=== PATIENT | male | born 1955 | race Caucasian/White ===

== ENCOUNTER 2025-02-07 10:29 | Outpatient (REF) | payer MEDICARE, SELFPAY ==
--- OUTSIDE RECORDS SUMMARY | 2025-02-06 09:00 | XMS_ITS | Encounter Summary ---
Author Organization [facility] Address [address] [place] [address] Care Team Providers Care Oil Well Logger Name Role Phone Pankaj Storey Primary Care Provider [phone] Reason for Visit * Reason Comments Cough Asthma * Consultation (Routine) - Authorized Specialty Diagnoses / Procedures Referred By Patel parra Referred To Contact Pulmonology Diagnoses Cough Asthma Procedures WI VISIT OFFICE OUTPATIENT ESTABLISHED MODERATE LEVEL Pankaj Storey PA [address] [facility] [address] [place] [address] Phone: tel: fax: Pulmonology - [place] 175 [facility] [address] [place] [address] Phone: tel: fax: Referral ID Status Reason Start Date Expiration Date V isits Requested Visits Authorized [id number] Authorized 01/10/2025 01/10/2026 1 1 Encounter Details Date Type Department Care Team ([facility] st Contact Info) Description 02/06/2025 9:00 AM EDT Consult Pulmonology [facility] [address] [facility] [address] [place] [phone] Jessica Ulrich MD 175 [facility] [address] [place] [address] Mild intermittent asthma, unspecified whether complicated (Primary Dx) Social History Tobacco Use Types Packs/Day Years Used Date Smoking Tobacco: Never Smokeless Tobacco: Never Alcohol Use Standard Drinks/Week Comments Yes 0 (1 standard drink = 0.6 oz pur e alcohol) Sex and Gender Information Value Date Recorded Sex Assigned at Male 01/26/2025 4:26 PM EDT Legal Sex Male 4:07 PM EST Gender Identity Male 01/26/2025 4:26 PM EDT Sexual Orientation Not on file documented as of this encounter Last Filed Vital Signs Vital Sign Reading Time Taken Comments Blood Pressure 130/78 02/06/2025 9:18 AM EDT Pulse 55 02/06/2025 9:18 AM EDT Temperature - - Respiratory Rate - - Oxygen Saturation 96% 02/06/2025 9:18 AM EDT Inhaled Oxygen Concentration - - Weight 79.7 kg (175 lb 12.8 oz) 02/06/2025 9:18 AM EDT Height 182.9 cm (6') 02/06/2025 9:18 AM EDT Body Mass Index 23.84 02/06/2025 9:18 AM EDT documented in this encounter Ordered Prescriptions Prescription Sig Dispense Quantity Refills Last Filled Start Date End Date albuterol HFA (PROAIR HFA ; PROVENTIL HFA ; VENTOLIN HFA) 90 mcg/actuation inhaler Inhale 2 puffs by mouth every 6 (six) hours if needed for wheezing. 6.7 g 1 02/06/2025 02/06/2026 documented in this encounter Progress Notes * Jessica Ulrich MD - 02/06/2025 9:00 AM EDT ADULT PULMONARY CONSULT CHIEF COMPLAINT or REASON FOR CONSULTATION: Cough and Asthma HISTORY OF PRESENT ILLNESS: Pipo Vidal is a 69 y.o. years old, male with a history of mild intermittent asthma, OSAand allergic rhinitis well controlled now. Last seen by me in 04/2020. He was on Flovent and montelukast that.The patient was also seeing ENT for postnasal drip. Since last visit, his pulmonary status has beenvery stable and he has been off his maintenance minute patient as well as montelukast. He has no chronic cough, wheezing or shortness of breath. The patient went to PCP for nasal congestion and cough, the symptoms improved with flonase and atrovent. No fever, wheezing or SOB. In terms of CHETAN- sleepon the side. No symptoms or drowsiness driving ALLERGIES: Current Allergies[1] ACTIVE MEDICATIONS: Medications Taking[2] PROVIDER ATTESTS THAT THE MEDICATION LIST WAS OBTAINED, REVIEWED AND UPDATED. REVIEW OF SYSTEMS: GENERAL: No wt lost or fever ENT: +snoring, + nasal congestion Eye: RESPIRATORY: + cough, wheezing and dyspnea CARDIOVASCULAR: No chest pain, leg swelling or palpitations GI: No abdominal discomfort, MUSCULOSKELETAL: +backpain HEMATOLOGY/LYMPHOLOGY No prolonged bleeding, easy bruisability ENDOCRINE: no DM NEURO: No focal weakness : Psych: no depression PAST MEDICAL HISTORY: There are no active problems to display for this patient. Surgical History[3] FAMILY HISTORY: Family History[4] OCCUPATION OR OCCUPATION EXPOSURE: retire SOCIAL HISTORY Social History Socioeconomic History Marital status: Spouse name: Not on file Number of children: Not on file Years of education: Not on file Highest education level: Not on file Occupational History Not on file Tobacco Use Smoking status: Never Smokeless tobacco: Never Substance and Sexual Activity Alcohol use: Yes Drug use: No Sexual activity: Not on file Other Topics Concern Not on file Social History Narrative Not on file IMMUNIZATION: Immunization History Administered Date(s) Administered Pfizer (ages 12 & older) Bivalent, COVID-19 04/27/2022 Pfizer (ages 12 & older) SARS-CoV-2 COVID-19, mRNA, LNP-S, jb-sucrose, preservative free 10/13/2021 Pfizer SARS-CoV-2 COVID-19, mRNA, LNP-S, preservative free 07/02/2020, 07/24/2020, 02/28/2021 PHYSICAL EXAM: Visit Vitals BP 130/78 (BP Location: Left arm, Patient Position: Sitting, BP Cuff Size: Adult long) Pulse 55 Ht 1.829 m (72 ) Wt 79.7 kg (175 lb 12.8 oz) SpO2 96% BMI 23.84 kg/m?? Smoking Status Never BSA 2.02 m?? APPEARANCE: Alert and in no acute distress. Tall, thin EYES: Conjunctiva and sclera normal. NOSE/SINUS: Nares normal. Septum midline. Mucosa No drainage or sinus tenderness. MOUTH/THROAT: no erythema or exudates. Mallampati class 2 NECK: Neck supple, thyroid symmetric and of normal size. HEART: RRR with normal S1 and S2, no murmurs, no gallops, no JVD appreciated. LUNG: CTA b/l, no wheezing or bronchial bs ABDOMEN: Bowel sounds normoactive, soft, non-tender EXTREMITIES: no clubbing, cyanosis, or edema. LYMPH NODES: No cervical and supra-clavicular lymphadenopathy. NEURO: Awake, alert and oriented x 3, no focalization Derm: no rash DIAGNOSTIC DATA: CARDIOPULMONARY TEST:01/27/25 SPIROMETRY: FEV1 is 99 % predicted and an FVC is 89 % predicted. The FEV1/FVC ratio is 109% of normal, no response to bronchodilators noted. LUNG VOLUMES: Total lung capacity (TLC): 85% predicted. Residual volume (RV): 88% predicted RV/TLC ratio is 105% of normal DIFFUSION CAPACITY: DLCO 123% predicted. DlCO/VA 122% of predicted COMPARISONS: INTERPRETATION: This pulmonary function test shows normal spirometry and diffusion. There is no evidence of lung disease based on this PFT RADIOLOGIST IMAGING: cxr 12/2024 [facility] per pt ASSESSMENT: ICD-10-CM ICD-9-CM 1. Mild intermittent asthma, unspecified whether complicated J45.20 493.90 PLAN: The patient's PFT and chest x-ray were both normal in the last 2 months. He has no chronic lung disease and has no shortness of breath with regular activities. I sent him a prescription for as neededalbuterol. No other interventions is indicated - Follow up with ERIKA Armas for the other co-morbilities. - I spend 34 Minutes on this visit. The patient was educated about his problems, where assessment and plan was reviewed and explained, All questions were answered. This includes: Preparing to see the patient, obtaining and/or reviewing separately obtained history, performing a medically appropriate exam, ordering medications, tests, or procedures, documenting clinical information in the electronic health record, and independently interpreting results. RETURN TO THE NEXT VISIT: Based on physical exam, symptomatology, tests requested and baseline pulmonary evaluation/disease, I instructed the patient to come back to see me in prn for reevaluation after the test has been doneor earlier if the patient needed. Thanks ERIKA Armas for allowing me to have the opportunity to assist in the care of this patient. [1] No Known Allergies [2] Outpatient Medications Marked as Taking for the 02/06/25 encounter (Consult) with Jessica Ulrich MD Medication Sig Dispense Refill amLODIPine (NORVASC) 2.5 mg tablet Take 1 tablet (2.5 mg total) by mouth 1 (one) time each day. coenzyme Q-10 100 mg capsule Take 1 capsule (100 mg total) by mouth 1 (one) time each day. Eliquis 5 mg tablet Take 1 tablet (5 mg total) by mouth 2 (two) times a day. ezetimibe (ZETIA) 10 mg tablet Take 1 tablet (10 mg total) by mouth 1 (one) time each day. finasteride (PROSCAR) 5 mg tablet Take 1 tablet (5 mg total) by mouth 1 (one) time each day. fluticasone propionate (FLONASE) 50 mcg/actuation nasal spray Administer 1 spray into each nostril 1 (one) time each day. hydrALAZINE (APRESOLINE) 50 mg tablet Take 1 tablet (50 mg total) by mouth 2 (two) times a day. ipratropium (ATROVENT) 21 mcg (0.03 %) nasal spray Administer 1 spray into each nostril 2 (two) times a day. losartan (COZAAR) 100 mg tablet Take 1 tablet (100 mg total) by mouth 1 (one) time each day. metoprolol succinate (TOPROL-XL) 25 mg 24 hr tablet Take 1 tablet (25 mg total) by mouth 1 (one) time each day. omeprazole (PRILOSEC) 20 mg tablet,delayed release (DR/EC) Take 1 tablet (20 mg total) by mouth. rosuvastatin (CRESTOR) 20 mg tablet Take 1 tablet (20 mg total) by mouth 1 (one) time each day. [3] No past surgical history on file. [4] No family history on file. documented in this encounter Plan of Treatment Not on file documented as of this encounter Visit Diagnoses Diagnosis Mild intermittent asthma, unspecified whether complicated- Primary documented in this encounter Historical Medications * This list may reflect changes made after this encounter. ipratropium (ATROVENT) 21 mcg (0.03 %) nasal spray Administer 1 spray into each nostril 2 (two) times a day. hydrALAZINE (APRESOLINE) 50 mg tablet Take 1 tablet (50 mg total) by mouth 2 (two) times a day. 04/01/2021 metoprolol succinate (TOPROL-XL) 25 mg 24 hr tablet Take 1 tablet (25 mg total) by mouth 1 (one) time each day. 12/30/2011 finasteride (PROSCAR) 5 mg tablet Take 1 tablet (5 mg total) by mouth 1 (one) time each day. 12/09/2022 ezetimibe (ZETIA) 10 mg tablet Take 1 tablet (10 mg total) by mouth 1 (one) time each day. 02/19/2023 coenzyme Q-10 100 mg capsule Take 1 capsule (100 mg total) by mouth 1 (one) time each day. rosuvastatin (CRESTOR) 20 mg tablet Take 1 tablet (20 mg total) by mouth 1 (one) time each day. 11/25/2024 omeprazole (PRILOSEC) 20 mg tablet,delayed release (DR/EC) Take 1 tablet (20 mg total) by mouth. losartan (COZAAR) 100 mg tablet Take 1 tablet (100 mg total) by mouth 1 (one) time each day. 11/25/2024 fluticasone propionate (FLONASE) 50 mcg/actuation nasal spray Administer 1 spray into each nostril 1 (one) time each day. Eliquis 5 mg tablet Take 1 tablet (5 mg total) by mouth 2 (two) times a day. 07/10/2014 amLODIPine (NORVASC) 2.5 mg tablet Take 1 tablet (2.5 mg total) by mouth 1 (one) time each day. 12/09/2022 added in this encounter Care Teams Oil Well Logger Relationship Specialty Start Date End Date Pankaj Storey PA [address] [phone] PCP - General Internal Medicine 01/26/25 documented as of this encounter
--- OUTSIDE RECORDS SUMMARY | 2025-02-07 11:44 | XMS_ITS | Clinical Summary ---
Author Organization [facility] Address [address] [facility] [address] [place] [address] Phone Care Team Providers Care Ppa Teacher Name Role Phone Kaleb Vilchis MD Primary Care Provider Meredith Nayak MD Unavailable Allergies No known active allergies Medications BABY ASPIRIN ORAL Take by mouth. Active metoprolol succinate (TOPROL-XL) 25 MG 24 hr tablet Take 25 mg by mouth daily. Active valsartan (DIOVAN) 80 MG tablet Take 80 mg by mouth daily. Active hydrALAZINE (APRESOLINE) 25 MG tablet Take 25 mg by mouth daily. Active ATORVASTATIN CALCIUM (LIPITOR ORAL) Take 20 mg by mouth daily. Active coenzyme Q10 100 mg capsule Take 100 mg by mouth daily. Active TADALAFIL (CIALIS ORAL) Take by mouth daily as needed. Active nitroglycerin (NITROSTAT) 0.4 MG SL tabletIndicatio ns:never used Place 0.4 mg under the tongue every 5 (five) minutes as needed for chest pain. Indications: never used Active raNITIdine (ZANTAC) 150 MG tablet Take 150 mg by mouth 2 (two) times a day. Active azelastine-flut icasone (DYMISTA) 137-50 mcg/spray Lula 1 spray by Each Nare route 2 (two) times a day. Active apixaban (ELIQUIS) 5 mg tablet Take 5 mg by mouth 2 (two) times a day. 07/10/2014 Active mometasone (ASMANEX HFA) 100 mcg/actuation HFAA Inhale 200 mcg into the lungs as needed. Active losartan (COZAAR) 50 MG tablet Take 50 mg by mouth daily. Active Active Problems Problem Noted Date Diagnosed Date Essential hypertension 03/19/2015 Atherosclerosis of coronary artery 03/19/2015 Atrial fibrillation 11/07/2013 Overview (07/01/2014): Atrial fibrillation Social History Tobacco Use Types Packs/Day Years Used Date Smoking Tobacco: Never Smokeless Tobacco: Never Education Answer Date Recorded Are you interested in more education? Not on ver[place] e 09/05/2022 Are you concerned about learning? Not on file 09/05/2022 No 09/05/2022 No 09/05/2022 Digital Access Answer Date Recorded No 10/05/2022 No 10/05/2022 No 10/05/2022 Reliable internet access at home? Not on file 10/05/2022 Device with a working camera? Not on file Sex and Gender Information Value Date Recorded Sex Assigned at Not on file Legal Sex Male 5:36 PM EST Gender Identity Not on file Sexual Orientation Not on file Last Filed Vital Signs Vital Sign Reading Time Taken Comments Blood Pressure 124/80 12/27/2018 11:45 AM EDT Pulse 52 12/27/2018 11:45 AM EDT Temperature - - Respiratory Rate - - Oxygen Saturation - - Inhaled Oxygen Concentration - - Weight 80.3 kg (177 lb) 12/27/2018 11:45 AM EDT Height 183.5 cm (6' 0.25 ) 03/19/2015 2:35 PM ES T Body Mass Index 23.84 03/19/2015 2:35 PM EST Plan of Treatment Health Maintenance Due Date Last Done Comments BLOOD PRESSURE 1955 HEPATITIS C SCREENING 1971 LIPID PANEL 1971 COLOGUARD 1998 COLONOSCOPY 1998 COLORECTAL CANCER SCREENING 1998 FIT TEST 1998 FOBT 1998 SIGMOIDOSCOPY 1998 VIRTUAL COLONOSCOPY 1998 ZOSTER VACCINES (1 of 2) 2003 CREATININE LEVEL 12/30/2014 12/30/2013, 12/28/2013 POTASSIUM LEVEL 12/30/2014 12/30/2013, 12/28/2013 DEPRESSION SCREENING 12/28/2019 12/27/2018, 03/19/20 15 Adult Td,Tdap Booster 05/13/2020 05/13/2010, 000 PNEUMOCOCCAL VACCINES (50+ years) (3 of 3 - PCV20 or PCV21) 04/21/2024 04/21/2019, 03/11/2002 INFLUENZA VACCINE (#1) 2024 0, 02/04/2019, 01/18/2018, Additional history exists COVID-19 VACCINE (2 - 2024- season) 2025 07/24/2020 RSV VACCINE (1 - 1-dose 75+ series) 2028 SMOKING STATUS SCREENING (Once After 26 Yrs) Completed 12/27/2018 HEPATITIS A VACCINES Aged Out No long er eligible based on patient's age to complete this topic HIB VACCINES Aged Out No longer eligi ble based on patient's age to complete this topic MENINGOCOCCAL VACCINES (ACWY) Aged Out No longer eligible based on patient's age to complete this topic MENINGOCOCCAL VACCINES (B) Aged Out N o longer eligible based on patient's age to complete this topic Medical Devices Not on file Procedures Procedure Name Priority Date/Time Associated Diagnosis Comments HISTORICAL LAB Routine 12/30/2013 7:46 AM EDT from Last 3 Months or Most Recently Relevant to Health Maintenance Results * (ABNORMAL) Historical Lab (12/30/2013 7:46 AM EDT) GLUCOSE 66(A) 70 - 100 mg/dL [facility] UREA N 20 6 - 23 mg/dL [facility] CREATININE 0.98 0.50 - 1.20 mg/dL [facility] eGFR >=60 [facility] Comment: (Abnormal if <60 mL/min/1.73m2 If patient is black, multiply by 1.21) SODIUM 138 136 - 145 mmol/L [facility] POTASSIUM 3.6 3.4 - 5.0 mmol/L [facility] CHLORIDE 104 98 - 107 mmol/L [facility] TOTAL CO2 25 22 - 31 mmol/L [facility] CALCIUM 8.7(A) 8.8 - 10.7 mg/dL [facility] MAGNESIUM 2.3 1.7 - 2.6 mg/dL [facility] ANION GAP 9 5 - 17 mmol/L [facility] 12/30/2013 7:46 AM EDT Comment:BLOOD us Conversion Provider Not In Sys LAB BLOOD ORDERAB LES Final Result [address] [id number] from Last 3 Months or Most Recently Relevant to Health Maintenance Insurance MEDICARE PART A & B [email or web address]EX SUPPLEMENT MEDICARE PART A & B [employer] MEDEX SUPPLEMENT MEDICARE PART A & B [employer] MEDEX SUPPLEMENT MEDICARE PART A & B [employer] MEDEX SUPPLEMENT MEDICARE PART A & B [employer] MEDEX SUPPLEMENT MEDICARE PART A & B [email or web address] MEDEX SUPPLEMENT MEDICARE PART A & B [email or web address] MEDEX SUPPLEMENT MEDICARE PART A & B [email or web address] MEDEX SUPPLEMENT MEDICARE PART A & B [email or web address] MEDEX SUPPLEMENT Care Teams Ppa Teacher Relationship Specialty Start Date End Date Kaleb Vilchis MD [address] [place] [phone] PCP - General 09/14/14 Meredith Nayak MD [address] [place] [address] Cardiology 03/19/15 Additional Source Comments The information contained in this document represents components of the legal health record. It is not the complete legal health record.[facility]
--- OUTSIDE RECORDS SUMMARY | 2025-02-07 11:44 | XMS_ITS | Clinical Summary ---
Author Organization [facility] Address [address] [place] [address] Phone Care Team Providers Care Hand Coremaker Name Role Phone Pankaj Storey Primary Care Provider Allergies No known active allergies Medications amLODIPine (NORVASC) 2.5 mg tablet Take 1 tablet (2.5 mg total) by mouth 1 (one) time each day. 3 Active Eliquis 5 mg tablet Take 1 tablet (5 mg total) by mouth 2 (two) times a day. 5 Active fluticasone propionate (FLONASE) 50 mcg/actuation nasal spray Administer 1 spray into each nostril 1 (one) time each day. Active losartan (COZAAR) 100 mg tablet Take 1 tablet (100 mg total) by mouth 1 (one) time each day. 5 Active omeprazole (PRILOSEC) 20 mg tablet,delayed release (DR/EC) Take 1 tablet (20 mg total) by mouth. Active rosuvastatin (CRESTOR) 20 mg tablet Take 1 tablet (20 mg total) by mouth 1 (one) time each day. 5 Active coenzyme Q-10 100 mg capsule Take 1 capsule (100 mg total) by mouth 1 (one) time each day. Active ezetimibe (ZETIA) 10 mg tablet Take 1 tablet (10 mg total) by mouth 1 (one) time each day. 3 Active finasteride (PROSCAR) 5 mg tablet Take 1 tablet (5 mg total) by mouth 1 (one) time each day. 3 Active metoprolol succinate (TOPROL-XL) 25 mg 24 hr tablet Take 1 tablet (25 mg total) by mouth 1 (one) time each day. 2 Active hydrALAZINE (APRESOLINE) 50 mg tablet Take 1 tablet (50 mg total) by mouth 2 (two) times a day. 1 Active ipratropium (ATROVENT) 21 mcg (0.03 %) nasal spray Administer 1 spray into each nostril 2 (two) times a day. Active albuterol HFA (PROAIR HFA ; PROVENTIL HFA ; VENTOLIN HFA) 90 mcg/actuation inhaler Inhale 2 puffs by mouth every 6 (six) hours if needed for wheezing. 6.7 g 1 5 02/07/20 26 Active Encounters Date Type Department Care Team Description 02/06/2025 9:00 AM EDT Consult Pulmonology - [place] [address] [facility] [address] [place] [phone] Jessica Ulrich MD Mild intermittent asthma, unspecified whether complicated (Primary Dx) 01/27/2025 9:44 AM EDT - 01/27/2025 11:59 PM EDT Hospital Encounter [facility] Pul[facility] [address] [place] [phone] Cough variant asthma Discharge Disposition: Home or Self Care from Last 3 Months Social History Tobacco Use Types Packs/Day Years [...] PM EDT Sexual Orientation Not on file Obstetrics History Last Filed Vital Signs Vital Sign Reading [...] Mass Index 23.84 02/06/2025 9:18 AM EDT Plan of Treatment Health Maintenance Due Date Last Done Comments Colorectal Cancer Screening: Colonoscopy 1955 Zoster Vaccines (1 of 2) 2003 RSV Immunization Adult Patients (1 - Risk 60-74 years 1-dose series) 2013 Abdominal Aortic Aneurysm (AAA) Screen 04/19/2022 Cholesterol Screening (Lipid Panel) 04/19/2022 Falls Risk Assessment 04/19/2022 Hepatitis C Screening 04/19/2022 Medicare Annual Wellness Visit 04/19/2022 Social Influencers of Health Screening 04/19/2022 Depression Screening 05/11/2024 COVID-19 Vaccine ( season) 2025 04/27/2022, 10/13/2021, 02/28/2021, Additional history exists Influenza Vaccine (#1) 2025 , 03/16/2023, 03/03/2022, Additional history exists Hypertension/CHF/CAD Annual BMP Blood Test 01/27/2025 DTaP,Tdap,and Td Vaccines (4 - Td or Tdap) 08/14/2032 08/14/2022, 05/13/2010, 05/11/1999 Pneumococcal Vaccine: 50+ Years Completed 03/27/2021, 04/21/2019, 03/11/2002 HIB Vaccines Aged Out No longer eligi ble based on patient's age to complete this topic HPV Vaccines Aged Out No longer eligi ble based on patient's age to complete this topic Hepatitis A Vaccines Aged Out No long er eligible based on patient's age to complete this topic Hepatitis B Vaccines Aged Out No long er eligible based on patient's age to complete this topic IPV Vaccines Aged Out No longer eligi ble based on patient's age to complete this topic MMR Vaccines Aged Out No longer eligi ble based on patient's age to complete this topic Meningococcal ACWY Vaccine Aged Out N o longer eligible based on patient's age to complete this topic Meningococcal B Vaccine Aged Out No l onger eligible based on patient's age to complete this topic RSV Immunization Patients Under 20 months Aged Out No longer eligible based on patient's age to complete this topic Varicella Vaccines Aged Out No longer eligible based on patient's age to complete this topic Procedures Procedure Name Priority Date/Time Associated Diagnosis Comments HC SPIROMETRY BRONCHODILATION RESPONSIVENESS PRE/POST BRONCHODILATOR ADMINISTRATION Routine 01/27/2025 10:40 AM EDT Cough variant asthma from Last 3 Months Results * Pulmonary function testing: Carbon Monoxide Diffusing Capacity, Nitrogen Wash Out, Spirometry with Bronchodilator (01/27/2025 10:40 AM EDT) Narrative Jessica Ulrich MD - 01/31/2025 2:29 PM EDT Table formatting from the original result was not included. Images from the original result were not included. [facility] Pul[facility] Lab [address] [place] [id number] Pulmonary Functions Report Date of service: 01/27/25 Patient Name: Cj Dexter Date of : 1955 Age: 69 y.o. Gender: male Ordering Provider: ERIKA Armas Diagnosis listed on Order: Cough variant asthma Reason for Exam: Order Questions Answers Reason for Exam: COUGH VARIANT ASTHMA Which PFTs would you like to perform? Carbon Monoxide Diffusing Capacity,Nitrogen Wash Out,Spirometry with Bronchodilator SPIROMETRY: FEV1 is 99 % predicted and [...] of lung disease based on this PFT us Pankaj JAMES PFT ORDERABLES Final Result from Last 3 Months Insurance MEDICARE [facility] Care Teams Hand Coremaker Relationship Specialty Start Date End Date Pankaj Storey PA [address] [phone] PCP - General Internal Medicine 01/26/25
== END 2025-02-07 10:30 | disposition home or self-care (01) ==
LOC: HO.BBR 10:29
PROVIDERS: PCP Physician Assistant Medical; Visit Provider Internal Medicine Hematology & Oncology
DX: D45 Polycythemia vera (principal)
CPT/HCPCS: 85014; 85018; 99195

== ENCOUNTER 2025-02-23 09:42 | Outpatient (REF) | payer MEDICARE, SELFPAY ==
--- OUTSIDE RECORDS SUMMARY | 2025-02-23 11:17 | XMS_ITS | Clinical Summary ---
Author Organization [facility] Address [address] [facility] [address] [place] [address] Phone Care Team Providers Care Field Contact Person Name Role Phone Kaleb Vilchis MD Primary Care Provider Meredith Nayak MD Unavailable [phone] Allergies No known active allergies Medications BABY [...] day. Active azelastine-flut icasone (DYMISTA) 137-50 mcg/spray [place] 1 spray by Each Nare route 2 [...] EDT) GLUCOSE 66(A) 70 - 100 mg/dL [facility] UREA N 20 6 - 23 mg/dL [facility] CREATININE 0.98 0.50 - 1.20 mg/dL [facility] eGFR >=60 [facility] Comment: (Abnormal if <60 mL/min/1.73m2 If patient is black, multiply by 1.21) SODIUM 138 136 - 145 mmol/L [facility] POTASSIUM 3.6 3.4 - 5.0 mmol/L [facility] CHLORIDE 104 98 - 107 mmol/L [facility] TOTAL CO2 25 22 - 31 mmol/L [facility] CALCIUM 8.7(A) 8.8 - 10.7 mg/dL [facility] MAGNESIUM 2.3 1.7 - 2.6 mg/dL [facility] ANION GAP 9 5 - 17 mmol/L [facility] 12/30/2013 7:46 AM EDT Comment:BLOOD us Conversion Provider Not In Sys LAB BLOOD ORDERAB LES Final Result [address] [id number] from Last 3 Months or Most Recently Relevant to Health Maintenance Insurance MEDICARE PART A & B [employer] MEDEX SUPPLEMENT MEDICARE PART A & B [employer] MEDEX SUPPLEMENT MEDICARE PART A & B [employer] MEDEX SUPPLEMENT MEDICARE PART A & B [employer] CR[employer] MEDEX SUPPLEMENT MEDICARE PART A & B [employer] MEDEX SUPPLEMENT MEDICARE PART A & B [employer] MEDEX SUPPLEMENT MEDICARE PART A & B [employer] MEDEX SUPPLEMENT MEDICARE PART A & B [employer] MEDEX SUPPLEMENT MEDICARE PART A & B [employer] MEDEX SUPPLEMENT Care Teams Field Contact Person Relationship Specialty Start Date End Date Kaleb Vilchis MD [address] [place] [id number] PCP - General 09/14/14 Meredith Nayak MD [address] [place] [phone] Cardiology 03/19/15 Additional Source Comments The information contained in this document represents components of the legal health record. It is not the complete legal health record.[facility]
--- OUTSIDE RECORDS SUMMARY | 2025-02-23 11:17 | XMS_ITS | Clinical Summary ---
Author Organization [facility] Address [address] [place] [address] Phone Care Team Providers Care Brick Mason Name Role Phone Pankaj Storey Primary Care [...] 02/06/2025 9:00 AM EDT Consult Pulmonology - [place] [address] [facility] [address] [place] [phone] Jessica Ulrich MD Mild intermittent asthma, unspecified whether complicated (Primary Dx) 01/27/2025 9:44 AM EDT - 01/27/2025 11:59 PM EDT Hospital Encounter [facility] [address] [place] [phone] Cough variant asthma Discharge Disposition: Home or [...] Done Comments Colorectal Cancer Screening: Colonoscopy 1955 RSV Immunization Adult Patients (1 - Risk 50-74 years 1-dose series) 2003 Zoster Vaccines (1 of 2) 2003 Abdominal Aortic Aneurysm (AAA) Screen 04/19/2022 Cholesterol [...] from the original result were not included. [facility] [address] [place] [phone] Pulmonary Functions Report Date of service: 01/27/25 [...] Result from Last 3 Months Insurance MEDICARE [facility] Care Teams Brick Mason Relationship Specialty Start Date End Date Pankaj Storey PA [address] [phone] PCP - General Internal Medicine 01/26/25
== END 2025-02-23 09:43 | disposition home or self-care (01) ==
LOC: HO.BBR 09:42
PROVIDERS: PCP Physician Assistant Medical; Visit Provider Internal Medicine Hematology & Oncology
DX: D45 Polycythemia vera (principal)
CPT/HCPCS: 85018; 99195

== ENCOUNTER 2025-03-09 09:48 | Outpatient (REF) | payer MEDICARE, SELFPAY ==
--- OUTSIDE RECORDS SUMMARY | 2025-03-09 11:31 | XMS_ITS | Clinical Summary ---
Author Organization [facility] Address [address] [facility] [address] [place] [address] Phone Care Team Providers Care Campaign Developer Name Role Phone Kaleb Vilchis MD Primary Care Provider Meredith Nayak MD Unavailable [phone] Allergies No known active allergies Medications BABY [...] day. Active azelastine-flut icasone (DYMISTA) 137-50 mcg/spray [place] 1 spray by Each Nare route 2 [...] EDT) GLUCOSE 66(A) 70 - 100 mg/dL [facility] UREA N 20 6 - 23 mg/dL [facility] CREATININE 0.98 0.50 - 1.20 mg/dL [facility] eGFR >=60 [facility] Comment: (Abnormal if <60 mL/min/1.73m2 If patient is black, multiply by 1.21) SODIUM 138 136 - 145 mmol/L [facility] POTASSIUM 3.6 3.4 - 5.0 mmol/L [facility] CHLORIDE 104 98 - 107 mmol/L [facility] TOTAL CO2 25 22 - 31 mmol/L [facility] CALCIUM 8.7(A) 8.8 - 10.7 mg/dL [facility] MAGNESIUM 2.3 1.7 - 2.6 mg/dL [facility] ANION GAP 9 5 - 17 mmol/L [facility] 12/30/2013 7:46 AM EDT Comment:BLOOD us Conversion Provider Not In Sys LAB BLOOD ORDERAB LES Final Result [address] [phone] from Last 3 Months or Most Recently Relevant to Health Maintenance Insurance MEDICARE PART A & B [employer] MEDEX SUPPLEMENT MEDICARE PART A & B BLUE [employer] MEDEX SUPPLEMENT MEDICARE PART A & B [employer] MEDEX SUPPLEMENT MEDICARE PART A & B [employer] CROSS MEDEX SUPPLEMENT MEDICARE PART A & B [employer] MEDEX SUPPLEMENT MEDICARE PART A & B [employer] MEDEX SUPPLEMENT MEDICARE PART A & B [employer] MEDEX SUPPLEMENT MEDICARE PART A & B [employer] MEDEX SUPPLEMENT MEDICARE PART A & B [employer] MEDEX SUPPLEMENT Care Teams Campaign Developer Relationship Specialty Start Date End Date Kaleb Vilchis MD [address] [place] [id number] PCP - General 09/14/14 Meredith Nayak MD [address] [place] [phone] Cardiology 03/19/15 Additional Source Comments The information contained in this document represents components of the legal health record. It is not the complete legal health record.[facility]
--- OUTSIDE RECORDS SUMMARY | 2025-03-09 11:31 | XMS_ITS | Clinical Summary ---
Author Organization [facility] Address [address] [place] [address] Phone Care Team Providers Care Senior Cognos Developer Name Role Phone Pankaj Storey Primary Care Provider [phone] Allergies No known active allergies Medications amLODIPine [...] 02/06/2025 9:00 AM EDT Consult Pulmonology - [place] [address] [facility] [address] [place] [phone] Jessica Ulrich MD Mild intermittent asthma, unspecified whether complicated (Primary Dx) 01/27/2025 9:44 AM EDT - 01/27/2025 11:59 PM EDT Hospital Encounter [facility] [address] [place] [phone] Cough variant asthma Discharge Disposition: Home or [...] from the original result were not included. [facility] [address] [place] [phone] Pulmonary Functions Report Date of service: 01/27/25 [...] Result from Last [address] [facility] Care Teams Senior Cognos Developer Relationship Specialty Start Date End Date Pankaj Storey PA [address] [phone] PCP - General Internal Medicine 01/26/25
--- OUTSIDE RECORDS SUMMARY | 2025-03-09 11:31 | XMS_ITS | Data Portability ---
Author Organization [facility], Main Office Address [address] [place] [address] Care Team Providers Care Loan Specialist Name Role Phone [facility] SWETHA OTHER MERRICK PICKERING Timber Supervisor SWETHA YOUNG Urologist BELINDA DAVEY Dentist Private Practice LUCRETIA NICOLE Primary Care Provider KARLOS HARO OTHER [phone] [facility]VERONA COREY) Orthopedic Surgeon PAUL HENNING Wraparound Facilitator MENA BARNEY Digitizer LEANNE KAN Referring Provider Assessment No assessment recorded. Plan of Treatment Reminders Order Date Submit Date Provider Last Modified By Organization Details Last Modified Time Details Appointments [id number] 2024 08:45A Yadira Nicole PA-C Not available Not available Not available Lab HbA1c (hemoglob in A1c), blood 2024 025 AJAY [facility] (Centralized Electronic Ordering - All Locations), Patient Can Go To The Location Of Their Choice, 02/06/2025 13:33:10 BMP, serum or plasma 2024 025 AJAY [facility] (Centralized Electronic Ordering - All Locations), Patient Can Go To The Location Of Their Choice, 02/06/2025 13:33:11 erythropo ietin (epo), serum 2024 025 AJAY [facility] (Centralized Electronic Ordering - All Locations), Patient Can Go To The Location Of Their Choice, 11/16/2024 10:06:18 retic count, blood 2024 025 AJAY [facility] (Centralized Electronic Ordering - All Locations), Patient Can Go To The Location Of Their Choice, 11/16/2024 10:06:19 CBC w/ auto diff 2024 025 AJAY [facility] (Centralized Electronic Ordering - All Locations), Patient Can Go To The Location Of Their Choice, 11/16/2024 10:06:16 ferritin, serum or plasma 2024 025 AJAY [facility] (Centralized Electronic Ordering - All Locations), Patient Can Go To The Location Of Their Choice, 11/16/2024 10:06:18 jak2 (V617F) mutation, blood/tis josh 2024 025 AJAY [facility] (Centralized Electronic Ordering - All Locations), Patient Can Go To The Location Of Their Choice, 11/16/2024 10:06:17 carboxyhe moglobin/ hemoglobi n total, blood 2024 025 AJAY [facility] (Centralized Electronic Ordering - All Locations), Patient Can Go To The Location Of Their Choice, 11/10/2024 15:08:35 Referral pulmonolo gist referral 2024 025 AJAY Ulrich MD, [address] [facility], [address], [place], [address], 02/06/2025 19:58:51 Procedures None recorded. Surgeries None recorded. Imaging PFT, complete [id number] [place] [address] ([facility]), [address] [place], [address], 01/12/2025 15:45:43 XR, chest, 2 view 2024 025 [facility], [address] [place], [address], 01/10/2025 15:31:[address] 10 mg tablet 2024 025 [email or web address] [facility]/Pharmacy #[id number], [address] [place], [address], 02/06/2025 12:54:23 benzonata te 200 mg capsule 2024 025 [id number] [address] [place], [address], 12/31/2024 05:01:29 ipratropi um bromide 21 mcg (0.03 %) nasal spray 2024 025 [id number] [address] [place], [address], 12/14/2024 14:09:48 scopolami ne 1 mg over 3 days transderm al patch 2024 025 [id number] [address] [place], [address], 10/24/2024 05:01:47 Patient Targets Encounter Date Encounter Id Patient Goals Patient Target Last Modified By Organization Details Last Modified Time 02/06/2025 [id number] intermediate goal of Blood Pressure 140 / 90 Not available Not available Not available supervisor intermediates goal of Exercise level Not available Not available Not available intermediate goal of Tobacco Smoking Status Not available Not available Not available 02/06/2025 [id number] Pt advised and agrees to eat a low salt low fat diet; to do moderate exercise (such as walking) 150 minutes per week; to limit alcohol intake (goal of 2 drinks per day or less for men or 1 for woman). and to monitor dietary sodium. Will monitor home blood pressures and bring readings to appointments. Patient preferences and goals incorporated in plan and updated/modifie d as needed to reflect progress toward goal. pmadden Not available 02/06/2025 13:42:26 Patient Instructions Encounter Date Encounter Id Patient Instructions Last Modified By Organization Details Last Modified Time 10/10/2024 [id number] Skin Cyst: Care Instructions pmadden Not available 10/10/2024 09:53:14 Follow up as needed. pmadden Not available 10/10/2024 10:07:26 11/10/2024 [id number] polycythemia: care instructions cameron Not available 11/10/2024 14:56:30 01/10/2025 [id number] Patient will follow up and keep appointment as scheduled. pmadden Not available 01/10/2025 09:55:16 02/06/2025 [id number] Medications (OTC, herbal therapies, supplements) reviewed and reconciled with patient and or caregiver, including potential side effects, drug interactions, instructions, and the consequences of not taking medication. Reviewed potential barriers to medication adherence, such as side effects from medication or cost of medication. pmadden Not available 02/06/2025 13:28:56 Reason for Referral Program Therapist Referral for C ough variant asthma Referring Physician: Lucretia Nicole, Internal Medicine, Encounter Date: 01/10/2025 Results Created Date Observation Date Name Description Value Unit Range Abnormal Flag Note LastModifiedBy Organization Detail LastModifiedTime 11/10/19 25 11/10/2024 VITAM IN D, 25-HY DROXY vitamin D, 25-hydroxy 39.7 NG/mL 30.0-1 00.0 Vitam in D defic iency has been defin ed by the Insti tute of Medic ine and an Endoc rine Socie ty pract ice guide line as a level of serum 25-OH vitam in D less than 20 ng/mL (1,2) . The Endoc rine Socie ty went on to [facility] er defin e vitam in D insuf ficie ncy as a level betwe en 21 and 29 ng/mL (2). 1. IOM (Inst itute of Medic ine). 2010. Dieta ry refer ence aracelis es for calci um and D. Jacqueline connors [place]: The Natio nal [facility] . 2. Beverley hernandez MF, Javier tracey [place], Manhaz off-F errar i GOLD, et al. Evalu ation , treat ment, and preve ntion of vitam in D defic iency : an Endoc rine Socie ty clini dasia pract ice guide line. JCEM. 2010; 96(0) :1911 -30. Not Available [facility] ([facility]) [address] [facility], [place], [address], 11/10/2024 06:08:06 11/10/19 25 11/10/2024 CBC, PLATE LET, NO DIFFE RENTI AL WBC 5.8 x10e3 /uL 3.4-10 .8 normal Not Available [facility] ([facility]) [address] [facility], [place], [address], 11/10/2024 06:08:07 11/10/1911/10/2024 CBC, PLATE LET, NO DIFFE RENTI AL RBC 6.83 x10e6 /uL 4.14-5 .80 above high normal Not Available [facility] ([facility]) [address] [facility], [place], [address], 11/10/2024 06:08:07 11/10/19 25 11/10/2024 CBC, PLATE LET, NO DIFFE RENTI AL hemoglobin 18.9 g/dL 13.0-1 7.7 above high normal Not Available [facility] ([facility]) [address] [facility], [place], [address], 11/10/2024 06:08:07 11/10/1911/10/2024 CBC, PLATE LET, NO DIFFE RENTI AL hematocrit 60.4 % 37.5-5 1.0 above high normal Not Available [facility] ([facility]) [address] [facility], [place], [address], 11/10/2024 06:08:07 11/10/1911/10/2024 CBC, PLATE LET, NO DIFFE RENTI AL MCV 88 fL 79-97 normal Not Available [facility] ([facility]) [address] [facility], [place], [address], 11/10/2024 06:08:07 11/10/19 25 11/10/2024 CBC, PLATE LET, NO DIFFE RENTI AL MCH 27.7 pg 26.6-3 3.0 normal Not Available [facility] ([facility]) [address] [place], [address], 11/10/2024 06:08:07 11/10/19 25 11/10/2024 CBC, PLATE LET, NO DIFFE RENTI AL MCHC 31.3 g/dL 31.5-3 5.7 below low normal Not Available [facility] ([facility]) [address] [place], [address], 11/10/2024 06:08:07 11/10/19 25 11/10/2024 CBC, PLATE LET, NO DIFFE RENTI AL RDW 16.8 % 11.6-1 5.4 above high normal Not Available [facility] ([facility]) [address] [place], [address], 11/10/2024 06:08:07 11/10/19 25 11/10/2024 CBC, PLATE LET, NO DIFFE RENTI AL platelets 287 x10e3 /uL 150-45 0 normal Not Available [facility] (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) [address] [place], [address], 11/10/2024 06:08:07 11/10/19 25 11/10/2024 COMP. METAB OLIC PANEL (14) glucose 88 mg/dL 70-99 normal Not Available [facility] ([facility]) [address] [place], [address], 11/10/2024 08:08:19 11/10/19 25 11/10/2024 COMP. METAB OLIC PANEL (14) BUN 22 mg/dL 8-27 normal Not Available [facility] ([facility]) [address] [facility] [place], [address], 11/10/2024 08:08:19 11/10/19 25 11/10/2024 COMP. METAB OLIC PANEL (14) creatinine 0.91 mg/dL 0.76-1 .27 normal Not Available [facility] ([facility]) [address] [facility] [place], [address], 11/10/2024 08:08:19 11/10/19 25 11/10/2024 COMP. METAB OLIC PANEL (14) eGFR 90 mL/mi n/1.7 3 >59 normal Not Available [facility] ([facility]) [address] [facility] [place], [address], 11/10/2024 08:08:19 11/10/19 25 11/10/2024 COMP. METAB OLIC PANEL (14) BUN/creatini ne ratio 24 10-24 normal Not Available [facility] ([facility]) [address] [facility] [place], [address], 11/10/2024 08:08:19 11/10/19 25 11/10/2024 COMP. METAB OLIC PANEL (14) sodium 140 mmol/ L 134-14 4 normal Not Available [facility] ([facility]) [address] [facility] [place], [address], 11/10/2024 08:08:19 11/10/19 25 11/10/2024 COMP. METAB OLIC PANEL (14) potassium 4.7 mmol/ L 3.5-5. 2 normal Not Available [facility] ([facility]) [address] [facility] [place], [address], 11/10/2024 08:08:19 11/10/19 25 11/10/2024 COMP. METAB OLIC PANEL (14) chloride 105 mmol/ L 96-106 normal Not Available [facility] ([facility]) [address] [place], [address], 11/10/2024 08:08:19 11/10/19 25 11/10/2024 COMP. METAB OLIC PANEL (14) carbon dioxide, total 20 mmol/ L 20-29 normal Not Available [facility] ([facility] [address] [facility] [place], [address], 11/10/2024 08:08:19 11/10/19 25 11/10/2024 COMP. METAB OLIC PANEL (14) calcium 9.2 mg/dL 8.6-10 .2 normal Not Available [facility] ([facility]) [address] [facility] [place], [address], 11/10/2024 08:08:19 11/10/19 25 11/10/2024 COMP. METAB OLIC PANEL (14) protein, total 6.5 g/dL 6.0-8. 5 normal Not Available [facility] ([facility]) [address] [facility] [place], [address], 11/10/2024 08:08:19 11/10/19 25 11/10/2024 COMP. METAB OLIC PANEL (14) albumin 4.3 g/dL 3.8-4. 8 normal Not Available [facility] ([facility]) [address] [facility] [place], [address], 11/10/2024 08:08:19 11/10/19 25 11/10/2024 COMP. METAB OLIC PANEL (14) globulin, total 2.2 g/dL 1.5-4. 5 Not Available [facility] ([facility]) [address] [facility] [place], [address], 11/10/2024 08:08:19 11/10/19 25 11/10/2024 COMP. METAB OLIC PANEL (14) bilirubin, total 0.8 mg/dL 0.0-1. 2 normal Not Available [facility] ([facility]) [address] [facility] [place], [address], 11/10/2024 08:08:19 11/10/19 25 11/10/2024 COMP. METAB OLIC PANEL (14) alkaline phosphatase 74 IU/L 44-121 normal Not Available [facility] ([facility]) [address] [facility], [place], [address], 11/10/2024 08:08:19 11/10/19 25 11/10/2024 COMP. METAB OLIC PANEL (14) AST (SGOT) 34 IU/L 0-40 normal Not Available [facility] ([facility]) [address] [facility] [place], [address], 11/10/2024 08:08:19 11/10/19 25 11/10/2024 COMP. METAB OLIC PANEL (14) ALT (SGPT) 32 IU/L 0-44 normal Not Available [facility] ([facility]) [address] [facility], [place], [address], 11/10/2024 08:08:19 11/10/19 25 11/10/2024 LIPID PANEL cholesterol, total 109 mg/dL 100-19 9 normal Not Available [facility] ([facility]) [address] [facility], [place], [address], 11/10/2024 08:08:20 11/10/19 25 11/10/2024 LIPID PANEL triglyceride s 72 mg/dL 0-149 normal Not Available [facility] ([facility]) [address] [facility], [place], [address], 11/10/2024 08:08:20 11/10/19 25 11/10/2024 LIPID PANEL HDL cholesterol 42 mg/dL >39 normal Not Available [facility] ([facility]) [address] [facility], [place], [address], 11/10/2024 08:08:20 11/10/19 25 11/10/2024 LIPID PANEL VLDL cholesterol dasia 15 mg/dL 5-40 Not Available [facility] ([facility]) [address] [facility] [place], [address], 11/10/2024 08:08:20 11/10/19 25 11/10/2024 LIPID PANEL LDL chol calc ([facility]) 52 mg/dL 0-99 Not Available 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) [address] [facility], [place], [address], 11/10/2024 08:08:20 11/10/19 25 11/10/2024 CK, TOTAL creatine kinase,total 122 U/L 41-331 normal Not Available [facility] ([facility]) [address] [place], [address], 11/10/2024 08:08:21 11/10/19 25 11/09/2024 HEMOG LOBIN A1C hemoglobin A1C 5.6 % 4.8-5. 6 normal Predi abete s: 5.7 - 6.4 Diabe kavita: >6.4 Glyce jaime contr ol for adult s with diabe kavita: <7.0 Not Available [facility] ([facility]) [address] [place], [address], 11/10/2024 08:08:22 11/11/19 25 11/11/2024 CBC WITH DIFFE RENTI AL/PL ATELE T WBC 6.7 x10e3 /uL 3.4-10 .8 normal Not Available [facility] ([facility]) [address] [place], [address], 11/16/2024 10:06:16 11/11/19 25 11/11/2024 CBC WITH DIFFE RENTI AL/PL ATELE T RBC 6.41 x10e6 /uL 4.14-5 .80 above high normal Not Available [facility] ([facility]) [address] [place], [address], 11/16/2024 10:06:16 11/11/19 25 11/11/2024 CBC WITH DIFFE RENTI AL/PL ATELE T hemoglobin 18.3 g/dL 13.0-1 7.7 above high normal Not Available [facility] ([facility]) [address] [place], [address], 11/16/2024 10:06:16 11/11/19 25 11/11/2024 CBC WITH DIFFE RENTI AL/PL ATELE T hematocrit 56.8 % 37.5-5 1.0 above high normal Not Available [facility] ([facility]) [address] [place], [address], 11/16/2024 10:06:16 11/11/19 25 11/11/2024 CBC WITH DIFFE RENTI AL/PL ATELE T MCV 89 fL 79-97 normal Not Available [facility] ([facility]) [address] [place], [address], 11/16/2024 10:06:16 11/11/19 25 11/11/2024 CBC WITH DIFFE RENTI AL/PL ATELE T MCH 28.5 pg 26.6-3 3.0 normal Not Available [facility] ([facility]) [address] [place], [address], 11/16/2024 10:06:16 11/11/19 25 11/11/2024 CBC WITH DIFFE RENTI AL/PL ATELE T MCHC 32.2 g/dL 31.5-3 5.7 normal Not Available [facility] ([facility]) [address] [place], [address], 11/16/2024 10:06:16 11/11/19 25 11/11/2024 CBC WITH DIFFE RENTI AL/PL ATELE T RDW 14.9 % 11.6-1 5.4 Not Available [facility] ([facility]) [address] [facility], [place], [address], 11/16/2024 10:06:16 11/11/19 25 11/11/2024 CBC WITH DIFFE RENTI AL/PL ATELE T platelets 302 x10e3 /uL 150-45 0 normal Not Available [facility] ([facility]) [address] [facility], [place], [address], 11/16/2024 10:06:16 11/11/19 25 11/11/2024 CBC WITH DIFFE RENTI AL/PL ATELE T neutrophils 67 % not estab. normal Not Available [facility] ([facility]) [address] [facility], [place], [address], 11/16/2024 10:06:16 11/11/19 25 11/11/2024 CBC WITH DIFFE RENTI AL/PL ATELE T lymphs 21 % not estab. normal Not Available [facility] ([facility]) [address] [facility], [place], [address], 11/16/2024 10:06:16 11/11/19 25 11/11/2024 CBC WITH DIFFE RENTI AL/PL ATELE T monocytes 9 % not estab. normal Not Available [facility] ([facility]) [address] [facility], [place], [address], 11/16/2024 10:06:16 11/11/19 25 11/11/2024 CBC WITH DIFFE RENTI AL/PL ATELE T eos 2 % not estab. normal Not Available [facility] ([facility]) [address] [facility], [place], [address], 11/16/2024 10:06:16 11/11/19 25 11/11/2024 CBC WITH DIFFE RENTI AL/PL ATELE T basos 1 % not estab. normal Not Available [facility] (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) [address] [facility], [place], [address], 11/16/2024 10:06:16 11/11/19 25 11/11/2024 CBC WITH DIFFE RENTI AL/PL ATELE T neutrophils (absolute) 4.6 x10e3 /uL 1.4-7. 0 normal Not Available [facility] ([facility]) [address] [place], [address], 11/16/2024 10:06:16 11/11/19 25 11/11/2024 CBC WITH DIFFE RENTI AL/PL ATELE T lymphs (absolute) 1.4 x10e3 /uL 0.7-3. 1 normal Not Available [facility] ([facility]) [address] [place], [address], 11/16/2024 10:06:16 11/11/19 25 11/11/2024 CBC WITH DIFFE RENTI AL/PL ATELE T monocytes(ab solute) 0.6 x10e3 /uL 0.1-0. 9 normal Not Available [facility] ([facility]) [address] [place], [address], 11/16/2024 10:06:16 11/11/19 25 11/11/2024 CBC WITH DIFFE RENTI AL/PL ATELE T eos (absolute) 0.1 x10e3 /uL 0.0-0. 4 normal Not Available [facility] ([facility]) [address] [place], [address], 11/16/2024 10:06:16 11/11/19 25 11/11/2024 CBC WITH DIFFE RENTI AL/PL ATELE T baso (absolute) 0.1 x10e3 /uL 0.0-0. 2 normal Not Available [facility] ([facility]) [address] [facility], [place], [address], 11/16/2024 10:06:16 11/11/19 25 11/11/2024 CBC WITH DIFFE RENTI AL/PL ATELE T immature granulocytes 0 % not estab. Not Available [facility] ([facility]) [address] [facility], [place], [address], 11/16/2024 10:06:16 11/11/19 25 11/11/2024 CBC WITH DIFFE RENTI AL/PL ATELE T immature grans (abs) 0.0 x10e3 /uL 0.0-0. 1 Not Available [facility] (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 A point mutat ion withi n exon 14 of the JAK2 gene ([id number]) encod ing a valin e to pheny lalan ine subst ituti on at posit ion 617 of the JAK2 prote in (V617 F) has been ident ified in most patie nts with polyc ythem ia vera, and in about half of those with eithe r essen tial throm bocyt hemia or idiop athic myelo fibro sis. The V617F has also been detec liat, altho ugh infre quent ly, in other myelo id disor ders such as chron ic myelo monoc ytic leuke jameel and chron ic neutr ophil ic lueke jameel. V617F is an acqui red mutat ion that alter s a highl y conse rved valin e prese nt in the negat bryan regul atory JH2 domai n of the JAK2 prote in and is predi cted to dysre gulat e kinas e activ ity. Metho dolog y: Total genom ic DNA was extra cted and subje cted to TaqMa n real- time PCR ampli ficat ion/d etect ion. Two ampli ficat ion produ cts per sampl e were monit ored by real- time PCR using prime rs/pr obes speci fic to JAK2 wild type (WT) and JAK2 mutan t V617F . The ABI79 00 Absol [place] Quant itati on softw are will jamie re the patie nt speci men valus e to the stand damaris curve s and gener ate perce nt value s for wild type and mutan t type. In vitro studi es have indic ated that this assay has an thiago tical sensi tivit y of 1%. Refer ences : Omid hancock EJ, Marques FORMAN, Amee CANALES, et al. Acqui red mutat ion of the tyros ine kinas e JAK2 in human myelo proli ferat bryan disor ders. Ted t. 2004Jul 27 ; 365(3 543): 1054- 1061. Torito Ghosh, Ravin V, Le Coued ic MADDISON. A uniqu e clona l JAK2 mutat ion leadi ng to const ituti ve signa ling cause s polyc ythae jameel vera. Carly e. 2004Sep 05; 434(5 773): 1142- 114. Brian ariza R, Saravanan figueroa F, Antonella , et al. A gain- of-fu nctio n mutat ion of JAK2 in myelo proli ferat bryan disor ders. N Engl J Med. 2005 Apr 28; 352(1 7):17 79-17 90. Not Available [facility] ([facility]) [address] [facility], [place], [address], 11/16/2024 10:06:17 11/11/1911/16/2024 JAK2 MUTAT ION THIAGO SIS, QUAL jak2 v617f mutation detection Commen t abnormal Resul t: POSIT BRYAN for the detec tion of the V617F mutat ion. Inter preta tion: The assay detec liat the prese nce of a G to T nucle otide barber e encod ing the V617F mutat ion withi n JAK2. Inter preta tion of this resul t catrachito d be made in the ammon xt of other clini dasia, morph ologi c, and cytog eneti c findi ngs. Not Available [facility] ([facility]) [address] [facility], [place], [address], 11/16/2024 10:06:17 11/11/19 25 11/16/2024 JAK2 MUTAT ION THIAGO SIS, QUAL director review: Nazario parra Techn ical Crellin nent perfo rmed at [facility] Carmencita méndez al Crellin nent perfo rmed by: Beverly Vaughn, PhD, [facility] Dire tor, [facility]P YWYUD [address] [place] [address] [phone] This test was devel oped and its perfo rmanc e venkata cteri stics deter mined by [employer] . It has not been clear ed or appro yair by the Food and Drug Admin istra tion. Not Available [facility] ([facility]) [address] [facility], [place], [address], 11/16/2024 10:06:17 11/11/19 25 11/11/2024 ERYTH ROPOI ETIN (EPO) , SERUM erythropoiet in 0.6 mIU/m L 2.6-18 .5 below low normal Beckm an Coult er UniCe l DxI 800 Immun oassa y Syste m Value s [place] with diffe rent assay metho ds or kits canno t be used inter barber courtney . Resul ts canno t be inter prete d as absol [place] evide nce of the prese nce or absen ce of aime merida se. Not Available [facility] ([facility]) [address] [facility], [place], [address], 11/16/2024 10:06:17 11/11/19 25 11/11/2024 MARVIN TIN ferritin 26 NG/mL 30-400 below low normal Not Available [facility] ([facility]) [address] [facility], [place], [address], 11/16/2024 10:06:18 11/11/1911/11/2024 RETIC ULOCY TE COUNT reticulocyte count 1.4 % 0.6-2. 6 Not Available [facility] ([facility]) [address] [facility], [place], [address], 11/16/2024 10:06:19 01/11/2001/10/2025 XR, chest , 2 view Chest 2 Views Fronta l and Lat Reason : cough / COMPAR RENESTO: 2023 FINDIN GS: LINES AND TUBES: None. LUNGS AND PLEURA : Clear lungs. Normal pulmon anh vascul arity. No pleura l effusi on. No pneumo thorax . HEART, MEDIAS TINUM AND ALEX: Heart is normal in size. Aorta is tortuo us and partia lly calcif ied. BONES AND SOFT TISSUE S: No acute abnorm ality. IMPRES RANDALL: No eviden ce of acute abnorm ality. WSN: [id number] Orderi ng Physic alfonso: Nav Nicole Dictat ed By: Ruslan Olea MD Dictat ed Date/T destniee: 3:28 pm Review ed By: Ruslan Olea MD Signed By: Ruslan Olea MD Signed Date/T destinee: 3:28 pm Transc ribed By: SONIYA Transc ribed Date/T destinee: 3:28 pm Patien t Class: [facility] [address], [place], [address], 02/06/2025 13:05:42 02/02/2001/27/2025 PFT, compl ete No observ ation record ed. [facility] [address] [place], [address], 02/23/2025 10:09:25 Result Notes Documentation Provider Name and Address Organization Details Recorded Time Xr, Chest, 2 View : Chest 2 Views Frontal and Lat Reason: cough / COMPARISON: 03/23/2024 FINDINGS: LINES AND TUBES: None. LUNGS AND PLEURA: Clear lungs. Normal pulmonary vascularity. No pleural effusion. No pneumothorax. HEART, MEDIASTINUM AND ALEX: Heart is normal in size. Aorta is tortuous and partially calcified. BONES AND SOFT TISSUES: No acute abnormality. IMPRESSION: No evidence of acute abnormality. WSN: [id number] Ordering Physician: Lucretia Nicole Dictated By: Steve Olea MD Dictated Date/Time: 01/10/25 3:28 pm Reviewed By: Steve Olea MD Signed By: Steve Olea MD Signed Date/Time: 01/10/25 3:28 pm Transcribed By: SONIYA Transcribed Date/Time: 01/10/25 3:28 pm Patient Class: Outpatient Lucretia Nicole PA-C [address] [facility], [place], [address], [facility] 02/06/2025 13:05:42 Problems Name Problem SNOMED Code Status Onset Date Resolution Date Notes Provider Name and Address Organization Details Recorded Time Cough 48500490 Completed 12/01/2016 Lucía velasquez [facility] 7 10:02:12 Shoulder joint pain 713518694 Completed 12/01/2016 Lucía velasquez [facility] 7 10:02:46 Foot pain 01439969 Completed 12/01/2016 Lucía velasquez, [facility] 7 10:02:42 Allergic rhinitis 79105093 Active Not Available [facility] 1 16:53:00 Unintent ional weight loss 822512513 Completed 01/13/2024 Lucretia Nicole PA-C [address] [facility] [address] [address], [place], [address] , [facility] 4 17:27:09 Hyperlip idemia 40303298 Active Not Available [facility] 1 16:53:00 Suspecte d COVID-19 717240050 Completed 10/24/2020 Removal Reason: Problem added by user [email or web address] from the COVID-19 watch flag Isi Ladd eva [facility] 1 08:38:17 Elevated level of transami nase and lactic acid dehydrog enase 829676516 Completed 201112/19/2013 RECORDED 04/07/20 12 11:24AM BY CLAY MILLS MA, ANNOTATI ON/ADDEN DUM Not Available [facility] 4 05:14:08 Elevated level of transami nase and lactic acid dehydrog enase 605093800 Completed 201111/22/2013 RECORDED 04/07/20 12 11:24AM BY CLAY MILLS MA, ANNOTATI ON/ADDEN DUM Not Available [facility] 4 13:30:55 Patient status finding [id number] Completed 201212/19/2013 RECORDED 08/03/19 13 8:58AM BY CLAY MILLS MA, ANNOTATI ON/ADDEN DUM Lucía velasquez, [facility] 7 10:02:22 Contusio n of chest [id number] Completed 201212/19/2013 IMPRESSI ON: CONTUSIO N VS FRACTURE . DISCUSSE D RISK/RAUL EFIT OF CXR. WILL DEFER CXR FOR NOW. SINCE HAS A PROLONGE D COUGH AND THIS INJURY PUTS HIM AT RISK FOR PNEUMONI A WILL HAVE HIM TAKE AN ABX. F/U IF PAIN NOT IMPROVIN G AND IF NEEDS FURTHER PAIN CONTROL. DISCUSSE D SIDE EFFECTS OF OPIATES. CAUTION DRIVING, CAREFUL FOR FALLS, FIBER SUPPLEME NT IF GETS CONSTIPA LIAT, ETC. PT UNDERSTA NDS.; RECORDED 08/03/19 13 8:58AM BY CLAY MILLS MA, ANNOTATI ON/ADDEN DUM Not Available [facility] 4 05:14:08 Patient status finding [id number] Completed 201211/22/2013 RECORDED 08/03/19 13 8:58AM BY CLAY MILLS MA, ANNOTATI ON/ADDEN DUM Lucía velasquez, [facility] 7 10:02:22 Contusio n of chest [id number] Completed 201211/22/2013 IMPRESSI ON: CONTUSIO N VS FRACTURE . DISCUSSE D RISK/RAUL EFIT OF CXR. WILL DEFER CXR FOR NOW. SINCE HAS A PROLONGE D COUGH AND THIS INJURY PUTS HIM AT RISK FOR PNEUMONI A WILL HAVE HIM TAKE AN ABX. F/U IF PAIN NOT IMPROVIN G AND IF NEEDS FURTHER PAIN CONTROL. DISCUSSE D SIDE EFFECTS OF OPIATES. CAUTION DRIVING, CAREFUL FOR FALLS, FIBER SUPPLEME NT IF GETS CONSTIPA LIAT, ETC. PT UNDERSTA NDS.; RECORDED 08/03/19 13 8:58AM BY CLAY MILLS MA, ANNOTATI ON/ADDEN DUM Not Available [facility] 4 13:30:56 Benign neoplasm of colon [id number] Completed 201212/19/2013 RECORDED 09/10/19 13 2:58PM BY CHARU CASE MA, ANNOTATI ON/ADDEN DUM Not Available [facility] 4 05:14:08 Cough [id number] Completed 201212/19/2013 RECORDED 09/10/19 13 2:58PM BY CHARU CASE MA, ANNOTATI ON/ADDEN DUM Lucía velasquez, [facility] 7 10:02:12 Chronic rhinitis 60358107 Completed 201212/19/2013 RECORDED 09/10/19 13 2:58PM BY CHARU CASE MA, ANNOTATI ON/ADDEN DUM Not Available [facility] 4 05:14:08 Benign neoplasm of colon 55270543 Completed 201211/22/2013 RECORDED 09/10/19 13 2:58PM BY CHARU CASE MA, ANNOTATI ON/ADDEN DUM Not Available [facility] 4 13:30:55 Cough 91072571 Completed 201211/22/2013 RECORDED 09/10/19 13 2:58PM BY CHARU CASE MA, ANNOTATI ON/ADDEN DUM Lucía velasquez [facility] 7 10:02:12 Chronic rhinitis 79987151 Completed 201211/22/2013 RECORDED 09/10/19 13 2:58PM BY CHARU CASE MA, ANNOTATI ON/ADDEN DUM Not Available [facility] 4 13:30:56 Influenz a vaccine needed [id number] 06 Completed 201212/19/2013 RECORDED 01/21/20 13 8:42AM BY IGNACIA MELGOZA MA, OFFICE VISIT Not Available [facility] 4 05:14:08 Influenz a vaccine needed [id number] 06 Completed 201211/22/2013 RECORDED 01/21/20 13 8:42AM BY IGNACIA MELGOZA MA, OFFICE VISIT Not Available [facility] 4 13:30:55 Adult health examinat ion Completed 201312/19/2013 RECORDED 09/22/19 14 11:20AM BY CLAY MILLS MA, ANNOTATI ON/ADDEN DUM Not Available [facility] 4 05:14:08 Screenin g for malignan t neoplasm of colon Completed 201312/19/2013 RECORDED 09/22/19 14 11:20AM BY CLAY MILLS MA, ANNOTATI ON/ADDEN DUM Not Available [facility] 4 05:14:08 Laborato ry procedur e performe d [id number] Completed 201312/19/2013 RECORDED 09/22/19 14 11:20AM BY CLAY MILLS MA, ANNOTATI ON/ADDEN DUM Not Available [facility] 4 05:14:08 Adult health examinat ion Completed 201311/22/2013 RECORDED 09/22/19 14 11:20AM BY CLAY MILLS MA, ANNOTATI ON/ADDEN DUM Not Available [facility] 4 13:30:54 Screenin g for malignan t neoplasm of colon Completed 201311/22/2013 RECORDED 09/22/19 14 11:20AM BY CLAY MILLS MA, ANNOTATI ON/ADDEN DUM Not Available [facility] 4 13:30:55 Laborato ry procedur e performe d 158344115 Completed 201311/22/2013 RECORDED 09/22/19 14 11:20AM BY CLAY MILLS MA, ANNOTATI ON/ADDEN DUM Not Available [facility] 4 13:30:56 Follow-u p encounte r Completed 201312/19/2013 RECORDED 09/24/19 14 10:56AM BY SAHARA GONZALEZ I, ANNOTATI ON/ADDEN DUM Not Available [facility] 4 05:14:08 Coronary atherosc lerosis 181919141 Active 2013 Not Available [facility] 1 16:53:00 Follow-u p encounte r Completed 201311/22/2013 RECORDED 09/24/19 14 10:56AM BY SAHARA GONZALEZ I ANNOTATI ON/ADDEN DUM Not Available [facility] 4 13:30:55 Impotenc e of organic origin Active 2013 Not Available [facility] 1 16:53:00 [facility] hyperten randall 86227837 Active 2013 Not Available [facility] 1 16:53:00 Gastroes ophageal reflux disease 880976635 Completed 201302/06/2025 Lucretia Nicole PA-C [address] [facility] [address] [address], [place], [address] , [facility] 5 13:07:46 Pure hypercho lesterol emia 615748229 Active 2013 Not Available [facility] 16:53:00 Patient status finding [id number] Completed 201312/01/2016 RECORDED 09/24/19 14 10:56AM BY SAHARA GONZALEZ I, OFFICE VISIT Lucía velasquez, [facility] 7 10:02:22 Obstruct bryan sleep apnea syndrome 72772718 Active 2013 Not Available [facility] 1 16:53:00 Atrial fibrilla tion 00332418 Active 2013 Not Available [facility] 16:53:00 Follicul itis 10417069 Active 2017 Not Available [facility] 1 16:53:00 Family history of cancer of colon 543535896 Active 2017 Not Available [facility] 1 16:53:00 Cough variant asthma 162816421 Active 2017 Not Available [facility] 1 16:52:59 Benign prostati c hyperpla nissa without outflow obstruct ion 569010455 Active 2019 Not Available [facility] 1 16:53:00 Pain of left shoulder joint 95781829085 345139 Active 2019 Not Available [facility] 1 16:53:00 Seasonal allergic rhinitis 720755921 Active 2021 Lucretia Nicole PA-C [address], [place], [address] , [facility] 2 10:15:35 Right lateral elbow tendinop athy 94396104895 9107 Active 2021 Lucretia Nicole PA-C [address], [place], [address] , [facility] 2 10:15:32 Right inguinal hernia 200754584 Active 2022 Lucretia Nicole PA-C [address], [place], [address] , [facility] 3 17:13:39 Cervical radiculo shubham 58209213 Active 2022 Lucretia Nicole PA-C [address], [place], [address] , [facility] 3 13:00:06 Primary erectile dysfunct ion 837088721 Active 2022 Lucretia Nicole PA-C [address] [facility] [address] [address], [place], [address] , [facility] 3 19:25:33 COVID-19 787006860 Completed 202309/16/2023 Ignacia lyn MA [facility], [facility] 4 09:46:28 Skin lesion 24956363 Active 2023 Lucretia Nicole PA-C [address] [address] [address] [facility] [address], [place], [address] , [facility] 4 10:35:30 Epidermo id cyst of skin of back 181617440 Active 2024 Lucretia Nicole PA-C [address] [address] [address] [facility] [address], [place], [address] , [facility] 5 10:04:09 Erythroc ytosis 857014440 Active 2024 Huy Lepe MD [address] [address], [place], [address] , [facility] 5 14:51:27 Gastroes ophageal reflux disease without esophagi tis 711753272 Active 2024 Lucretia Nicole PA-C [address] [address] [address], [place], [address] , [facility] 5 10:02:12 Problem Notes None recorded. Procedures Surgical History Date Name Laterality Status Provider Name and Address Organization Details Recorded Time 024 Advanced Care Planning completed Isela Rosales LPN [facility] 03/23/2024 09:40:46 024 complete repair of rotator cuff completed Isela Rosales LPN [facility] 03/23/2024 09:47:47 024 cardiac catheterization completed Cielo Valle [facility] 01/13/2024 10:43:03 024 Colonoscopy completed Cielo Valle [facility] 09/24/2023 12:58:34 023 hernia repair completed Cielo Valle [facility] 02/25/2023 08:59:40 023 repair of right inguinal hernia completed Isela Rsoales LPN [facility] 03/16/2023 14:39:16 020 Six-Item Cognitive Test completed Linda Langley [facility] 01/30/2020 10:54:35 014 fluoroscopy guided cardiac ablation with contrast completed Ignacia gaines MA [facility] 04/22/2018 08:51:14 014 Endoscopic us exam esoph completed Lorie Shanks [facility] 04/26/2018 11:44:00 001 Angioplasty completed Ignacia gaines MA [facility] 04/22/2018 08:37:36 Imaging Results None recorded. Procedure Notes None recorded. Medical Equipment None Reported. Allergies No known drug allergies Medications Name Sig Start Date Stop Date Status Note LastModified by Organization Details LastModified Time hydralazi ne hydrochlo ride 25 mg tabs 11/20 completed Not Available Not Available Not Available ipratropi um bromide 0.03 % soln 11/20 completed Not Available Not Available Not Available metoprolo l succinate er 25 mg tb24 11/20 completed Not Available Not Available Not Available nitroglyc matthew 0.4 mg subl 11/20 completed Not Available Not Available Not Available rosuvasta tin calcium 10 mg tabs 11/20 completed Not Available Not Available Not Available losartan potassium 50 mg tabs 11/20 completed Not Available Not Available Not Available famotidin e 20 mg tabs 11/20 completed Not Available Not Available Not Available prevdnt 5000 pst 1.1-5% 11/20 completed Not Available Not Available Not Available prednison e 20 mg tabs 11/20 completed Not Available Not Available Not Available asmanex hfa 100 mcg/act aero 11/20 completed Not Available Not Available Not Available eliquis 5 mg tabs 11/20 completed Not Available Not Available Not Available losartan 50 mg tablet TAKE 1 TABLET DAILY 03/15 completed Not Available Not Available Not Available cyclobenz aprine 10 mg tablet 08/14 completed Not Available Not Available Not Available Saline Nasal Mist 0.65 % spray aerosol Take 2 sprays 4 times a day by nasal route for 30 days. 08/14 completed PRN Not Available Not Available Not Available atorvasta tin 20 mg tablet Take 1 tablet every day by oral route as directed for 90 days. 04/25 completed Not Available Not Available Not Available ketoconaz ole 2 % shampoo PLEASE SEE ATTACHED FOR DETAILED DIRECTIO NS active Not Available Not Available No t Available cetirizin e 10 mg tablet Take 1 tablet every day by oral route. 04/10 completed Not Available Not Available Not Available benzonata te 200 mg capsule Take 1 capsule 3 times a day by oral route as needed for 10 days. 12/31 completed Not Available Not Available Not Available Atacand 8 mg tablet 1 tab po qd 04/16 completed Not Available Not Available Not Available prednison e 20 mg tablet TAKE 1 TABLET BY MOUTH EVERY DAY FOR 7 DAYS 11/20 completed Not Available Not Available Not Available niacin ER 500 mg tablet,ex tended release 24 hr DAILY 2013 active RECORDED 09/22/19 14 3:01PM BY LYDIA BOYER MD, REFILL REQUEST; 90DAY Not Available Not Available Not Available Zithromax Z-Bart 250 mg tablet QD 08/07 completed RECORDED 09/07/19 13 7:08AM BY LYDIA BOYER MD, MEDICATI ON AUTO-AMY CTIVATIO N; Not Available Not Available Not Available valsartan 80 mg tablet TAKE 1 TABLET DAILY active Not Available Not Available No t Available hydralazi ne 25 mg tablet TAKE 1 TABLET DAILY DIRECTED active Not Available Not Available No t Available amlodipin e 2.5 mg tablet TAKE 1 TABLET DAILY 2024 active qhs Not Available Not Available Not Avai lable amlodipin e 5 mg tablet active Not Available Not Available Not Available aspirin 81 mg tablet,de layed release Take 1 tablet every day by oral route for 90 days. 01/29 completed Not Available Not Available Not Available acetamino phen 500 mg tablet TAKE 2 TABLETS BY MOUTH 3 TIMES A DAY 12/14 completed Not Available Not Available Not Available Flomax 0.4 mg capsule,e xtended release Take 1 capsule every 24 hours by oral route. 04/20 completed Not Available Not Available Not Available amoxicill in 500 mg tablet TAKE 1 TABLET BY MOUTH THREE TIMES A DAY 03/03 completed Not Available Not Available Not Available oxycodone -acetamin ophen 5 mg-325 mg tablet TAKE 1 TAB BY MOUTH EVERY 4-6 HOURS NEEDED 03/16 completed Not Available Not Available Not Available amoxicill in 875 mg tablet TWO TIMES DAILY 08/12 completed RECORDED 09/07/19 13 7:08AM BY LYDIA BOYER MD, MEDICATI ON AUTO-AMY CTIVATIO N; Not Available Not Available Not Available famotidin e 20 mg tablet TAKE 2 TABLETS DAILY 10/29 completed Not Available Not Available Not Available tamsulosi n 0.4 mg capsule 05/02 completed Not Available Not Available Not Available benzonata te 100 mg capsule Take 1 capsule 3 times a day by oral route as needed for 10 days. 09/20 completed Not Available Not Available Not Available cephalexi n 500 mg capsule TAKE 1 CAPSULE BY MOUTH EVERY 12 HOURS FOR 7 DAYS 03/23 completed Not Available Not Available Not Available esomepraz ole magnesium 40 mg capsule,d elayed release Take 1 capsule every other day by oral route for 30 days. 05/02 completed Not Available Not Available Not Available ranitidin e 150 mg tablet Take 1 tablet twice a day by oral route as directed for 90 days. 04/25 completed Not Available Not Available Not Available nitroglyc matthew 0.4 mg sublingua l tablet DISSOLVE 1 TABLET UNDER THE TONGUE NEEDED FOR CHEST DISCOMFO RT. IF TAKING 3 TABLETS IN A ROW, CALL 911 2024 active Not Available Not Available Not Avai lable mupirocin calcium 2 % topical cream APPLY A SMALL AMOUNT TO THE AFFECTED AREA BY TOPICAL ROUTE 3 TIMES PER DAY FOR 10 DAYS 09/09 completed Not Available Not Available Not Available docusate sodium 100 mg capsule TAKE 1 CAPSULE BY MOUTH EVERY DAY NEEDED 03/07 completed Not Available Not Available Not Available omeprazol e 20 mg capsule,d elayed release TAKE 1 CAPSULE DAILY 2024 active mwf 3 times/wk Not Available Not Available Not Available monteluka st 10 mg tablet TAKE 1 TABLET BY MOUTH EVERY DAY 02/06 completed Not Available Not Available Not Available codeine 10 mg-guaife nesin 100 mg/5 mL oral liquid Take 10 mL every day by oral route at bedtime for 10 days. 10/29 completed Not Available Not Available Not Available hydralazi ne 50 mg tablet TAKE 1 TABLET TWICE A DAY 2024 active Not Available Not Available Not Avai lable mupirocin 2 % topical ointment APPLY SPARINGL Y TO AFFECTED AREA TWICE A DAY 03/23 completed Not Available Not Available Not Available gabapenti n 100 mg capsule Take 1 capsule 3 times a day by oral route for 30 days. 03/16 completed Not Available Not Available Not Available metoprolo l succinate ER 25 mg tablet,ex tended release 24 hr TAKE 1 TABLET DAILY 2024 active Not Available Not Available Not Avai lable lorazepam 1 mg tablet TAKE 1 TABLET 1 HOUR PRIOR TO MRI SCAN, MAY REPEAT ONCE 03/16 completed Not Available Not Available Not Available scopolami ne 1 mg over 3 days transderm al patch Apply 1 patch every 72 hours by transder mal route for 7 days. 10/24 completed Not Available Not Available Not Available losartan 100 mg tablet TAKE 1 TABLET DAILY 2024 active Not Available Not Available Not Avai lable ipratropi um bromide 21 mcg (0.03 %) nasal spray SPRAY 2 SPRAYS 3 TIMES A DAY BY INTRANAS AL ROUTE NEEDED active Not Available Not Available No t Available finasteri de 5 mg tablet TAKE 1 TABLET DAILY FOR BENIGN PROSTATI C HYPERPLA NISSA 2024 active Not Available Not Available Not Avai lable diazepam 5 mg tablet TAKE 1 TABLET APPROXIM ATELY 1 HOUR PRIOR TO YOU MRI. MAY REPEAT X1 NEEDED FOR EFFECT. 01/12 completed Not Available Not Available Not Available oxycodone 5 mg tablet TAKE 1 TABLET BY MOUTH THREE TIMES A DAY NEEDED FOR 7 DAYS 03/07 completed Not Available Not Available Not Available ezetimibe 10 mg tablet TAKE 1 TABLET DAILY 2024 active Not Available Not Available Not Avai lable coenzyme Q10 100 mg capsule Take 1 capsule every day by oral route. active Not Available Not Available No t Available cyclobenz aprine 5 mg tablet Take 1 tablet as needed by oral route at bedtime. 02/27 completed Not Available Not Available Not Available rosuvasta tin 10 mg tablet Take 1 tablet every day by oral route in the evening for 90 days. 06/11 completed Not Available Not Available Not Available rosuvasta tin 20 mg tablet TAKE 1 TABLET DAILY 2024 active Not Available Not Available Not Avai lable Levitra 10 mg tablet Take 1 tablet twice a day by oral route for 4 days. 05/02 completed Not Available Not Available Not Available Cialis 5 mg tablet Take 1 tablet every day by oral route for 4 days. 01/12 completed Not Available Not Available Not Available Cialis 10 mg tablet 05/02 completed Not Available Not Available Not Available Mucinex DM 30 mg-600 mg tablet,ex tended release 12 hr Take 1 tablet every day by oral route in the morning for 10 days. 10/29 completed Not Available Not Available Not Available Flovent HFA 220 mcg/actua tion aerosol inhaler INHALE 2 PUFFS DIRECTED TWICE A DAY 08/14 completed PRN Not Available Not Available Not Available Asmanex Twisthale r 220 mcg/actua tion(30 doses) breath activated inhalr 04/20 completed Not Available Not Available Not Available Asmanex Twisthale r 220 mcg/actua tion(120 doses) breath activated inhlr Inhale 1 puff twice a day by inhalati on route for 30 days. 04/22 completed Not Available Not Available Not Available Pepcid 11/20 completed Not Available Not Available Not Available Fish Oil 1 po qd active Not Available Not Sarah ilable Not Available Zantac 05/02 completed Not Available Not Available Not Available Centrum Silver DAILY 12/22 completed RECORDED 12/23/19 12 4:27PM BY IGNACIA MELGOZA MA, HISTORIC AL SUMMARY; Not Available Not Available Not Available multivita min active Not Available Not Available Not Available PreviDent 5000 Sensitive 1.1 %-5 % dental paste USE TWICE A DAY DIRECTED 11/20 completed Not Available Not Available Not Available ProAir HFA 90 mcg/actua tion aerosol inhaler Inhale by inhalati on route for 25 days. 03/03 completed PRN Not Available Not Available Not Available cyclobenz aprine 7.5 mg tablet Take 1 tablet every day by oral route. 09/09 completed Not Available Not Available Not Available diclofena c 1 % topical gel 11/20 completed Not Available Not Available Not Available Asmanex Twisthale r 110 mcg/actua tion(30 doses) breath activated inhalr Inhale 1 puff every day by inhalati on route. active Not Available Not Available No t Available GaviLyte- N 420 gram oral solution 04/22 completed Not Available Not Available Not Available GaviLyte- G 236 gram-22.7 4 gram-6.74 gram-5.86 gram oral solution DRINK 240 ML BY MOUTH EVERY 10 MINUTES 09/15 completed Not Available Not Available Not Available Prevnar 13 (PF) 0.5 mL intramusc ular syringe inject 0.5 millilit er intramus cularly 11/20 completed Not Available Not Available Not Available Xarelto 20 mg tablet active Not Available Not Available Not Available metoprolo l succ 25 mg-hydroc hlorothia zide 12.5 mg tablet,ex t.rel 24 hr active Not Available Not Available Not Available Dymista 137 mcg-50 mcg/spray nasal spray [place] 1 spray every day by nasal route for 30 days. 09/21 /2020 completed Not Available Not Available Not Available Combivent Respimat 20 mcg-100 mcg/actua tion solution for inhalatio n 04/20 completed Not Available Not Available Not Available PreviDent 5000 Booster Plus 1.1 % dental paste Take 1 applicat ion every day by dental route for 30 days. 11/20 completed Not Available Not Available Not Available Eliquis 5 mg tablet TAKE 1 TABLET TWICE A DAY 2024 active Not Available Not Available Not Avai lable Asmanex HFA 100 mcg/actua tion aerosol inhaler Inhale 2 puffs twice a day by inhalati on route for 30 days. 08/14 completed PRN Not Available Not Available Not Available Allergy Relief (fluticas one) 50 mcg/actua tion nasal spray,sreekanth pension [place] 1 spray every day by intranas al route as needed. active Not Available Not Available No t Available Fluzone High-Dose 2019-20 (PF) 180 mcg/0.5 mL intramusc ular syringe inject 0.5 millilit ers intramus cularly 11/20 completed Not Available Not Available Not Available Flowflex COVID-19 Antigen Home Test kit USE DIRCTED 12/09 completed Not Available Not Available Not Available Paxlovid 300 mg (150 mg x 2)-100 mg tablets in a dose pack TAKE 3 TABLETS TWICE A DAY BY MOUTH DIRECTED FOR 5 DAYS. 03/03 completed Not Available Not Available Not Available Vitals Date Recorded Body mass index (BMI) Body weight Heart rate Oxygen saturation Oxygen saturation in Arterial blood by Pulse oximetry Body temperature Systolic And Diastolic Provider Name and Address Organization Details Last Updated DateTime 5 23.8 kg/m2 80158.3 6 g 52 /min 98 % 98 % 98.3 [degF] 120/69 mm[Hg] Isela Rosales LPN [facility] 09:23:41 Date Recorded Body height Provider Name an d Address Organization Details Last Updated DateTime 10/10/2024 182.88 cm Ignacia Macario MA [facility] 10/10/2024 09:19:32 Date Recorded Body height Body mass index (BMI) Body weight Oxygen saturation Oxygen saturation in Arterial blood by Pulse oximetry Heart rate Body temperature Systolic And Diastolic Provider Name and Address Organization Details Last Updated DateTime 5 182.88 cm 23.8 kg/m2 18959.3 6 g 97 % 97 % 55 /min 98.2 [degF] 129/72 mm[Hg] Kayli Flores MA [facility] 5 14:22:42 Date Recorded Body height Body mass index (BMI) Body weight Heart rate Oxygen saturation Oxygen saturation in Arterial blood by Pulse oximetry Body temperature Systolic And Diastolic Provider Name and Address Organization Details Last Updated DateTime 5 182.88 cm 23.5 kg/m2 88644.4 8 g 52 /min 95 % 95 % 97.8 [degF] 138/72 mm[Hg] Rylee mohr MA [facility] 5 12:53:02 Date Recorded Body height Body mass index (BMI) Body weight Heart rate Oxygen saturation Oxygen saturation in Arterial blood by Pulse oximetry Body temperature Systolic And Diastolic Provider Name and Address Organization Details Last Updated DateTime 5 182.88 cm 23.9 kg/m2 50396.2 6 g 62 /min 96 % 96 % 98 [degF] 143/76 mm[Hg] Rylee mohr MA [facility] 5 09:15:54 Date Recorded Body height Body mass index (BMI) Body weight Heart rate Oxygen saturation Oxygen saturation in Arterial blood by Pulse oximetry Body temperature Systolic And Diastolic Provider Name and Address Organization Details Last Updated DateTime 5 182.88 cm 23.7 kg/m2 95771.6 6 g 56 /min 96 % 96 % 97.7 [degF] 106/67 mm[Hg] Leticia Blackman MA [facility] 5 12:53:24 Social History Question Answer Notes LastModified by Organizat ion Details LastModified Time Tobacco Smoking Status Never Smoker Charu velasquez [facility] 01/18/2014 07:58:09 Do You Have An Advance Directive? No Information not available 03/03/2022 Is Blood Transfusion Acceptable In An Emergency? Yes Information not available 01/26/2015 What Is Your Level Of Caffeine Consumption? Occasional 1 Cup Of Coffee A Day Information not available 01/26/2015 How Much Tobacco Do You Chew? None Information not available 01/26/2015 In The 14 Days Before Symptom Onset, Have You Had Close Contact With A Laboratory-confi rmed COVID-19 While That Case Was Ill? No Information not available 03/03/2022 In The 14 Days Before Symptom Onset, Have You Had Close Contact With A Person Who Is Under Investigation For COVID-19 While That Person Was Ill? No Information not available 03/03/2022 Have You Been To An Area Known To Be High Risk For COVID-19? No Information not available 03/03/2022 What Type Of Diet Are You Following? CARDIAC Low Sodium Information not available 04/22/2018 Which Illicit Or Recreational Drugs Have You Used? None Information not available 04/22/2018 Have There Been Any Changes To Your Family Or Social Situation? No Information not available 03/03/2022 Are There Any Guns Present In Your Home? Yes Information not available 03/03/2022 Live Alone Or With Others? With Others (Luz [place]) Information not available 03/03/2022 Do You Take Precautions To Prevent Distracted Driving? Yes Information not available 01/26/2015 How Often Do You Need To Have Someone Help You When You Read Instructions, Pamphlets, Or Other Written Material From Your Doctor Or Pharmacy? Never Information not available 01/26/2015 Have You Served In The ? No Information not available 05/02/2016 Have You Or Anyone In Your Household Had Any Of The Following Symptoms In The Last 14 Days: Sore Throat, Cough, Chills, Body Aches For Unknown Reasons, Shortness Of Breath For Unknown Reasons, Loss Of Smell, Loss Of Taste, Fever At Or Greater Than 100 Degrees Fahrenheit? Yes Information not available 03/15/2020 Are You Or Anyone In Your Household A Health Care Provider Or Emergency Responder? No [email or web address] Information not available 11/21/2019 To The Best Of Your Knowledge Have You Been In Close Proximity To Any Individual Who Tested Positive For COVID-19? No [email or web address] Information not available 11/21/2019 *AWV ONLY* Are You Presently Prescribed Opioid Medication By PCP Or Specialist? If YES -Provider Assess The Benefit For Other, Non-opioid Pain Therapies Instead, Even If The Patient Does Not Have OUD But Is Possibly At Risk. No Information not available 02/27/2021 Have You Recently Traveled To A COVID-19 High Risk Area Or Gathering In The Last 10 Days? No Information not available 02/27/2021 What Was The Date Of Your Most Recent Tobacco Screening? 03/23/2024 Information not available 03/23/2024 How Many Children Do You Have? 2 Zaki Information not available 04/22/2018 Do You Use Protection During Sex? No Information not available 03/03/2022 Do You Use Your Seat Belt Or Car Seat Routinely? Yes Information not available 09/09/2021 Seat Belts Used Routinely Yes Information not available 03/03/2022 Are You Sexually Active? Yes Information not available 01/26/2015 Smoke Alarm In Home Yes Information not available 03/03/2022 Do You Have Smoke And Carbon Monoxide Detectors In Your Home? Yes Information not available 02/27/2021 At What Age Did You Start Smoking Tobacco? 0 Information not available 04/22/2018 Are You Passively Exposed To Smoke? No Information not available 05/02/2016 How Much Tobacco Do You Smoke? No Information not available 01/26/2015 Do You Use Sunscreen Routinely? Yes Information not available 01/26/2015 How Many Years Have You Smoked Tobacco? 0 Information not available 04/22/2018 Sex: Unknown Functional Status Question Answer Note LastModified by Organizat ion Details LastModified Time Do you use any illicit or recreational drugs? No Information not available 03/03/2022 Do you or have you ever used any other forms of tobacco or nicotine? No Information not available 03/03/2022 What is your level of alcohol consumption? Occasional Information not available 01/30/2020 Do you or have you ever used smokeless tobacco? Never used smokeless tobacco [email or web address] Information not available 11/21/2019 Are you currently employed? No [email or web address] Information not available 01/30/2020 Are you able to walk independently without assistance or assistive devices? YESWOREST Information not available 03/03/2022 Are you able to care for yourself independently? 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 Never used electronic cigarettes Information not available 03/03/2022 What is your exercise level? Moderate [email or web address] Information not available 01/30/2020 Mental Status None recorded. Family History Relationship Description Onset Age of this Age Resolved Age Notes LastModified by Organization Details LastModified Time Father Diabetes mellitus [email or web address] Not available 2014 10:02:12 Father Coronary arterioscler osis [email or web address] Not available 03/23 09:44:58 Father Malignant neoplasm of colon [email or web address] Not available 2014 10:02:12 Father Myocardial infarction [email or web address] Not available 03/11 09:44:58 Father Cerebrovascu lar accident 82 [email or web address] Not available 10:02:12 Father Heart disease 55 82 [email or web address] Not available 2014 09:56:13 Brother Cerebrovascu lar accident brothe r had trauma tic DVT/an d [place] xical emboli to brain/ small stroke in his 45/ brothe r now 58 [email or web address] Not available 04/20/2017 10:06:07 Mother Dementia 92 95 Not availab le 03/23/2024 09:44:58 Medical History Condition Response Coronary Artery Disease Y Other Y Gout N Kidney Stones N Blood Diseases N Hyperthyroidism N Breast Cancer N Depression N COPD N Lung Disease N Hypothyroidism N Defects or Inherited Disease N Anesthesia Complications N Headaches/Migraines N Anxiety Disorder N Varicose Veins N Obesity N Vision or Eye Problems N Arthritis N Head Injury/Concussion N Polyps N Infertility N Congenital Anomalies N Acid Reflux (GERD) Y Cancer N Stroke N ADHD N Endometriosis N High Cholesterol Y Liver Disease N Fibromyalgia N Kidney Disease N Heart Problems Y Ear or Hearing Problems N Hospitalizations N Thyroid Problems N GI Problems N Acne N Skin Problems N Eating Disorder N Anemia N Constipation N Bladder Problems Y Mental Illness N Ovarian Cancer N Diabetes N Blood Transfusions N Seizures/Epilepsy N Tuberculosis N AIDS/HIV N Congestive Heart Failure (CHF) N Eczema N Diverticulitis N Abuse/Domestic Violence N Asthma N Allergies N Reflux/GERD Y Hepatitis N Pulmonary Embolism N Hypertension Y Chicken Pox N Autism Spectrum Disorder (ASD) N Osteoporosis N Immunizations Vaccine Type Date Status Note Provider Name and Address Organization Details Recorded Time influenza, unspecified formulation 016 completed Not Available [facility] 03/16/2023 13:49:23 influenza, unspecified formulation 017 completed Not Available [facility] 03/16/2023 13:49:23 Influenza, split virus, quadrivalent, preservative 018 completed Not Available [facility] 03/16/2023 13:49:23 Influenza, high-dose, trivalent, PF 019 completed TAVIA So [facility] 04/16/2021 14:07:20 Pneumococcal conjugate PCV 13 019 completed TAVIA So [facility] 04/16/2021 14:07:20 COVID-19, mRNA, LNP-S, PF, 30 mcg/0.3 mL dose 021 completed TAVIA So [facility] 04/16/2021 14:07:20 COVID-19, mRNA, LNP-S, PF, 30 mcg/0.3 mL dose 021 completed TAVIA So [facility] 04/16/2021 14:07:20 COVID-19, mRNA, LNP-S, PF, 30 mcg/0.3 mL dose 021 completed TAVIA So [facility] 04/16/2021 14:07:20 Influenza, high-dose, quadrivalent, PF 021 completed Not Available [facility] 03/16/2023 13:49:23 Influenza, split virus, trivalent, PF [facility] 14:07:20 Influenza, split virus, quadrivalent, PF 018 [facility] 14:07:20 Influenza, adjuvanted, quadrivalent, PF 021 [facility] 14:07:20 Influenza, split virus, quadrivalent, PF 016 [facility] 14:07:20 Influenza, split virus, trivalent, PF 014 [facility] 03/03/2022 09:26:35 pneumococcal polysaccharide PPV23 021 [facility] 03/03/2022 09:26:35 Influenza, high-dose, quadrivalent, PF 020 [facility] 03/03/2022 09:26:36 COVID-19, mRNA, LNP-S, PF, 30 mcg/0.3 mL dose, jb-sucrose 022 [facility] 03/03/2022 09:26:36 COVID-19, mRNA, LNP-S, bivalent, PF, 30 mcg/0.3 mL dose 022 [facility] 08/14/2022 15:46:22 Influenza, split virus, trivalent, preservative 012 [facility] 03/04/2021 10:15:47 Td (adult), 2 Lf tetanus toxoid, preservative free, adsorbed 000 completed Cathy Faria null, [facility] [place] 03/04/2021 10:15:47 Tdap 011 completed Cathy Faria null, [facility] [place] 03/04/2021 10:15:47 pneumococcal polysaccharide PPV23 002 completed Cathy Faria null, [facility] [place] 03/04/2021 10:15:47 influenza, seasonal, intradermal, preservative free 013 completed Cathy Faria null, [facility] 03/04/2021 10:15:47 Td (adult), 2 Lf tetanus toxoid, preservative free, adsorbed 021 cancelled patient objection Lucretia Nicole PA-C [address] [facility] [facility], [place], [address], [facility] 02/27/2021 10:24:53 Influenza, high-dose, quadrivalent, PF 021 cancelled patient objection Lucretia Nicole PA-C [address] [facility], [place], [address], [facility] 02/27/2021 10:24:53 pneumococcal polysaccharide PPV23 021 cancelled patient objection Lucretia Nicole PA-C [address] [facility], [place], [address], [facility] 02/27/2021 10:24:53 Influenza, high-dose, quadrivalent, PF 022 completed Lucretia Nicole PA-C [address], [place], [address], [facility] 03/03/2022 10:28:42 Td (adult), 2 Lf tetanus toxoid, preservative free, adsorbed 023 completed Lucretia Nicole PA-C [address] [facility], [place], [address], [facility] [place] 08/15/2022 15:39:24 Influenza, high-dose, quadrivalent, PF 023 completed Lucretia Nicole PA-C [address] [facility] [address], [place], [address], [facility] 03/17/2023 19:18:52 Influenza, high-dose, trivalent, PF 024 completed Lucretia Nicole PA-C [address] [facility] [address], [place], [address], [facility] 03/23/2024 10:35:43 Influenza, high-dose, trivalent, PF [address] [facility] 02/06/2025 12:54:59 Past Encounters Encounter ID Performer Location Encounter Start Date Encounter Closed Date Diagnosis/Indication Diagnosis SNOMED-CT Code Diagnosis ICD10 Code Diagnosis IMO Codes Diagnosis Note [id number] autoEComm erce [address] [facility] [place] [address] 01/16/2012 00:00:00 [id number] autoEComm erce [address] [facility] [place] [address] 04/07/2012 00:00:00 [id number] autoEComm erce [address] [facility] [place] [address] 08/02/2012 00:00:00 [id number] autoEComm erce [address] [facility] [place] [address] 01/20/2013 00:00:00 [id number] autoEComm erce [address] [facility] [place] [address] 09/23/2013 00:00:00 [id number] LILI Ma Main Office [address] [facility] [address] [place] [address] 01/18/2014 07:49:07 01/18/2014 09:35:46 Cough 84489091 Gastroesop hageal reflux disease 865352584 [id number] LILI Mckenzie Main Office [address] [facility] [address] [place] [address] 01/24/2014 09:08:15 01/24/2014 10:25:10 Needs influenza immunization 957713575 Essential hypertension 71230558 Pure hypercholesterolemia 153083794 Adult [facility] th examination 922562571 risk/benef it prostate cancer screening discussed and pt defers Coronary atherosclerosis 028771670 stable he sees cardio Gastroesop hageal reflux disease 117310080 worse since the MELANI he had before cardiac ablation. burping. coughing could also be related to this. [id number] Lydia hood MD Main Office [address] [facility] [address] [place] [address] 08/10/2014 10:28:45 08/10/2014 11:10:19 Shoulder joint pain 998469527 Atrial fibrillation 34453064 reviewed past hx w/ pt. It seems appropriat e for pt to stop eliquis and he will d/w cardio/ [id number] Lydia hood MD Main Office [address] [address] [place] [address] 08/31/2014 14:11:30 08/31/2014 15:01:38 Foot pain 56219278 Allergic rhinitis 48707990 [id number] Lydia hood MD Main Office [address] [address] 01/26/2015 09:39:54 01/26/2015 10:44:10 Adult health examination 205579205 Coronary atherosclerosis 281818681 Unintentio nal weight loss 977249910 I suspect pt needs to eat more hi-protein , hi quality calories but we need to do labs and pt will see GI soon Hyperlipidemia 15016130 Cough 40912669 [id number] Lydia hood MD Main Office [address] [facility] [address] [place] [address] 05/02/2016 12:29:30 05/02/2016 13:57:24 Adult health examination 185543573 Z00.00 Atrial fibrillation 4943 6004 I48.91 reviewed past hx w/ pt. It seems appropriat e for pt to stop eliquis and he will d/w cardio/ Coronary atherosclerosis 986652851 I25.84 Essential hypertension 76554015 I10 Fatigue 96878826 R53.83 pt has rare fatigue. he has had wt loss due to reduced caloric intake but if this continues he will ask GI for any input [id number] Lydia hood MD Main Office [address] [facility] [address] [place] [address] 04/20/2017 09:12:06 04/20/2017 10:20:38 Adult health examination 507294026 Z00.00 Atrial fibrillation 4943 6004 I48.91 pt will continue anticoagul ation Folliculitis 13847899 L7 3.9 [id number] Lucretia Nicole PA-C Main Office [address] [facility] [address] [place] [address] 04/22/2018 08:31:47 04/22/2018 09:46:24 Adult health examination 047057075 Z00.00 Essential hypertension 16873014 I10 stable, cont med as dir Pure hypercholesterolemia 884601498 E78.00 Hepatitis C screening 41 0761163 Z11.59 Cough variant asthma 409 512494 J45.991 has seen pulm in past, pending see a new pulm next week 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 cough variant asthma vs other - htbn is under control, cough likely d/t pnd - also has mild erosion of L nares - will get ENT eval Varicella vaccination 68 369056 Z23 Family his tory of cancer of colon 878292444 Z80.0 next colon is 4.19 Folliculitis 27461958 L7 3.9 cont f/u c derm Impaired f asting glycemia 939139158 R73.01 [id number] Lucretia Nicole PA-C Main Office [address] [facility] [address] [facility] [address] 04/29/2018 14:55:22 04/29/2018 16:20:23 Acute pharyngitis 862912190 J02.9 ? d/t loosening of chronic nasal congestion c nasal saline spray - breathing easier thru nares - but now has ST -- likely d/t pnd - rec add prn SW gargles / consider chlorasept ic spray ac meal prn [id number] Huy Lepe MD Main Office [address] [facility] [address] [place] [address] 09/08/2018 08:49:01 09/08/2018 10:03:58 Foot pain 04799600 M79.671 check xray to r/o marquez's neuroma, cont to wear sneakers/d r eli's gel insert, and get podiatry eval Pain of le ft shoulder joint 8307879281 8383371 M25.512 h/o trina injxn c neos yrs ago, had trauma few months ago - re-aggrava liat - will send back to ortho [id number] Huy Lepe MD Main Office [address] [facility] [address] [place] [address] 04/25/2019 13:47:10 04/25/2019 15:06:24 Adult health examination 081256295 Z00.00 Essential hypertension 33259925 I10 stable, cont med as dir Pure hypercholesterolemia 938984465 E78.00 nl lipids c card in 6.19, but card recently changed to crestor d/t myalgias from lipitor Cough variant asthma 409 296023 J45.991 has seen pulm in past, pending see a new pulm later this wk Impotence of organic origin 737078788 N52.9 cont f/u c uro Atrial fibrillation 4943 6004 I48.91 cont f/u c card & EP Obstructiv e sleep apnea syndrome 08045609 G47.33 no tolerate cpap - advised pt to d/w his new pulm later this wk - ? central sleep apnea? Gastroesop hageal reflux disease 211100238 K21.9 neg egd for mohr's, cont h2b Allergic rhinitis 866966 04 J30.9 cont meds as dir chronic pnd/allerg ies, fol by pulm - ? cough variant asthma vs other - htbn is under control, cough likely d/t pnd - also has mild erosion of L nares - will get ENT eval Varicella vaccination 68 775411 Z23 Family his tory of cancer of colon 384117241 Z80.0 next colon is 4.24 Folliculitis 58386982 L7 3.9 cont f/u c derm Impaired f asting glycemia 364845340 R73.01 Foot pain 07051740 M79.6 71 cont f/u c podiatry - ? marquez's neuroma Pain of le ft shoulder joint 0471722066 2169595 M25.512 h/o trina injxn c neos yrs ago, had trauma few months ago - re-aggrava liat - cont f/u c ortho Vitamin D deficiency 347 18443 E55.9 rec 1000 iu supp qd Benign pro static hyperplasia without outflow obstruction 712215122 N40.0 cont f/u c uro - uro checks psa [id number] Marisol allison MD Main Office [address] [address] 11/21/2019 12:43:01 11/21/2019 14:27:18 Muscle pain 95028629 M79.10 check labs today, call if any worsening or changing, Possible muscle injury kayaking. No exertional sx Neuropathy 002307129 G62 .9 ? neuropathi c pain, trial of gabapentin at night; start with 100 mg, can titrate up to 300md if needed, use sparingly in the day due to side effect of fatigue. Call with update in a few days Pain of mu ltiple joints 41301319 M25.50 [id number] Huy Lepe MD Main Office [address] [address] 01/30/2020 10:20:24 01/30/2020 12:01:58 Adult health examination 609664458 Z00.00 Snoring 32637383 R06.83 pending see sleep specialist next month Atrial fibrillation 4943 6004 I48.91 cont f/u c card & EP Essential hypertension 16071787 I10 mildly elevated here and trending that way at home - will increase arb, cont f/u c card - ? if card would prefer to increase hydralazin e instead?? Hyperlipidemia 06078747 E78.5 Impaired f asting glycemia 073281692 R73.01 Cough variant asthma 409 117310 J45.991 stable, cont f/u c pulm Gastroesop hageal reflux disease 510323580 K21.9 neg egd for mohr's, cont h2b Allergic rhinitis 664188 04 J30.9 cont meds as dir, seen by ent Family his tory of cancer of colon 625193641 Z80.0 next colon is 4.24 Benign pro static hyperplasia without outflow obstruction 899619326 N40.0 cont f/u c uro - uro checks psa Pain of le ft shoulder joint 3254905606 3077135 M25.512 h/o trina injxn c neos yrs ago, had trauma few months ago -- cont f/u c ortho Influenza vaccine needed 1416738202 106 Z23 [id number] [address]uy [address] MD [facility] [address] [facility] [address] [place] [address] 03/15/2020 09:32:20 03/15/2020 12:45:03 Cough 48200553 R05 ~ chronic cough - most likely d/t allergy/as thma connection - see below Cough variant asthma 409 933276 J45.991 rec stop zyrtec, rather trial of montelukas t, cont inhalers as dir by pulm Gastroesop hageal reflux disease 574390680 K21.9 neg egd for mohr's, cont h2b as dir [id number] Huy Lepe MD [facility] [address] [facility] [address] [place] [address] 04/10/2020 11:35:30 04/10/2020 15:28:19 Chronic cough 82094714 R05 x 3 months. last seen by ent 4.20 (rev note) - no sig help c benzonatat e capsules, montelukas t, Asmanex inhaler, fluticason e nasal spray, and ipratropiu m nasal spray -- advised ppi bid last week, but he didn't start yet - see below Gastroesop hageal reflux disease 512355514 K21.9 see above about ppi bid - will get gi eval - fol by Dr. Davey already sent in omeprazole to pharmacy - will re-try bid - but likely they will only cover once/day bc no h/o an ulcer - if so then buy otc omeprazole as well to take the product twice daily Obstructiv e sleep apnea syndrome 17994070 G47.33 no tolerate cpap in past, just had repeat sleep study - cont f/u c sleep med Cough 58472461 R05 ~ chronic cough - will also r/o pna and covid19 - pt will call to see if he can get cxr at [facility] - if not, then will go to [facility] 283298854 Z71 .9 Health advice, education or counseling done for COVID 19 Exposure t o viral disease 3088927810 13907 Z03.818 [id number] Lucretia GALVEZC Main Office [address] [place] [address] 10/29/2020 08:55:18 10/29/2020 09:54:25 Strain of abdominal muscle 745371844 S39.011A L oblique m strain - rec hep, prn moist heat, could alt aleve/tyl, prn m relaxer as well Obstructiv e sleep apnea syndrome 58350215 G47.33 no tolerate cpap in past - cont f/u c sleep med - trial c oral appliance / repeat sleep study [id number] Huy Lepe MD Main Office [address] [place] [address] 02/27/2021 09:17:46 02/27/2021 10:39:16 Adult health examination 262453546 Z00.00 Varicella vaccination 68 874437 Z23 Requires a tetanus booster 375122643 Z23 Influenza vaccine needed 3965374811 106 Z23 Essential hypertension 83805801 I10 bp stable, cont meds as dir Pure hypercholesterolemia 115963878 E78.00 cont med as per card ~ nl lipids 7.21 Atrial fibrillation 4943 6004 I48.91 stable s/p ablation - cont f/u c card & EP prn Benign pro static hyperplasia without outflow obstruction 746967804 N40.0 cont f/u c uro - uro checks psa Cough variant asthma 409 803184 J45.991 resolved Gastroesop hageal reflux disease 169193301 K21.9 stable Obstructiv e sleep apnea syndrome 37338640 G47.33 no tolerate cpap in past - cont f/u c sleep med - cont c oral appliance Impaired f asting glycemia 443968138 R73.01 Administra tion of pneumococcal vaccine 95092085 Z23 Eruption 768831626 R21 on L breast areolar tissue x ~ 2 wks - looks like a few 'alonzo s' - no use of otc products, no gynecomast ia or pus dc noted - no evidence of abscess ---- more so sensitivit y as per pt - trial of bactroban cream - if no sig improvemen t then call us [id number] Marisol Millan-Marybel allison MD Main Office [address] [place] [address] 03/27/2021 08:46:26 03/27/2021 09:12:10 Administration of pneumococcal vaccine 03509841 Z23 [id number] Huy Lepe MD [facility] [address] [place] [address], [place] [address] 04/16/2021 08:20:18 04/16/2021 15:08:11 Chest pain 00525000 R07.9 x 1, has not returned - seen at ER - neg w/u including ekg and cardiac enzymes - ER doc must have suspected atelectasi s on cxr rather than pna since pt did not have a fever, normal wbc and no cough or sob - reviewed this in detail c pt - he has not experience d any of those sxs over the past 2-3 wks so the clinical suspicion of having missed pna on that cxr report is exceptiona lly low - most likely was atelectasi s which has resolved since he is asymptomat ic - no need for repeat cxr also - pt apparently had normal stress echo on . as per card --- cont f/u c card [id number] [facility] [address] [address] 06/11/2021 08:03:34 06/11/2021 11:17:09 Strain of calf muscle 485914760 S86.111A R calf strain last wk, already better as per pt - reviewed how else to stretch - add knee bend to wall stretch to get soleus better, do stair stretch, consider moist heat ac/p stretch for attracting blood flow, cont prn tyl, encouraged to go biking and power walking ac go back to pickleball , use ice p vigorous exercise [id number] Huy Lepe MD Main Office [address] [facility] [address] [place] [address] 09/09/2021 13:16:09 09/09/2021 14:34:53 Strain of muscle of right groin region 0024124290 4825512 S76.011A ~ 50% better but not resolved - no evidence of inguinal hernia at this time - rec cont hep, moist heat/ hot tub, and add aleve 1-2 tabs 1-2x/day prn Essential hypertension 23585744 I10 bp stable, cont meds as dir, check bmp Right late ral elbow tendinopathy 1591311397 54210 M77.11 mild/mod - rec TE support c activity, wrist splint o/n [id number] Huy Lepe MD [facility] [address] [place] [address] 10/01/2021 08:19:01 10/01/2021 14:05:01 Seasonal allergic rhinitis 290116567 J30.2 encouraged pt to resume flonase qd - use nasal saline prior and prn as well Sore throat 584258069 J0 2.9 has tested negative to covid x several times -- cont supportive measures prn - SW gargles, tea c honey, lozenges, chlorasept ic see above - advised pt if ST persists into next week despite all of above - then call ENT for re-eval - likely needs laryngosco py Counseling 024151756 Z71 .9 Health advice, education or counseling done for COVID 19 [id number] Campbell Currie MD [facility] [address] [facility] [address] [place] [address] 11/09/2021 08:56:58 11/13/2021 08:39:09 COVID-19 333815123 U07.1 Tylenol OTC, not to exceed package insert for pain or fever q6h advised prn.Throat Lozenges otc prn for sore throatsalt water gargle,zee quate hydration enforcedsa line sprayshumi difier use enforced.p axlovid sent, last available kidney function reviewed, advised eua and potential side effects, tessalon 100 tid prn sentAdvise d to half statin elaquis dose with bleeding precaution . Advised to monitor BP and hold amlodipine if low. - return to normal meds after tx.also advised can use a teaspoon honey for cough advised to be mindful due to dm.isolati on precaution discussedp recaution advised if any difficulty breathing or tmax 103 > go to nearest ED [id number] Huy Lepe MD Main Office [address] [facility] [address] [place] [address] 03/03/2022 09:17:33 03/03/2022 10:27:38 Adult health examination 957709675 Z00.00 had labs 9.20 - nl cbc, lipids, cmp x elevated glucose encouraged pt to get covid and tetanus boosters going to [place] 12.06.01 - 3.15.23 -- will check labs next spring Influenza vaccine needed 4838236130 106 Z23 History of SARS-CoV-2 29 24993106 62999952 Z86.16 7.22 - recovered Essential hypertension 44742965 I10 bp stable but low normal - asymptomat ic, cont meds as dir, check bmp --- if develops orthostasi s then advised pt to call card to back off medication Impaired f asting glycemia 344785656 R73.01 Right late ral elbow tendinopathy 7416438465 83671 M77.11 mild/mod - plays pickle ball - rec TE support c activity, wrist splint o/n --- if worse, then consider ortho eval for trina injxn Atrial fibrillation 4943 6004 I48.91 stable s/p ablation - cont f/u c card & EP prn Gastroesop hageal reflux disease 866461283 K21.9 stable Hyperlipidemia 44743995 E78.5 stable, cont med as dir Seasonal a llergic rhinitis 128853003 J30.2 encouraged pt to resume flonase qd - use nasal saline prior and prn as well, consider claritin d/t recent nasal congestion -- but ? if has cold air rhinitis [id number] José Bassett MD Main Office [address] [place] [address] 03/22/2022 10:01:32 03/22/2022 10:55:16 Acute pharyngitis 001920988 J02.9 Congestion of nasal sinus 69152268 R09.81 I recommende d that he take mucinex along with the benzonatat e and to continue testing for COVID if his symptoms persist or if he develops new symptoms. [id number] Huy Lepe MD Main Office [address] [facility] [address] [place] [address] 08/14/2022 14:57:32 08/14/2022 16:23:13 Dysuria 00431303 R30.0 SYMPTOMS: burning with urination? yes frequency? no hematuria? no lower abdominal pain? no symptoms similar to previous UTI? no POSSIBLE CONTRAINDI CATIONS TO TELEPHONE TREATMENT: > 65 years of age? yes fevers? no recent UTI (within 1 month)? no new low back pain? no nausea or vomiting? no ? no history of interstiti al cystitis? no PROVIDER ACTION: Reviewed nursing notes? Recommende d action Antibiotic treatment Epididymitis 96405360 N4 5.1 no evidence of uti - suspect inflammato ry > infectious etiology given normal urine dipstick (u/a & c&s pending) and no new sexual partners - trial c low dose aleve 1 tab 2x/day c food x several days, rtc if no better next wk Essential hypertension 26343038 I10 bp low normal but asymptomat ic ---- discussed c pt - advised to stop the last med that was added - amlodipine hs - to help prevent orthostasi s --- likely d/t intentiona l wt loss (better diet/more ex lately), also rec increase water intake Requires a tetanus booster 546775334 Z23 [id number] Huy Lepe MD Main Office [address] [facility] [address] [place] [address] 12/01/2022 15:43:59 12/02/2022 14:39:41 Right inguinal hernia 355666636 K40.[address] for further eval, and a general surgery eval - meanwhile consider truss - brittnee c playing pickleball , and avoid heavy lifting [id number] Huy Lepe MD [facility] [address] [facility] [address] [place] [address] 12/09/2022 13:26:33 12/09/2022 15:13:26 Right inguinal hernia 422872219 K40.[address] for further eval, and a general surgery eval - meanwhile consider truss - brittnee c playing pickleball , and avoid heavy lifting 8.23 - reviewed CT c pt - seen by general surgeon earlier today, no note to review yet - encouraged sx, agreed to watchful waiting, cont truss Hyperlipidemia 18079383 E78.5 stable, cont med as dir Impaired f asting glycemia 904973039 R73.01 Fatigue 54511191 R53.83 [id number] Huy Lepe MD [facility] [address] [place] [address] 01/06/2023 10:19:56 01/06/2023 12:01:53 Neck pain 05285671 M54.2 seen in ER, neg. w/u, sxs resolved --- sounds like he had a pulled muscle, ? trap - would have suspected radicular component if sxs persisted --- if they return - rec prn tyl, prn alt. ice < moist heat - if worse - call us - to consider neck xray Right inguinal hernia [address] for further eval, and a general surgery eval - meanwhile consider truss - brittnee c playing pickleball , and avoid heavy lifting 8.23 - reviewed CT c pt - seen by general surgeon earlier today, no note to review yet - encouraged sx, agreed to watchful waiting, cont truss 01.06.23 - pain returned p pickleball - pending surgery 01.20.23, just had preop earlier today Hyperlipidemia 28503922 E78.5 stable, cont med as dir check fasting labs before upcoming PE Impaired f asting glycemia 721721502 R73.01 check fasting labs before upcoming PE [id number] Huy Lepe MD Main Office [address] [place] [address] 01/19/2023 11:18:40 01/19/2023 12:43:55 Cervical radiculopathy 70431669 M54.12 seen in ER, neg. w/u, sxs resolved --- sounds like he had a pulled muscle, ? trap - would have suspected radicular component if sxs persisted --- if they return - rec prn tyl, prn alt. ice < moist heat - if worse - call us - to consider neck xray 9.23 - pt had xray thru card last week - will attempt to get card note - found xray report in pvix - trial c gbn and will get pmr eval, also consider warm compress to neck prn, consider tyl or advil prn as well Right inguinal hernia [address] for further eval, and a general surgery eval - meanwhile consider truss - brittnee c playing pickleball , and avoid heavy lifting 8.23 - reviewed CT c pt - seen by general surgeon earlier today, no note to review yet - encouraged sx, agreed to watchful waiting, cont truss 01.06.23 - pain returned p pickleball - pending surgery 01.20.23, just had preop earlier today 9. - see above, encouraged pt to call surgeon's office to re-schedul e sx, but do so at [facility] where pt would be more comfortabl e (not at [facility]) Fatigue 13499533 R53.83 Impaired f asting glycemia 661669035 R73.01 check fasting labs before upcoming PE Unintentio nal weight loss 107885602 R63.4 wt slowly but surely lowering over time, + change in diet (plant based) but less ex lately d/t hernia - check labslast janae/phq normal - [facility] monthcolon oscopy & psa (5.18.23 was 0.5) utd [id number] Huy Lepe MD Main Office [address] [facility] [address] [facility] [place] [address] 03/16/2023 13:47:27 03/16/2023 15:21:05 Adult health examination 383315884 Z00.00 Influenza vaccine needed 1922645186 106 Z23 Right inguinal hernia [address] for further eval, and a general surgery eval - meanwhile consider truss - brittnee c playing pickleball , and avoid heavy lifting 8.23 - reviewed CT c pt - seen by general surgeon earlier today, no note to review yet - encouraged sx, agreed to watchful waiting, cont truss 8.. - pain returned p pickleball - pending surgery 01.20.23, just had preop earlier today 9. - see above, encouraged pt to call surgeon's office to re-schedul e sx, but do so at [facility] where pt would be more comfortabl e (not at [place]) 11. - had sx last month, better Cervical radiculopathy 89514530 M54.12 seen in ER, neg. w/u, sxs resolved --- sounds like he had a pulled muscle, ? trap - would have suspected radicular component if sxs persisted --- if they return - rec prn tyl, prn alt. ice < moist heat - if worse - call us - to consider neck xray 9. - pt had xray thru card last week - will attempt to get card note - found xray report in [facility]vix - trial c gbn and will get pmr eval, also consider warm compress to neck prn, consider tyl or advil prn as well 11. - cont f/u c pmr, just had mri - next f/u tomorrow Atrial fibrillation 4943 6004 I48.91 stable s/p ablation - cont f/u c card & EP prn Benign pro static hyperplasia without outflow obstruction 387431472 N40.0 cont f/u c uro - uro checks psa - was normal a few months Obstructiv e sleep apnea syndrome 72037199 G47.33 no tolerate cpap in past - cont f/u c sleep med - cont c oral appliance . - didn't tolerate oral appliance, encouraged pt to f/u c sleep med and d/w card re: the importance of this, brittnee re: afib Primary er ectile dysfunction 574426724 N52.9 last used a few yrs ago, requests additional - check c card in a few wks if ok to take - pt does not take nitrates so should be okay Family his tory of cancer of colon 011175633 Z80.0 next colon is 4.24 Hyperlipidemia 48330700 E78.5 stable, cont meds as dir cont f/u c card Essential hypertension 80688909 I10 bp low normal but asymptomat ic ---- discussed c pt - advised to stop the last med that was added - amlodipine hs - to help prevent orthostasi s --- likely d/t intentiona l wt loss (better diet/more ex lately), also rec increase water intake 11.23 - bp stable, cont meds as dir, check bmp in a few months [id number] José Bassett MD [facility] [address] [facility] [address] [place] [address] 07/22/2023 12:57:23 07/22/2023 13:41:22 COVID-19 474071283 U07.1 Hydration, rest, if feeling better quarantine x 5 days then mask for 5 days. If not better after 5 days quarantine for full 10 days. Tylenol/ ibuprofen as needed, OTC cough med as needed. Call/ return for worsening sx or concerns.T o ED if any resp distress, severe or worsening sx.he is feeling better, will hold off on paxlovid for now but call/ return for worsening. Cough variant asthma 409 515506 J45.991 has not needed his inhaler. [id number] Huy Lepe MD Main Office [address] [facility] [address] [place] [address] 09/16/2023 09:15:14 09/16/2023 10:31:13 Essential hypertension 29904206 I10 bp low normal but asymptomat ic ---- discussed c pt - advised to stop the last med that was added - amlodipine hs - to help prevent orthostasi s --- likely d/t intentiona l wt loss (better diet/more ex lately), also rec increase water intake 11.23 - bp stable, cont meds as dir, check bmp in a few months 5.24 - bp a little low but asymptomat ic - rec stay well hydrated, cont meds as dir Right inguinal hernia [address] for further eval, and a general surgery eval - meanwhile consider truss - brittnee c playing pickleball , and avoid heavy lifting 8.23 - reviewed CT c pt - seen by general surgeon earlier today, no note to review yet - encouraged sx, agreed to watchful waiting, cont truss 8.29.23 - pain returned p pickleball - pending surgery 01.20.23, just had preop earlier today 9. - see above, encouraged pt to call surgeon's office to re-schedul e sx, but do so at [facility] where pt would be more comfortabl e (not at [place]) 11. - had sx last month, better 5.24 - r groin pain since pulled on 40 lb bag of salt last week - pending see gen sx tomorrowad vised pt of groin stretches Atrial fibrillation 4943 6004 I48.91 stable s/p ablation - cont f/u c card & EP prn 5.24 - stable, cont f/u c card Hyperlipidemia 30351889 E78.5 stable, cont meds as dir, cont f/u c card 5.24 - just recently had lipids - will attempt to get results from card Obstructiv e sleep apnea syndrome 13672889 G47.33 no tolerate cpap in past - cont f/u c sleep med - cont c oral appliance . - didn't tolerate oral appliance, encouraged pt to f/u c sleep med and d/w card re: the importance of this, brittnee re: afib 5.24 - stable, pt states he has mild chetan, and has d/w card Family his tory of cancer of colon 093974120 Z80.0 pending colon 09.24.23 [id number] Huy Lepe MD Main Office [address] [facility] [address] [place] [address] 01/13/2024 12:53:20 01/13/2024 13:58:01 Pre-surgery evaluation 275733079 Z01.818 Partial th ickness rotator cuff tear 249576901 M75.101 Essential hypertension 28752403 I10 bp low normal but asymptomat ic ---- discussed c pt - advised to stop the last med that was added - amlodipine hs - to help prevent orthostasi s --- likely d/t intentiona l wt loss (better diet/more ex lately), also rec increase water intake 11.23 - bp stable, cont meds as dir, check bmp in a few months 5.24 - bp a little low but asymptomat ic - rec stay well hydrated, cont meds as dir 9.24 - bp stable, cont meds as dir Atrial fibrillation 4943 6004 I48.91 stable s/p ablation - cont f/u c card & EP prn 5.24 - stable, cont f/u c card Coronary atherosclerosis 219742699 I25.10 stable, had recent angiograph y c LHC, cont f/u c card Hyperlipidemia 12138153 E78.5 stable, cont meds as dir, cont f/u c card 5.24 - just recently had lipids - will attempt to get results from card Benign pro static hyperplasia without outflow obstruction 467703087 N40.0 cont f/u c uro - uro checks psa [id number] MONTSERRAT BARKSDALE MD Main Office [address] [place] [address] 03/07/2024 13:14:25 03/07/2024 13:48:38 Folliculitis 30691934 L73.9 - worsening and spreading to chest and shoulders- started patient on keflex BID for 7 days and mupirocin BID- return precaution s given [id number] Huy Lepe MD Main Office [address] [facility] [address] [place] [address] 03/23/2024 09:19:38 03/23/2024 10:38:52 Adult health examination 014475070 Z00.00 Advance di rective discussed with patient 549492570 Z71.89 Partial th ickness rotator cuff tear 534904874 M75.101 Essential hypertension 87907828 I10 bp low normal but asymptomat ic ---- discussed c pt - advised to stop the last med that was added - amlodipine hs - to help prevent orthostasi s --- likely d/t intentiona l wt loss (better diet/more ex lately), also rec increase water intake 11.23 - bp stable, cont meds as dir, check bmp in a few months 5.24 - bp a little low but asymptomat ic - rec stay well hydrated, cont meds as dir 9.24 - bp stable, cont meds as dir Atrial fibrillation 4943 6004 I48.91 stable s/p ablation - cont f/u c card & EP prn 11.24 - stable, cont f/u c card Coronary atherosclerosis 123466642 I25.10 stable, had recent angiograph y c LHC, cont f/u c card Hyperlipidemia 77642672 E78.5 stable, cont meds as dir, cont f/u c card 5.24 - just recently had lipids - will attempt to get results from card Benign pro static hyperplasia without outflow obstruction 104299485 N40.0 cont f/u c uro - uro checks psa Folliculitis 86729644 L7 3.9 cont f/u c derm Influenza vaccine needed 8113106113 106 Z23 65 YEARS AND OLDER Gastroesop hageal reflux disease 598357118 K21.9 stable on ppi 2x/wkhas had egd's in past - no history of mohr's Family his tory of cancer of colon 065409588 Z80.0 next colon 5.29 Feeling of lump in throat 037236573 R09.89 consider increase ppi - but first increase saline to help c possible pnd - see below Allergic rhinitis 372247 04 J30.9 cont meds as dir - brittnee saline/kecia nase, seen by ent Cough 47973427 R05.9 rare, dry cough x several weeks (more so throat clearing above) - see above - check cxr to r/o pna (low likelihood ) == most likely d/t above, has had this issue in past a few timesrtc if no sig help c above Impaired f asting glycemia 554862100 R73.01 check fasting labs before upcoming PE Vitamin D deficiency 347 74786 E55.9 rec 1000 iu supp qd Skin lesion 83328567 L98 .9 cont f/u c [place] derm [id number] Huy Lepe MD Main Office [address] [place] [address] 05/05/2024 13:15:41 05/05/2024 14:17:41 Cough 01348895 R05.9 rare, dry cough x several weeks (more so throat clearing above) - see above - check cxr to r/o pna (low likelihood ) == most likely d/t above, has had this issue in past a few timesrtc if no sig help c abovealso, will give prn tessalon Gastroesop hageal reflux disease 776929667 K21.9 stable on ppi 2x/wkhas had egd's in past - no history of mohr's 12.24 - ? above cough d/t gerd - rec take ppi qd until feeling better, then wean off back to qod / 2x/wk baseline Cough variant asthma 409 853772 J45.991 ? this (cold air rhinitis) vs d/t gerd belowusing flonase and ns spray, but clear nasal dc persiststr ial c adding ipra bromide prnpt going to [place] on 05.13.24 - if rhinitis stops, then dx of cold air rhinitis is made - so stop above med [id number] Huy Lepe MD Main Office [address] [facility] [address] [facility] [place] [address] 09/20/2024 09:48:58 09/20/2024 10:46:04 Hyperlipidemia 56821705 E78.5 stable, cont meds as dir, cont f/u c card 5.24 - just recently had lipids - will attempt to get results from card . - recheck lipids c cc: card Essential hypertension 64258188 I10 bp low normal but asymptomat ic ---- discussed c pt - advised to stop the last med that was added - amlodipine hs - to help prevent orthostasi s --- likely d/t intentiona l wt loss (better diet/more ex lately), also rec increase water intake 11.23 - bp stable, cont meds as dir, check bmp in a few months 5.24 - bp a little low but asymptomat ic - rec stay well hydrated, cont meds as dir 5.25 - bp stable, cont meds as dir Seasonal a llergic rhinitis 411840856 J30.2 encouraged pt to resume flonase qd - use nasal saline prior and prn as well, consider claritin d/t recent nasal congestion -- but ? if has cold air rhinitis Cough variant asthma 409 705961 J45.991 ? this (cold air rhinitis) vs d/t gerd belowusing flonase and ns spray, but clear nasal dc persiststr ial c adding ipra bromide prnpt going to [place] on 05.13.24 - if rhinitis stops, then dx of cold air rhinitis is made - so stop above med 5.25 - stable Coronary atherosclerosis 348314556 I25.10 stable, had recent angiograph y c LHC, cont f/u c card q 6 months Atrial fibrillation 9531 6603 I48.91 stable s/p ablation - cont f/u c card & EP prn 5.25 - stable, cont f/u c card Impaired f asting glycemia 720053886 R73.01 551555 check fasting labs before upcoming PE Sea sickness 80008917 T7 5.3XXA [id number] going on an [employer] cruise in 7. - will send in rx for scop patch [id number] Huy Lepe MD Main Office [address] [place] [address] 10/10/2024 09:10:28 10/10/2024 10:03:33 Epidermoid cyst of skin of back 369302069 L72.0 [id number] offered reassuranc e - next f/u c derm 8.25 for CSEcould try triple abx ointment / warm compress prn Sea sickness 67320697 T7 5.3XXA [id number] going on an [employer] cruise in . - will send in rx for scop patch6.25 - initial script denied by ins, eventually approved - will send new rx Anxiety 39878507 F41.8 0476914 rec mindfulnes s, yoga, daivd chi, transcende ntal meditation , relaxation response bookf/u if worse [id number] Huy Lepe MD Main Office [address] [place] [address] 11/10/2024 14:10:48 11/10/2024 14:59:38 Erythrocytosis 909024905 D75.1 68480 Hopefully just a spurious measuremen t potentiall y from lab error or being dehydrated . Will screen for polycythem ia vera gene mutation and if present or H/H remain elevated will consult heme. In meantime good hydration practices advised. Obstructiv e sleep apnea syndrome 48914684 G47.33 Based on sleep study from 2019. Pt is completely asymptomat ic and does not have any signs of CHETAN predisposi tion or symptom impact. [id number] José Bassett MD Main Office [address] [place] [address] 12/14/2024 12:44:47 12/14/2024 13:25:47 Postviral cough 124494380 R05.8 4493438 He gets this after most infections . No role for abx. Will treat with nasal sprays and benzonatat e and he will call in 1 week if it is not improving. 378127 Huy Lepe MD Main Office [address] [facility] [address] [facility] [place] [address] 01/10/2025 09:04:35 01/10/2025 10:04:23 Chronic cough 52049018 R05.3 32103 8.25 - He gets this after most infections . No role for abx. Will treat with nasal sprays and benzonatat e and he will call in 1 week if it is not improving. 01.10.25 - see belowcheck cxr to r/o pna Cough variant asthma 409 713549 J45.991 ? this (cold air rhinitis) vs d/t gerd belowusing flonase and ns spray, but clear nasal dc persiststr ial c adding ipra bromide prnpt going to [place] on 05.13.[place] - if rhinitis stops, then dx of cold air rhinitis is made - so stop above med 5.25 - stable 01.10.25 - wonder if this has returned - see abovetrial c montelukas tcheck pft'swill get pulm eval - last seen by pulm Polycythem ia vera (clinical) 076957022 D45 11559 pending see hem/onc on 02.01.25 Gastroesop hageal reflux disease without esophagitis 036058648 K21.9 816733 stable on ppi 2x/wkhas had egd's in past - no history of mohr's 05.03 - ? above cough d/t gerd - rec take ppi qd until feeling better, then wean off back to qod / 2x/wk baseline 02.02 - stable, cont ppi 3x/wk ([facility]) [id number] Huy Lepe MD Main Office [address] [facility] [address] [facility] [place] [address] 02/06/2025 12:41:03 02/06/2025 13:40:17 Cough variant asthma [id number] J45.991 ? this (cold air rhinitis) vs d/t gerd belowusing flonase and ns spray, but clear nasal dc persiststr ial c adding ipra bromide prnpt going to [place] on 05.13.24 - if rhinitis stops, then dx of cold air rhinitis is made - so stop above med 5.25 - stable 01.10.25 - wonder if this has returned - see abovetrial c amy [place] pft'swill get anais bro - last seen by anais 02.06.25 - nl cxr, pfts, seen by pulm - negative w/ucough better but lingers s/p cold ~ 2 months agolikely has pnd affecting - increase ns spray, cont flonase and ip brom as dir, consider mucinex as well (cannot take sudafed d/t htn - call if develop pur nasal dc - consider abx) Influenza vaccine needed [id number] Z23 65 YEARS AND OLDER Erythrocytosis [id number] D75.1 [id number] pending see hem/onc on 02.01.25 02.06.25 - rev hem/onc note in [facility] - to start phlebotomy q 2 wks at [place] - cont f/u c hem/onc Gastroesop hageal reflux disease without esophagitis [id number] K21.9 [id number] stable on ppi 2x/wkhas had egd's in past - no history of mohr's 05.03 - ? above cough d/t gerd - rec take ppi qd until feeling better, then wean off back to qod / 2x/wk baseline . - stable, cont ppi 3x/wk (mwf) Essential hypertension [id number] I10 bp low normal but asymptomat ic ---- discussed c pt - advised to stop the last med that was added - amlodipine hs - to help prevent orthostasi s --- likely d/t intentiona l wt loss (better diet/more ex lately), also rec increase water intake 11.23 - bp stable, cont meds as dir, check bmp in a few months 5.24 - bp a little low but asymptomat ic - rec stay well hydrated, cont meds as dir 9.25 - bp stable, cont meds as dir Impaired f asting glycemia [id number] R73.01 [id number] check labs before upcoming awv Health Concerns Section Related Observation LastModified by Organization Detai ls LastModified Time None Recorded Concern Status LastModified by Organization Details LastModified Time None Recorded Advance Directives Directive N: Payers Insurance Date Sequence Insurance Name Policy Number Policy Marx Covered Member ID Marx Member ID Guarantor Name 02/25/2025 2 [place] [id number] Pipo Ruff Young [id number] Pipo Vidal 02/06/2025 1 [place] B[place] [facility] Pipo Elzbieta Young [id number] Pipo Vidal 03/16/[address] [facility] [id number] Pipo Ruff Young [id number] Pipo Elzbieta Young 03/16/2023 1 [place]: [facility] Pipo Elzbieta Young [id number] Pipo Elzbieta Young 03/16/2023 1 [employer] [id number] Pipo Ruff Young [id number] Pipo Elzbieta Young 03/16/2023 1 [facility] [id number] Pipo Vidal [id number] Pipo Vidal Notes Date Note Type Note Provider Name and Address Organization Details Recorded Time 10/10/2024 text/html pt has bump on his back, in between shoulder blades, ? ingrown hair or sebaceous cyst/blackhead has had x several wks/monthswife has tried to pop it - very little comes outno f/c, active pus dclast seen by derm several wks ago - next cse in 8.25 Lucretia Nicole PA-C [address] [address], [place], [address], [facility] 10/10/2024 10:08:58 11/10/2024 text/html Had an elevated H/H on recent routine labs work. Measured at 18.9/60.4 with normal values in previous years, since 2015. Has h/o of mild CHETAN which is untreated. Is on DOAC for Afib. Besides mild pruritis pt is completely asymptomatic. All other labs were normal. Pt reports exercising vigorously without limitations yesterday,. may have been slightly dehydrated. No other blood cell lines impacted. Huy Lepe MD [address] [address], [place], [address], [facility] 11/10/2024 15:11:51 12/14/2024 text/html ROS as noted in the HPI He was on an [employer] cruise a few weeks ago and had some mild rhinorrhea at that time. This resolved and he developed a cough which has persisted. He has a h/o allergic rhinitis and PND and just restarted flonase and ipratropium nasal spray a couple of days ago. He denies f/c or sinus pain/pressure. His has similar symptoms. He is a lifetime non smoker. Denies any wheezing. José Bassett MD [address] [address], [place], [address], [facility] 12/14/2024 14:22:23 01/10/2025 text/html ROS as noted in the HPI 8.6.25 - He was on an [employer] cruise a few weeks ago and had some mild rhinorrhea at that time. This resolved and he developed a cough which has persisted. He has a h/o allergic rhinitis and PND and just restarted flonase and ipratropium nasal spray a couple of days ago. He denies f/c or sinus pain/pressure. His has similar symptoms. He is a lifetime non smoker. Denies any wheezing. 9.2.25 - no sig help c ipratropium and benzonatate - cough persistsno htbn - taking ppi 3 days/wk (mwf)no f/c, pur nasal dch/o cough variant asthmalast seen by pulm 2019 Lucretia Nicole PA-C [address] [facility] [address], [place], [address], [facility] 01/10/2025 10:02:45 02/06/2025 text/html ROS as noted in the HPI 8.6.25 - He was on an [employer] cruise a few weeks ago and had some mild rhinorrhea at that time. This resolved and he developed a cough which has persisted. He has a h/o allergic rhinitis and PND and just restarted flonase and ipratropium nasal spray a couple of days ago. He denies f/c or sinus pain/pressure. His has similar symptoms. He is a lifetime non smoker. Denies any wheezing. 01.10.25 - no sig help c ipratropium and benzonatate - cough persistsno htbn - taking ppi 3 days/wk (mwf)no f/c, pur nasal dch/o cough variant asthmalast seen by pulm 201802.06.25 - here for ~1 month f/u visithad nl cxr and pft - seen by pulm earlier today - negative eval, awaiting noterev hem/onc note in pvix - to start phlebotomy q 2 wks at [place] Lucretia Nicole PA-C [address] [address], [place], [address], [facility] 02/06/2025 13:43:05
--- OUTSIDE RECORDS SUMMARY | 2025-03-09 11:31 | XMS_ITS | Data Portability ---
Author Organization TAVIA Abdi [facility], [facility] [place] Address [address] [place] [address] Care Team Providers Care Business Teacher Name Role Phone LUCRETIA NICOLE Referring Provider [phone] LUCRETIA NICOLE Primary Care Provider MENA BARNEY Head Stock Operator Assessment Encounter Date Assessment Date Assessment LastModified by Organization Details LastModified Time 05/02/2024 05/02/2024 Assessment: Bruising down anterior arm to elbow, but starting to return to normal ROM, and feel better, hopefully by next visit return to full ROM, and start strength. Plan: Continue PT @ 2x/wk to decrease pain, increase ROM, optimize mechanics for functional movement, and facilitate independence in ADL's. Possibly start UBE. and T-Band HEP. [email or web address] Not available 05/02/2024 16:52:49 05/09/2024 05/09/2024 Assessment: Near full ROM. Good tolerance to initial light strengthening. Plan: Continue PT @ 2x/wk to decrease pain, increase ROM, optimize mechanics for functional movement, and facilitate independence in ADL's. Possibly start UBE. and T-Band HEP. [email or web address] Not available 05/09/2024 08:26:20 05/12/2024 05/12/2024 Assessment: Near full ROM. Good tolerance to all exercise, patient transferring to PT in [place]. Plan: Continue PT in [place], D/C patient with HEP [email or web address] Not available 05/12/2024 19:12:12 Plan of Treatment Reminders Order Date Submit Date Provider Last Modified By Organization Details Last Modified Time Details Appointments PT FOLLOW-UP 2024 07:30A Yadira Tao, PT Not available Not available Not available PT FOLLOW-UP 2024 09:00A M Julius Tao, PT Not available Not available Not available PT FOLLOW-UP 2024 07:30A M Julius Tao, PT Not available Not available Not available PT FOLLOW-UP 2024 02:00P M Julius Tao, PT Not available Not available Not available PT FOLLOW-UP 2024 10:30A M Julius Tao, PT Not available Not available Not available PT FOLLOW-UP 2024 08:00A M Julius Tao, PT Not available Not available Not available PT FOLLOW-UP 2024 07:30A M Josh Echevarria, [employer] Not available Not available Not available PT FOLLOW-UP 2024 01:00P M Julius Tao, PT Not available Not available Not available PT FOLLOW-UP 2024 08:00A M Julius Tao, PT Not available Not available Not available PT FOLLOW-UP 2024 08:00A M Julius Tao, PT Not available Not available Not available PT FOLLOW-UP 2024 07:30A M Julius Tao, PT Not available Not available Not available Lab None recorded. Referral physical therapist referral - DIAGNOSIS : Right shoulder impingeme nt; s/p Right subscapul emily repair, SADDCE, biceps tenodesis , 4; biceps tenodesis failure @ 2.5 months postop 2x/week x 6 weeks Evaluate and Treat Goal: - Decrease pain/swel ling - Increase range of motion - Increase strength and/or endurance Recommend ed Modalitie s: - Heat prior to stretchin g - Ice at the end of the session - Additiona l modalitie s prn, but emphasis should be on manual therapy Precautio ns: WBAT, no motion restricti ons Therapeut ic Exercise: - Passive, active-as sist, active range of motion as tolerated , focusing on gradual progressi on over time - Scapula r shrugs/re tractions - should be major focus! - Submaxima l isometric rotator cuff strengthe cristiano - Build to theraband and weight resistanc e (max 3lbs) as able Emphasize importanc e of home program, 2x/day 2024 025 [email or web address] Not available 03/06/2025 12:14:07 Procedures None recorded. Surgeries None recorded. Imaging None recorded. Medication Orders None recorded. Patient TargetsNo targets recorded. Patient InstructionsNo instructions recorded. Reason for Referral Physical Therapist Referral for Impingement syndrome of right shoulder region DIAGNOSIS: Right shoulder impingement; s/p Right subscapularis repair, SADDCE, biceps tenodesis, 01/22/2024; biceps tenodesis failure @ 2.5 months [id number]/week x 6 weeksEvaluate and TreatGoal: - Decrease pain/swelling - Increase range of motion - Increase strength and/or enduranceRecommended Modalities: - Heat prior to stretching- Ice at the end of the session- Additional modalities prn, but emphasis should be on manual therapyPrecautions: WBAT, no motion restrictionsTherapeutic Exercise: - Passive, active-assist, active range of motion as tolerated, focusing on gradual progression over time- Scapular shrugs/retractions - should be major focus!- Submaximal isometric rotator cuff strengthening- Build to theraband and weight resistance (max 3lbs) as ableEmphasize importance of home program, 2x/day Referring Physician: Jeannie Mena, Orthopedic Surgery, Encounter Date: 02/24/2025 Problems Name Problem SNOMED Code Status Onset Date Resolution Date Notes Provider Name and Address Organization Details Recorded Time No complaints [id number] Active Status : 'I'; Not Available [facility] 4 09:12:21 Pain of left shoulder joint 4133030209283 9109 Active 2020 Status : 'A'; Not Available [facility] 4 11:12:27 Problem Notes None recorded. Procedures Surgical History Date Name Laterality Status Provider Name and Address Organization Details Recorded Time 03/08/20 15331 Therapeutic Exercise (1:1) dee Tao PT [address] [facility] [address], [place], [address], [facility] 03/08/2025 14:53:44 03/08/20 78013: Low complexity PT Eval active Julius Florek, PT [address], [place], [address], [facility] 03/08/2025 14:53:47 03/08/20 25 G8420 BMI Normal, No Follow-Up Plan Required active Julius Tao, PT [address], [place], [address], [facility] 03/09/2025 07:01:56 03/08/20 25 G8427 Current Medication Documented active Julius Tao, PT [address], [place], [address], [facility] 03/09/2025 07:01:48 05/12/19 25 60872 Therapeutic Exercise (1:1) completed Julius Tao, PT [address], [place], [address], [facility] 05/12/2024 08:57:53 05/12/19 25 79125: Manual therapy completed Julius Tao, PT [address], [place], [address], [facility] 05/12/2024 08:57:53 05/09/20 24 63893 Therapeutic Exercise (1:1) completed Josh Echevarria, [employer] [address], [place], [address], [facility] 05/09/2024 08:23:53 05/09/20 24 09471: Manual therapy completed Josh Echevarria, [employer] [address], [place], [address], [facility] 05/09/2024 08:22:09 05/02/20 24 52217 Therapeutic Exercise (1:1) completed Julius Tao, PT [address], [place], [address], [facility] 05/01/2024 15:44:37 05/02/20 24 85524: Manual therapy completed Julius Tao, PT [address], [place], [address], [facility] 05/01/2024 15:44:37 04/28/20 66569 Therapeutic Exercise (1:1) completed Julius Tao, PT [address], [place], [address], [facility] 04/28/2024 05:34:40 04/28/20 74590: Manual therapy completed Julius Tao, PT [address], [place], [address], [facility] 04/28/2024 05:34:40 04/26/20 90966 Therapeutic Exercise (1:1) completed Julius Tao, PT [address], [place], [address], [facility] 04/25/2024 16:17:02 04/26/20 73823: Manual therapy completed Julius Tao, PT [address], [place], [address], [facility] 04/25/2024 16:17:02 04/22/20 53117 Therapeutic Exercise (1:1) completed Julius Tao, PT [address], [place], [address], [facility] 04/21/2024 12:52:55 04/22/20 37811: Manual therapy completed Julius Tao, PT [address], [place], [address], [facility] 04/21/2024 12:52:56 04/20/20 42517 Therapeutic Exercise (1:1) completed Julius Tao, PT [address], [place], [address], [facility] 04/20/2024 11:46:40 04/20/20 09021: Manual therapy completed Julius Tao, PT [address], [place], [address], [facility] 04/20/2024 11:46:43 04/14/20 14638 Therapeutic Exercise (1:1) completed Julius Tao, PT [address], [place], [address], [facility] 04/15/2024 11:56:08 04/14/20 86075: Manual therapy completed Julius Tao, PT [address], [place], [address], [facility] 04/15/2024 11:56:00 04/11/20 91167 Therapeutic Exercise (1:1) completed Julius Tao, PT [address], [place], [address], [facility] 04/10/2024 08:24:50 04/11/20 24670: Manual therapy completed Julius Tao, PT [address], [place], [address], [facility] 04/10/2024 08:24:50 04/05/20 63488 Therapeutic Exercise (1:1) completed Julius Tao, PT [address], [place], [address], [facility] 04/05/2024 06:44:04 04/05/20 85958: Manual therapy completed Julius Tao, PT [address], [place], [address], [facility] 04/05/2024 06:44:04 04/01/20 28616 Therapeutic Exercise (1:1) completed Julius Tao, PT [address], [place], [address], [facility] 03/31/2024 15:24:07 04/01/20 77282: Manual therapy completed Julius Tao, PT [address], [place], [address], [facility] 03/31/2024 15:24:07 03/29/20 47165 Therapeutic Exercise (1:1) completed Julius Tao, PT [address], [place], [address], [facility] 03/28/2024 11:04:52 03/29/20 18533: Manual therapy completed Julius Tao, PT [address], [place], [address], [facility] 03/28/2024 11:04:52 03/25/20 25948 Therapeutic Exercise (1:1) completed Josh Echevarria, [employer] [address], [place], [address], [facility] 03/25/2024 13:17:55 03/25/20 35195: Manual therapy completed Josh Echevarria, [employer] [address], [place], [address], [facility] 03/25/2024 13:17:55 03/23/20 29881 Therapeutic Exercise (1:1) completed Josh Echevarria, [employer] [address], [place], [address], [facility] 03/23/2024 11:37:37 03/23/20 30299: Manual therapy completed Josh Echevarria, [employer] [address], [place], [address], [facility] 03/23/2024 11:37:37 03/17/20 19692 Therapeutic Exercise (1:1) completed Julius Tao PT [address], [place], [address], [facility] 03/17/2024 09:34:47 03/17/20 93261: Manual therapy completed Julius Tao, PT [address], [place], [address], [facility] 03/17/2024 07:08:38 03/15/20 60924 Therapeutic Exercise (1:1) completed Julius Tao, PT [address], [place], [address], [facility] 03/15/2024 06:43:43 03/15/20 63899: Manual therapy completed Julius Tao, PT [address], [place], [address], [facility] 03/15/2024 06:43:43 03/09/20 62440 Therapeutic Exercise (1:1) completed Josh Scafuri, [employer] [address], [place], [address], [facility] 03/09/2024 14:44:40 03/09/20 05404: Manual therapy completed Josh Scafuri, [employer] [address], [place], [address], [facility] 03/09/2024 14:44:40 03/07/20 06403 Therapeutic Exercise (1:1) completed Josh Scafuri, [employer] [address], [place], [address], [facility] 03/07/2024 12:35:25 03/07/20 42432: Manual therapy completed Josh Scafuri, [employer] [address], [place], [address], [facility] 03/07/2024 12:35:25 03/03/20 40558 Therapeutic Exercise (1:1) completed Josh Scafuri, [employer] [address], [place], [address], [facility] 03/03/2024 12:01:17 03/03/20 19598: Manual therapy completed Josh Scafuri, [employer] [address], [place], [address], [facility] 03/03/2024 11:54:06 03/01/20 39917 Therapeutic Exercise (1:1) completed Josh Scafuri, [employer] [address], [place], [address], [facility] 03/01/2024 11:11:52 03/01/20 16954: Manual therapy completed Josh Scafuri, [employer] [address], [place], [address], [facility] 03/01/2024 11:10:49 02/25/20 12505 Therapeutic Exercise (1:1) completed Julius Tao, PT [address], [place], [address], [facility] 02/25/2024 04:53:04 02/25/20 53581: Manual therapy completed Julius Tao, PT [address], [place], [address], [facility] 02/25/2024 04:53:04 02/19/20 03863 Therapeutic Exercise (1:1) completed Josh Echevarria, [employer] [address], [place], [address], [facility] 02/22/2024 10:27:03 02/19/20 08503: Manual therapy completed Josh Echevarria, [employer] [address], [place], [address], [facility] 02/22/2024 10:27:03 02/17/20 81884 Therapeutic Exercise (1:1) completed Josh Echevarria, [employer] [address], [place], [address], [facility] 02/17/2024 14:59:06 02/17/20 26429: Manual therapy completed Josh Echevarria, [employer] [address], [place], [address], [facility] 02/17/2024 14:59:06 02/10/20 05903 Therapeutic Exercise (1:1) completed Julius Tao, PT [address], [place], [address], [facility] 02/10/2024 06:49:45 02/10/20 81397: Manual therapy completed Julius Tao, PT [address], [place], [address], [facility] 02/10/2024 11:48:46 02/08/20 24 73292 Therapeutic Exercise (1:1) completed Julius Tao, PT [address], [place], [address], [facility] 02/08/2024 18:18:50 02/08/20 24 46299: Low complexity PT Eval completed Julius Tao, PT [address], [place], [address], [facility] 02/08/2024 18:18:55 02/08/20 24 G8420 BMI Normal, No Follow-Up Plan Required completed Julius Tao, PT [address], [place], [address], [facility] 02/08/2024 18:19:10 02/08/20 24 G8427 Current Medication Documented completed Julius Tao, PT [address], [place], [address], [facility] 02/08/2024 18:19:03 01/05/20 24 repair of rotator cuff by suture completed ABRAN HARKINS [facility] 02/05/2024 09:57:23 10/28/19 24 Sports Shoulder completed Jeannie Mena MD [address], [place], [address], [facility] 10/28/2023 15:06:42 01/08/20 17 Other completed ABRAN HARKINS [facility] 01/19/2024 13:37:46 01/10/20 01 Stent completed ABRAN HARKINS [facility] 10/28/2023 14:01:35 hernia repair completed ABRAN HARKINS [facility] 01/19/2024 13:38:06 cardiac catheterization completed ABRAN HARKINS [facility] 01/19/2024 13:38:31 Imaging Results None recorded. Procedure Notes None recorded. Medical Equipment None Reported. Allergies No known drug allergies Medications Name Sig Start Date Stop Date Status Note LastModified by Organization Details LastModified Time ketoconazol e 2 % shampoo PLEASE SEE ATTACHED FOR DETAILED DIRECTION S active Not Available Not Available No t Available benzonatate 200 mg capsule TAKE 1 CAPSULE BY MOUTH THREE TIMES A DAY NEEDED FOR 10 DAYS active Not Available Not Available No t Available amlodipine 2.5 mg tablet active Not Available Not Available Not Available acetaminoph en 500 mg tablet TAKE 2 TABLETS BY MOUTH 3 TIMES A DAY active Not Available Not Available No t Available oxycodone-a cetaminophe n 5 mg-325 mg tablet TAKE 1 TAB BY MOUTH EVERY 4-6 HOURS NEEDED 10/27 completed Not Available Not Available Not Available benzonatate 100 mg capsule TAKE 1 CAPSULE BY MOUTH THREE TIMES A DAY NEEDED FOR 10 DAYS active Not Available Not Available No t Available omeprazole ER 20 mg capsule,ext ended release 1 capsule twice a week by oral route. active Not Available Not Available No t Available cephalexin 500 mg capsule TAKE 1 CAPSULE BY MOUTH EVERY 12 HOURS FOR 7 DAYS active Not Available Not Available No t Available nitroglycer in 0.4 mg sublingual tablet PLEASE SEE ATTACHED FOR DETAILED DIRECTION S active Not Available Not Available No t Available docusate sodium 100 mg capsule TAKE 1 CAPSULE BY MOUTH EVERY DAY NEEDED active Not Available Not Available No t Available omeprazole 20 mg capsule,del ayed release active Not Available Not Available Not Available montelukast 10 mg tablet TAKE 1 TABLET BY MOUTH EVERY DAY active Not Available Not Available No t Available hydralazine 50 mg tablet active Not Available Not Available Not Available mupirocin 2 % topical ointment APPLY SPARINGLY TO AFFECTED AREA TWICE A DAY active Not Available Not Available No t Available metoprolol succinate ER 25 mg tablet,exte nded release 24 hr active Not Available Not Available Not Available lorazepam 1 mg tablet TAKE 1 TABLET 1 HOUR PRIOR TO MRI SCAN, MAY REPEAT ONCE active Not Available Not Available No t Available scopolamine 1 mg over 3 days transdermal patch APPLY 1 PATCH EVERY 72 HOURS BY TRANSDERM AL ROUTE FOR 7 DAYS. active Not Available Not Available No t Available losartan 100 mg tablet active Not Available Not Available Not Available ipratropium bromide 21 mcg (0.03 %) nasal spray SPRAY 2 SPRAYS 3 TIMES A DAY BY INTRANASA L ROUTE NEEDED active Not Available Not Available No t Available finasteride 5 mg tablet TAKE 1 TABLET EVERY DAY BY ORAL ROUTE FOR 90 DAYS, FOR BPH. active Not Available Not Available No t Available diazepam 5 mg tablet TAKE 1 TABLET APPROXIMA TELY 1 HOUR PRIOR TO YOU MRI. MAY REPEAT X1 NEEDED FOR EFFECT. 01/18 completed Not Available Not Available Not Available Ventolin HFA 90 mcg/actuati on aerosol inhaler INHALE 2 PUFFS BY MOUTH EVERY 6 HOURS NEEDED FOR WHEEZE active Not Available Not Available No t Available oxycodone 5 mg tablet Take 1 tablet 3 times a day by oral route as needed for 7 days. active Not Available Not Available No t Available ezetimibe 10 mg tablet active Not Available Not Available Not Available rosuvastati n 20 mg tablet active Not Available Not Available Not Available hydralazine 50 mg-hydrochl orothiazide 50 mg tablet 01/18 completed Not Available Not Available Not Available nitroglycer in 10/27 completed Not Available Not Available Not Available metoprolol succinate 10/27 completed Not Available Not Available Not Available Zetia active Not Available Not Availa ble Not Available multiv-min- FA-lycopene -lutein active Not Available Not Available Not Available CoQ-10 100 mg capsule 1 capsule every day by oral route. active Not Available Not Available No t Available GaviLyte-G 236 gram-22.74 gram-6.74 gram-5.86 gram oral solution DRINK 240 ML BY MOUTH EVERY 10 MINUTES 10/27 completed Not Available Not Available Not Available Eliquis 5 mg tablet active Not Available Not Available No t Available Vitals Date Recorded Body height Body mass index (BMI) Body weight Provider Name and Address Organization Details Last Updated DateTime 08/22/2024 182.88 cm 22.4 kg/m2 01074.74 g ABRAN HARKINS [facility] 08/22/2024 09:39:23 Date Recorded Body height Body mass index (BMI) Body weight Provider Name and Address Organization Details Last Updated DateTime 02/24/2025 182.88 cm 22.4 kg/m2 98151.74 g Imelda Dorman [facility] 02/24/2025 08:59:40 Social History Question Answer Notes LastModified by Organizat ion Details LastModified Time Tobacco Smoking Status Never Smoker ABRAN velasquez [facility] 10/28/2023 14:01:35 What Is Your Relationship Status? [email or web address] Information not available 02/24/2025 Sex: Unknown Functional Status Question Answer Note LastModified by Organizat ion Details LastModified Time How many times per week do you consume alcohol? 3-4 times per week Information not available 02/24/2025 Do you use any illicit or recreational drugs? No [email or web address] Information not available 02/24/2025 Do you or have you ever used any other forms of tobacco or nicotine? No [email or web address] Information not available 10/28/2023 What is your level of alcohol consumption? Occasional [email or web address] Information not available 02/24/2025 Mental Status None recorded. Family History Nothing Reported. Medical History Condition Response Allergies/Hayfever N Coronary Artery Disease N Anxiety/Depression N Breathing or lung disorders N Emphysema N Nerve Disorders N Thyroid Problems N COPD N Pacemaker N Anemia N Kidney/Bladder Problems N Vascular Disease N Heart Trouble Y Heart Attack ([place]) N Gastrointestinal Disease N Cholesterol Y Diabetes N Autoimmune disease N Bleeding Disorder N Orthotics N Arthritis N Seizures/Epilepsy N Blood Clot N AIDS/HIV N Congestive Heart Failure (CHF) N Acid Reflux (GERD) N Cancer N Stroke N Asthma N Circulation Problems N Peripheral Vascular Disease N Sleep Apnea Y Hepatitis N Heart Disease N Rheumatoid Arthritis N Arrhythmia N Pulmonary Embolism N Headaches N Fibromyalgia N Hypertension Y Osteoporosis N Past Encounters Encounter ID Performer Location Encounter Start Date Encounter Closed Date Diagnosis/Indication Diagnosis SNOMED-CT Code Diagnosis ICD10 Code Diagnosis IMO Codes Diagnosis Note [id number] MD Shauna Bateman [address] [place] [address] 10/28/2023 13:36:09 11/17/2023 16:08:42 Pain of right shoulder joint 2362528881 8717140 M25.295 [id number] MD Shauna Bateman [address] [place] [address] 12/01/2023 12:18:02 12/29/2023 15:07:19 Pain of right shoulder joint 2412441263 7682874 M25.670 [id number] [place] [address] [address] 12/11/2023 07:09:19 01/08/2024 17:14:21 Partial thickness rotator cuff tear 172510868 M75.111 Full thick ness rotator cuff tear 353723906 M75.317 [id number] MD Shauna Bateman [address] [place] [address] 01/19/2024 13:19:43 02/11/2024 13:48:49 Partial thickness rotator cuff tear [id number] M75.667 [id number] MD Shauna Bateman [address] [place] [address] 02/05/2024 09:35:17 02/26/2024 15:00:35 Follow-up orthopedic assessment [id number] Z47.89 [id number] Julius Tao, PT [facility] [address] [place] [address] 02/08/2024 12:15:30 02/08/2024 13:10:24 Rupture of rotator cuff of right shoulder [id number] M75.773 [id number] Julius Tao, PT [facility] [address] [place] [address] 02/10/2024 06:43:06 02/10/2024 07:34:40 Rupture of rotator cuff of right shoulder [id number] M75.117 [id number] Josh Echevarria, [employer] [facility] [address] [place] [address] 02/17/2024 11:20:44 02/17/2024 12:11:01 Rupture of rotator cuff of right shoulder [id number] M75.505 [id number] Josh Echevarria, [employer] [facility] [address] [place] [address] 02/19/2024 15:09:10 02/19/2024 16:08:13 Rupture of rotator cuff of right shoulder [id number] M75.880 [id number] Julius Tao, PT [facility] [address] [place] [address] 02/25/2024 07:45:19 02/25/2024 10:37:19 Rupture of rotator cuff of right shoulder [id number] M75.702 [id number] Josh Echevarria, [employer] [facility] [address] [place] [address] 03/01/2024 09:46:12 03/01/2024 11:23:39 Rupture of rotator cuff of right shoulder [id number] M75.290 [id number] Josh Echevarria, [employer] [facility] [address] [place] [address] 03/03/2024 09:41:20 03/03/2024 10:29:06 Rupture of rotator cuff of right shoulder [id number] M75.358 [id number] Josh Echevarria, [employer] [facility] [address] [place] [address] 03/07/2024 10:45:28 03/07/2024 11:34:17 Rupture of rotator cuff of right shoulder [id number] M75.337 [id number] Josh Echevarria, [employer] [facility] [address] [place] [address] 03/09/2024 10:46:52 03/09/2024 12:19:55 Rupture of rotator cuff of right shoulder [id number] M75.545 [id number] Julius Tao, PT [facility] [address] [place] [address] 03/15/2024 08:44:39 03/15/2024 10:31:45 Rupture of rotator cuff of right shoulder [id number] M75.837 [id number] Julius Dinh, PT [facility] [address] [place] [address] 03/17/2024 08:46:24 03/17/2024 11:06:50 Rupture of rotator cuff of right shoulder [id number] M75.084 [id number] Kati Blackmon, AUTHORIZATION MANAGER [facility] [address] [place] [address] 03/24/2024 08:49:00 04/12/2024 13:57:05 [id number] Josh Echevarria, [employer] [facility] [address] [place] [address] 03/23/2024 10:48:37 03/23/2024 12:01:00 Rupture of rotator cuff of right shoulder [id number] M75.145 [id number] Josh Echevarria, [employer] [facility] [address] [place] [address] 03/25/2024 10:48:34 03/25/2024 12:53:50 Rupture of rotator cuff of right shoulder [id number] M75.610 [id number] Julius Tao, PT [facility] [address] [place] [address] 03/29/2024 09:15:43 03/29/2024 10:47:41 Rupture of rotator cuff of right shoulder [id number] M75.760 [id number] Julius Tao, PT [facility] [address] [place] [address] 04/01/2024 09:16:55 04/01/2024 10:18:00 Rupture of rotator cuff of right shoulder [id number] M75.638 [id number] Julius Tao PT [facility] [address] [place] [address] 04/05/2024 09:20:08 04/05/2024 10:52:55 Rupture of rotator cuff of right shoulder [id number] M75.404 [id number] MD Jeremías Bateman [facility] [address] [place] [address] 04/29/2024 09:36:12 05/22/2024 10:27:52 Follow-up orthopedic assessment [id number] Z47.89 [id number] Julius Tao, PT [facility] [address] [place] [address] 04/11/2024 10:42:23 04/11/2024 11:53:47 Rupture of rotator cuff of right shoulder [id number] M75.524 [id number] Julius Florek, PT [facility] [address] [place] [address] 04/14/2024 13:15:43 04/14/2024 14:19:15 Rupture of rotator cuff of right shoulder [id number] M75.591 [id number] Julius Tao, PT [facility] [address] [place] [address] 04/20/2024 08:14:11 04/20/2024 09:02:39 Rupture of rotator cuff of right shoulder [id number] M75.409 [id number] Julius Tao, PT [facility] [address] [place] [address] 04/22/2024 09:17:28 04/22/2024 10:31:17 Rupture of rotator cuff of right shoulder [id number] M75.183 [id number] Julius Dinh, PT [facility] [address] [place] [address] 04/26/2024 09:52:15 04/26/2024 10:21:58 Rupture of rotator cuff of right shoulder [id number] M75.254 [id number] Julius Tao, PT [facility] [address] [place] [address] 04/28/2024 09:17:13 04/28/2024 10:41:24 Rupture of rotator cuff of right shoulder [id number] M75.359 [id number] Juliusfannie Tao, PT [facility] [address] [place] [address] 05/02/2024 09:17:05 05/03/2024 06:40:18 Rupture of rotator cuff of right shoulder [id number] M75.379 [id number] Josh Echevarria, [employer] [facility] [address] [place] [address] 05/09/2024 07:13:32 05/09/2024 07:54:26 Rupture of rotator cuff of right shoulder [id number] M75.553 [id number] Juliusfannie Tao, PT [facility] - [facility] [address] [place] [address] 05/12/2024 10:18:05 05/12/2024 11:18:11 Rupture of rotator cuff of right shoulder [id number] M75.508 [id number] MD [facility] Bateman 2nd floor [address] [place] [address] 08/22/2024 09:33:01 09/01/2024 15:14:22 Follow-up orthopedic assessment [id number] Z47.89 [id number] MD [facility] [address] [place] [address] 02/24/2025 08:26:36 03/06/2025 12:14:07 Impingement syndrome of right shoulder region [id number] M75.41 [id number] Health Concerns Section Related Observation LastModified by Organization Detai ls LastModified Time None Recorded Concern Status LastModified by Organization Details LastModified Time None Recorded Advance Directives Directive None Recorded Payers Insurance Date Sequence Insurance Name Policy Number Policy Marx Covered Member ID Marx Member ID Guarantor Name 02/21/2025 NORIDIAN - SPECIALITY CLAIMS (MEDICARE DME REGION A) Pipo Vidal [id number] Pipo Vidal 03/07/2025 2 [place] [id number] Pipo Vidal [id number] Pipo Vidal 02/24/2025 1 [place] [employer] Pipo Vidal [id number] Pipo Vidal Notes Date Note Type Note Provider Name and Address Organization Details Recorded Time 05/02/2024 text/html Patient states pain 0/10 at rest, 2/10 with movement. Pt states arm is feeling better, but still has some bruising. Saw , dx as LHB tenotomy. Julius Tao, PT [address], [place], [address], [place] - [facility] 05/02/2024 16:53:09 05/09/2024 text/html Patient states pain 0/10 pain. Josh Scafuri, M[employer]AR M[employer]ER [address], [place], [address], [place] - [facility] 05/09/2024 08:27:30 05/12/2024 text/html Patient states pain 0/10 pain. Julius Tao, PT [address], [place], [address], [facility] - [facility] 05/12/2024 19:12:49 08/22/2024 text/html Surgery: Right shoulder subscapularis repair, biceps tenodesis, SADDCE, 01/22/2024 Interval History: The patient returns today in follow-up now 7 months out from surgery as above. Unfortunately had what seems to be rupture of his biceps tenodesis around 2.5 months postop, maybe after initiation of stretching behind the back; no specific injury that he can recall. This was associated with increased pain initially. Pain has subsided dramatically over the following week or 2. Aware of new biceps deformity along with bruising and swelling. He has continued with PT down in [place], working on strengthening progression. Happy with his motion. Still a little bit achy at nighttime or with more prolonged pickleball playing, but notes continued improvements over time. Occasional clicking, not painful. No issues with incisions. No numbness or tingling in arm or hand. We have not yet let the patient return to work. Past family, medical, social history and review of systems have been reviewed and updated on the medical history sheet saved to the patient's chart. A 12-point review of systems is negative x12 except as noted above and/or on the medical history sheet. Examination: Pleasant 69-year-old gentleman in no acute distress. On exam of the Right upper extremity, arthroscopic portal incisions are nicely healed. Slight Leonard deformity evident. Active forward elevation 170, still with slight hitching mechanics; passive ER 70; IR L3. 5/5 with scaption, IR and ER without pain. Negative Yergason's. Sensation intact in axillary and LABC distributions. Fires EPL, FPL and intrinsics. Hand is warm and well perfused. 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 Has likely sustained a rupture of his tenodesis. Fortunately his subscapularis repair still feels to be intact. Plan: I have encouraged the patient to continue with a slow and steady progression of strengthening activities, working up to higher reps before increasing the amount of weight or resistance. With day-to-day activities, may gradually increase what he is doing. Discussed the importance of listening to his body, stopping if there is pain. Also discussed the importance of good mechanics, including keeping weight close to the body, avoiding lifting an awkward positions with weight away from the body, and using slow controlled movements always. For occasional aches and pains, she can take amoo-qwj-ullzyex medication such as Tylenol or anti-inflammatories as needed; risks and benefits of medication discussed. Should call with more persistent pain. We will leave follow up open ended at this point. However should symptoms worsen or fail to improve to the patient's satisfaction, he is encouraged to give the office a call to be seen back for further evaluation and management. [employer] speech recognition new car salesperson software was used to create portions of this document. An attempt at proofreading has been made to minimize errors. Please call for corrections. Jeannie Mena MD [address] [place] [address] Suite [facility], [place], [address], [facility] - [facility] 08/22/2024 10:07:02 02/24/2025 text/html Surgery: Right shoulder subscapularis repair, biceps tenodesis, [facility], 01/22/2024 Interval History: The patient returns today in follow-up now a little over a year out from surgery as above. Unfortunately had what seems to be rupture of his biceps tenodesis around 2.5 months postop, maybe after initiation of stretching behind the back; no specific injury that he can recall. This was associated with increased pain initially. Pain subsided dramatically over the following week or 2. Aware of new biceps deformity along with bruising and swelling. He completed PT down in [place], has continued with exercises on her own at home. Happy with his motion. Has resumed pickleball playing. Notes that drills are not painful, but when he gets into more competitive matches, can have pain with swinging. Also aware of discomfort with some overhead strengthening exercises. Occasional clicking, not painful. No issues with incisions. No numbness or tingling in arm or hand. Past family, medical, social history and review of systems have been reviewed and updated on the medical history sheet saved to the patient's chart. A 12-point review of systems is negative x12 except as noted above and/or on the medical history sheet. Examination: Pleasant 69-year-old gentleman in no acute distress. On exam of the Right upper extremity, arthroscopic portal incisions are nicely healed. Slight Leonard deformity evident. Active forward elevation 170, improved mechanics, still some slight hitching; passive ER 70; IR L3. 5/5 with scaption, IR and ER without pain. Does have some mild pain and weakness with bearhug maneuver. No pain with Yergason's. Sensation intact in axillary and LABC distributions. Fires EPL, FPL and intrinsics. Hand is warm and well perfused. 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 Has likely sustained a rupture of his tenodesis. Having a little bit of pain with testing subscapularis. Overall exam benign. Plan: Options for management reviewed with the patient. Will have him return to physical therapy to work on scapular posture exercises and continued strengthening progression. Discussed that should symptoms continue, the next up would be to obtain an MRI to further evaluate both subscapularis tear and for progression of what turned out to be a low-grade partial thickness supraspinatus tear that did not require formal repair. For occasional aches and pains, the patient can take [id number]-[id number]-llljtmx medication such as Tylenol or anti-inflammatories as needed; risks and benefits of medication discussed. Should call with more persistent pain. We will leave follow up open ended at this point. However should symptoms worsen or fail to improve to the patient's satisfaction, he is encouraged to give the office a call to be seen back for further evaluation and management. [employer] speech recognition new car salesperson software was used to create portions of this document. An attempt at proofreading has been made to minimize errors. Please call for corrections. Jeannie Mena MD [address] [place], [place] [address] [facility], [place], [address], [facility] - [facility] 02/24/2025 09:25:51
== END 2025-03-09 09:49 | disposition home or self-care (01) ==
LOC: HO.BBR 09:48
PROVIDERS: PCP Physician Assistant Medical; Visit Provider Internal Medicine Hematology & Oncology
DX: D45 Polycythemia vera (principal)
CPT/HCPCS: 85018; 99195

== ENCOUNTER 2025-03-23 09:43 | Outpatient (REF) | payer MEDICARE, SELFPAY ==
--- OUTSIDE RECORDS SUMMARY | 2025-03-23 11:16 | XMS_ITS | Continuity of Care Document ---
Author Organization [facility] [address] [place] [address] Care Team Providers Care Camp Director Name Role Phone LUCRETIA NICOLE Referring Provider [phone] LUCRETIA NICOLE Primary Care Provider MENA BARNEY Mutual Fund Manager Assessment Encounter Date Assessment Date Assessment LastModified by Organization Details LastModified Time 03/08/2025 03/08/2025 Assessment: Patient presents with signs and symptoms consistent with shoulder impingement, including positive Andrade-Kenned y sign, pain with flexion and internal rotation, and limitations with functional ADL's such as reaching and lifting. Plan: Continue PT @ 2x/wk for 6 weeks to decrease pain, increase strength, optimize shoulder mechanics for functional movements such as reaching and self-care. Lower trap strength. [email or web address] Not available 03/08/2025 14:55:42 Plan of Treatment Reminders Order Date Submit Date Provider Last Modified By Organization Details Last Modified Time Details Appointments PT FOLLOW -UP 025 10:30AM Julius Tao, PT Not available Not available Not available PT FOLLOW -UP 025 08:00AM Julius Tao, PT Not available Not available Not available PT FOLLOW -UP 025 07:00AM Julius Tao, PT Not available Not available Not available PT ANY 30 025 07:00AM Julius Tao, PT Not available Not available Not available PT FOLLOW -UP 025 07:30AM Josh Echevarria, KNITTING SUPERVISOR Not available Not available Not available PT FOLLOW -UP 025 01:00PM Julius Florek, PT Not available Not available Not available PT FOLLOW -UP 025 08:00AM Julius Grecoek, PT Not available Not available Not available PT FOLLOW -UP 025 08:00AM Julius Grecoek, PT Not available Not available Not available PT FOLLOW -UP 025 07:30AM Julius Grecoek, PT Not available Not available Not available PT FOLLOW -UP 07:00AM Josh Scafuri, KNITTING SUPERVISOR Not available Not available Not available PT FOLLOW -UP 025 07:30AM Josh Scafuri, KNITTING SUPERVISOR Not available Not available Not available PT FOLLOW -UP 07:30AM Julius Grecoek, PT Not available Not available Not available PT FOLLOW -UP 07:30AM Josh Scafuri, KNITTING SUPERVISOR Not available Not available Not available Lab None record ed. Referral None record ed. Procedures None record ed. Surgeries None record ed. Imaging None record ed. Medication Orders None record ed. Patient Targets Encounter Date Encounter Id Patient Goals Patient Target Last Modified By Organization Details Last Modified Time 03/08/2025 [id number] 3 weeks of Right Shoulder PROM motion: external rotation: at 0 degrees of abduction: passive motion right (90 deg.) Not available Not available Not available 3 weeks of Right Shoulder PROM (normal) motion: forward flexion: passive motion right (180 deg.) Not available Not available Not available 3 weeks of Right Shoulder PROM Motion: Internal Rotation: At 0 Degrees Abduction: Passive Motion Right (90 deg.) Not available Not available Not available 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 goal of Right Shoulder PROM All shoulder PROM WNL Not available Not available Not available 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 goal of Right Shoulder PROM WNL Not available Not available Not available [facility] goal of Right Shoulder Strength (normal) strength: shoulders: external rotation: right: at 0 degrees of abduction 5 (0-5) Not available Not available Not available [facility] goal of Right Shoulder Strength (normal) strength: shoulders: internal rotation: right 5 (0-5) Not available Not available Not available 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 goal of Right Shoulder Strength (normal) strength: shoulders: flexion: right 5 (0-5) Not available Not available Not available 3 weeks of Sleeping no trouble sleeping Not available Not available Not available 3 weeks of Overall ADL's WFL Not available Not available Not available 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 goal of Overall ADL's unlimited Not available Not available Not available [facility] goal of Reaching performs without symptoms Not available Not available Not available 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 Reason for Referral None Reported. Problems Name Problem SNOMED Code Status Onset Date Resolution Date Notes Provider Name and Address Organization Details Recorded Time No complaints [id number] Active Status : 'I'; Not Available [facility] 4 09:12:21 Pain of left shoulder joint [id number] 9109 Active 2020 Status : 'A'; Not Available [facility] 4 11:12:27 Problem Notes None recorded. Procedures Surgical History Date Name Laterality Status Provider Name and Address Organization Details Recorded Time 03/22/20 97398 Therapeutic Exercise (1:1) completed Julius Tao, PT [address], [place], [address], [facility] 03/22/2025 08:11:02 03/22/20 77455: Manual therapy completed Julius Tao, PT [address], [place], [address], [facility] 03/22/2025 08:11:02 03/17/20 93155 Therapeutic Exercise (1:1) completed Julius Tao, PT [address], [place], [address], [facility] 03/17/2025 03:56:30 03/17/20 74214: Manual therapy completed Julius Tao, PT [address], [place], [address], [facility] 03/17/2025 03:56:30 03/14/20 96909 Therapeutic Exercise (1:1) completed Julius Tao, PT [address], [place], [address], [facility] 03/14/2025 03:57:28 03/14/20 93709: Manual therapy completed Julius Tao, PT [address], [place], [address], [facility] 03/14/2025 03:57:28 03/10/20 60323 Therapeutic Exercise (1:1) completed Julius Tao, PT [address], [place], [address], [facility] 03/10/2025 08:48:32 03/10/20 31478: Manual therapy completed Julius Tao, PT [address], [place], [address], [facility] 03/10/2025 08:48:42 03/08/20 90410 Therapeutic Exercise (1:1) completed Julius Tao, PT [address], [place], [address], [facility] 03/08/2025 14:53:44 03/08/20 05104: Low complexity PT Eval completed Julius Tao, PT [address], [place], [address], [facility] 03/08/2025 14:53:47 03/08/20 G8420 BMI Normal, No Follow-Up Plan Required completed Julius Tao, PT [address], [place], [address], [facility] 03/09/2025 07:01:56 03/08/20 G8427 Current Medication Documented completed Julius Tao, PT [address], [place], [address], [facility] 03/09/2025 07:01:48 05/12/19 15718 Therapeutic Exercise (1:1) completed Julius Tao, PT [address], [place], [address], [facility] 05/12/2024 08:57:53 05/12/19 39756: Manual therapy completed Julius Tao, PT [address], [place], [address], [facility] 05/12/2024 08:57:53 05/09/20 40565 Therapeutic Exercise (1:1) completed Josh Echevarria, KNITTING SUPERVISOR [address], [place], [address], [facility] 05/09/2024 08:23:53 05/09/20 17579: Manual therapy completed Josh Echevarria, KNITTING SUPERVISOR [address], [place], [address], [facility] 05/09/2024 08:22:09 05/02/20 04869 Therapeutic Exercise (1:1) completed Julius Tao, PT [address], [place], [address], [facility] 05/01/2024 15:44:37 05/02/20 66023: Manual therapy completed Julius Tao, PT [address], [place], [address], [facility] 05/01/2024 15:44:37 04/28/20 27598 Therapeutic Exercise (1:1) completed Julius Tao, PT [address], [place], [address], [facility] 04/28/2024 05:34:40 04/28/20 61564: Manual therapy completed Julius Tao PT [address], [place], [address], [facility] 04/28/2024 05:34:40 04/26/20 71527 Therapeutic Exercise (1:1) completed Julius Tao PT [address], [place], [address], [facility] 04/25/2024 16:17:02 04/26/20 24 27742: Manual therapy completed Julius Tao, PT [address], [place], [address], [facility] 04/25/2024 16:17:02 04/22/20 53154 Therapeutic Exercise (1:1) completed Julius Tao, PT [address], [place], [address], [facility] 04/21/2024 12:52:55 04/22/20 36316: Manual therapy completed Julius Tao, PT [address], [place], [address], [facility] 04/21/2024 12:52:56 04/20/20 83155 Therapeutic Exercise (1:1) completed Julius Tao, PT [address], [place], [address], [facility] 04/20/2024 11:46:40 04/20/20 41319: Manual therapy completed Julius Tao, PT [address], [place], [address], [facility] 04/20/2024 11:46:43 04/14/20 56712 Therapeutic Exercise (1:1) completed Julius Tao, PT [address], [place], [address], [facility] 04/15/2024 11:56:08 04/14/20 17863: Manual therapy completed Julius Tao, PT [address], [place], [address], [facility] 04/15/2024 11:56:00 04/11/20 85599 Therapeutic Exercise (1:1) completed Julius Tao, PT [address], [place], [address], [facility] 04/10/2024 08:24:50 04/11/20 46753: Manual therapy completed Julius Tao, PT [address], [place], [address], [facility] 04/10/2024 08:24:50 04/05/20 48890 Therapeutic Exercise (1:1) completed Julius Tao, PT [address], [place], [address], [facility] 04/05/2024 06:44:04 04/05/20 06064: Manual therapy completed Julius Tao, PT [address], [place], [address], [facility] 04/05/2024 06:44:04 04/01/20 35502 Therapeutic Exercise (1:1) completed Julius Tao, PT [address], [place], [address], [facility] 03/31/2024 15:24:07 04/01/20 57759: Manual therapy completed Julius Tao, PT [address], [place], [address], [facility] 03/31/2024 15:24:07 03/29/20 34877 Therapeutic Exercise (1:1) completed Julius Tao, PT [address], [place], [address], [facility] 03/28/2024 11:04:52 03/29/20 79612: Manual therapy completed Julius Tao, PT [address], [place], [address], [facility] 03/28/2024 11:04:52 03/25/20 67968 Therapeutic Exercise (1:1) completed Josh Echevarria, KNITTING SUPERVISOR [address], [place], [address], [facility] 03/25/2024 13:17:55 03/25/20 30185: Manual therapy completed Josh Echevarria, KNITTING SUPERVISOR [address], [place], [address], [facility] 03/25/2024 13:17:55 03/23/20 40242 Therapeutic Exercise (1:1) completed Josh Echevarria, KNITTING SUPERVISOR [address], [place], [address], [facility] 03/23/2024 11:37:37 03/23/20 28949: Manual therapy completed Josh Echevarria, KNITTING SUPERVISOR [address], [place], [address], [facility] 03/23/2024 11:37:37 03/17/20 66915 Therapeutic Exercise (1:1) completed Julius Tao, PT [address], [place], [address], [facility] 03/17/2024 09:34:47 03/17/20 39582: Manual therapy completed Julius Tao, PT [address], [place], [address], [facility] 03/17/2024 07:08:38 03/15/20 77785 Therapeutic Exercise (1:1) completed Julius Tao, PT [address], [place], [address], [facility] 03/15/2024 06:43:43 03/15/20 24393: Manual therapy completed Julius Tao, PT [address], [place], [address], [facility] 03/15/2024 06:43:43 03/09/20 37729 Therapeutic Exercise (1:1) completed Josh Echevarria, KNITTING SUPERVISOR [address], [place], [address], [facility] 03/09/2024 14:44:40 03/09/20 40686: Manual therapy completed Josh Echevarria, KNITTING SUPERVISOR [address], [place], [address], [facility] 03/09/2024 14:44:40 03/07/20 52619 Therapeutic Exercise (1:1) completed Josh Powersfuri, KNITTING SUPERVISOR [address], [place], [address], [facility] 03/07/2024 12:35:25 03/07/20 63619: Manual therapy completed Josh Scafuri, KNITTING SUPERVISOR [address], [place], [address], [facility] 03/07/2024 12:35:25 03/03/20 08310 Therapeutic Exercise (1:1) completed Josh Echevarria, KNITTING SUPERVISOR [address], [place], [address], [facility] 03/03/2024 12:01:17 03/03/20 88954: Manual therapy completed Josh Echevarria, KNITTING SUPERVISOR [address], [place], [address], [facility] 03/03/2024 11:54:06 03/01/20 16279 Therapeutic Exercise (1:1) completed Josh Echevarria, KNITTING SUPERVISOR [address], [place], [address], [facility] 03/01/2024 11:11:52 03/01/20 53896: Manual therapy completed Josh Echevarria, KNITTING SUPERVISOR [address], [place], [address], [facility] 03/01/2024 11:10:49 02/25/20 44876 Therapeutic Exercise (1:1) completed Julius Tao, PT [address], [place], [address], [facility] 02/25/2024 04:53:04 02/25/20 90566: Manual therapy completed Julius Tao, PT [address], [place], [address], [facility] 02/25/2024 04:53:04 02/19/20 52157 Therapeutic Exercise (1:1) completed Josh Echevarria, KNITTING SUPERVISOR [address], [place], [address], [facility] 02/22/2024 10:27:03 02/19/20 84255: Manual therapy completed Josh Echevarria, KNITTING SUPERVISOR [address], [place], [address], [facility] 02/22/2024 10:27:03 02/17/20 24 37690 Therapeutic Exercise (1:1) completed Josh Echevarria, KNITTING SUPERVISOR [address], [place], [address], [facility] 02/17/2024 14:59:06 02/17/20 24 39799: Manual therapy completed Josh Echevarria, KNITTING SUPERVISOR [address], [place], [address], [facility] 02/17/2024 14:59:06 02/10/20 24 12730 Therapeutic Exercise (1:1) completed Julius Tao, PT [address], [place], [address], [facility] 02/10/2024 06:49:45 02/10/20 24 30390: Manual therapy completed Julius Tao, PT [address], [place], [address], [facility] 02/10/2024 11:48:46 02/08/20 24 52635 Therapeutic Exercise (1:1) completed Julius Tao, PT [address], [place], [address], [facility] 02/08/2024 18:18:50 02/08/20 24 68353: Low complexity PT Eval completed Julius Tao PT [address], [place], [address], [facility] 02/08/2024 18:18:55 02/08/20 24 G8420 BMI Normal, No Follow-Up Plan Required completed Julius Tao PT [address], [place], [address], [facility] 02/08/2024 18:19:10 02/08/20 24 G8427 Current Medication Documented completed Julius Tao PT [address], [place], [address], [facility] 02/08/2024 18:19:03 01/05/20 24 repair of rotator cuff by suture completed ABRAN HARKINS [facility] 02/05/2024 09:57:23 10/28/19 24 Sports Shoulder completed Jeannie Mena MD [facility] [address], [place], [address], [facility] 10/28/2023 15:06:42 01/08/20 17 Other completed ABRAN HAQRO [facility] 01/19/2024 13:37:46 01/10/20 01 Stent completed ABRAN HARKINS [facility] 10/28/2023 14:01:35 [facility] 01/19/2024 13:38:06 cardiac catheterization completed ABRAN HARKINS [facility] 01/19/2024 13:38:31 Imaging Results None recorded. Procedure [...] Available Not Available No t Available Vitals None Recorded Social History Question Answer Notes LastModified by Organizat ion Details LastModified Time Tobacco Smoking Status Never Smoker ABRNA velasquez [place] [facility] 10/28/2023 14:01:35 What Is Your Relationship Status? [email or web address] Information not available 02/24/2025 Sex: Unknown Functional Status Question Answer Note LastModified by Organizat ion Details LastModified Time How many times per week do you consume alcohol? 3-4 times per week [email or web address] Information not available 02/24/2025 Do you use any illicit or recreational drugs? No [email or web address] Information not available 02/24/2025 Do you or have you ever used any other forms of tobacco or nicotine? No [email or web address] Information not available 10/28/2023 What is your level of alcohol consumption? Occasional [email or web address] Information not available 02/24/2025 Mental Status None recorded. Family History Nothing Reported. Medical History Condition Response Allergies/Hayfever N Coronary Artery Disease N Anxiety/Depression N Breathing or lung disorders N Emphysema N Nerve Disorders N Thyroid Problems N COPD N Pacemaker N Anemia N Kidney/Bladder Problems N Vascular Disease N Heart Trouble Y Heart Attack ([place]) N Gastrointestinal Disease N Cholesterol Y Diabetes [...] ICD10 Code Diagnosis IMO Codes Diagnosis Note [id number] [place] [address] 02/24/2025 08:26:36 03/06/2025 12:14:07 Impingement syndrome of right shoulder region [id number] 04105 M75.41 [id number] Julius Tao, PT [facility] [address] [place] [address] 03/08/2025 13:11:38 03/08/2025 16:24:18 Impingement syndrome of right shoulder region [id number] 80429 M75.41 Health Concerns Section Related Observation LastModified by Organization Detai ls LastModified Time None Recorded Concern Status LastModified by Organization Details LastModified Time None Recorded Payers Encounter Date Sequence Insurance Name Policy Number Policy Marx Covered Member ID Marx Member ID Guarantor Name 03/08/2025 2 [place] [id number] Pipo Vidal [id number] Pipo Vidal 03/08/2025 1 [place] [employer] Pipo Vidal [id number] Pipo Vidal Notes Date Note Type Note Provider Name and Address Organization Details Recorded Time 03/08/2025 text/html Patient is 69 year old male with history of shoulder pain beginning gradually over time, did have a right ARCR 02/21/24. Reports notable pain reaching overhead and behind their back. Pain can be sharp at times and is localized around the subacromial space. Patient reports feeling limited in usual activities such as lifting, reaching overhead, and self-care activities due to pain. Current vocational status is retired.Functional limitations include pain with reaching overhead, difficulty sleeping on side at night, and discomfort reaching behind back for self-care. Patient goal is to have no pain, get back to all normal activities, Julius Tao, PT [address], [place], [address], [facility] 03/09/2025 07:02:26
--- OUTSIDE RECORDS SUMMARY | 2025-03-23 11:17 | XMS_ITS | Clinical Summary ---
Author Organization [facility] Address [address] [place] [address] Phone Care Team Providers Care Maintenance Craftsman Name Role Phone Pankaj Storey Primary Care [...] 02/06/2025 9:00 AM EDT Consult Pulmonology - [facility] [address] [facility] [address] [place] [address] Jessica Ulrich MD Mild intermittent asthma, unspecified whether complicated (Primary Dx) 01/27/2025 9:44 AM EDT - 01/27/2025 11:59 PM EDT Hospital Encounter [facility] [address] [place] [address] Cough variant asthma Discharge Disposition: Home or [...] from the original result were not included. [facility] [address] [place] [address] Pulmonary Functions Report Date of service: 01/27/25 [...] Result from Last 3 Months Insurance MEDICARE [facility] Care Teams Maintenance Craftsman Relationship Specialty Start Date End Date Pankaj Storey PA [address] [address] PCP - General Internal Medicine 01/26/25
--- OUTSIDE RECORDS SUMMARY | 2025-03-23 11:17 | XMS_ITS ---
[...] Available Dymista 137 mcg-50 mcg/spray nasal spray [place] 1 spray every day by nasal route for 30 days. 01/29 completed Not Available Not Available [...] one) 50 mcg/actua tion nasal spray,sreekanth pension [place] 1 spray every day by intranas al [...] Details Last Updated DateTime 5 23.8 kg/m2 03561.3 6 g 52 /min 98 % 98 % 98.3 [degF] 120/69 mm[Hg] Isela Rosales LPN [facility] 5 09:23:41 Date Recorded Body height Provider Name an d Address Organization Details Last Updated DateTime 10/10/2024 182.88 cm Ignacia Macario MA [facility] 10/10/2024 09:19:32 Date Recorded Body height Body mass index (BMI) Body weight Oxygen saturation Oxygen saturation in Arterial blood by Pulse oximetry Heart rate Body temperature Systolic And Diastolic Provider Name and Address Organization Details Last Updated DateTime 5 182.88 cm 23.8 kg/m2 65496.3 6 g 97 % 97 % 55 /min 98.2 [degF] 129/72 mm[Hg] Kayli Flores MA [facility] 5 14:22:42 Date Recorded Body height Body mass index (BMI) Body weight Heart rate Oxygen saturation Oxygen saturation in Arterial blood by Pulse oximetry Body temperature Systolic And Diastolic Provider Name and Address Organization Details Last Updated DateTime 5 182.88 cm 23.5 kg/m2 77162.4 8 g 52 /min 95 % 95 % 97.8 [degF] 138/72 mm[Hg] Rylee mohr MA [facility] 5 12:53:02 Date Recorded Body height Body mass index (BMI) Body weight Heart rate Oxygen saturation Oxygen saturation in Arterial blood by Pulse oximetry Body temperature Systolic And Diastolic Provider Name and Address Organization Details Last Updated DateTime 5 182.88 cm 23.9 kg/m2 96452.2 6 g 62 /min 96 % 96 % 98 [degF] 143/76 mm[Hg] Rylee mohr MA [facility] 5 09:15:54 Date Recorded Body height Body mass index (BMI) Body weight Heart rate Oxygen saturation Oxygen saturation in Arterial blood by Pulse oximetry Body temperature Systolic And Diastolic Provider Name and Address Organization Details Last Updated DateTime 5 182.88 cm 23.7 kg/m2 98507.6 6 g 56 /min 96 % 96 % 97.7 [degF] 106/67 mm[Hg] Leticia Blackman MA [facility] 5 12:53:24 Social History Question Answer Notes LastModified by Organizat ion Details LastModified Time Tobacco Smoking Status Never Smoker Charu velasquez [facility] 01/18/2014 07:58:09 Do You Have An [...] Health Care Provider Or Emergency Responder? No [email or web address] Information not available 11/21/2019 To The Best Of Your Knowledge Have You Been In Close Proximity To Any Individual Who Tested Positive For COVID-19? No [email or web address] Information not available 11/21/2019 *AWV ONLY* Are [...] Many Children Do You Have? 2 Zaki [email or web address] Information not available 04/22/2018 Do You Use [...] is your level of alcohol consumption? Occasional [email or web address] Information not available 01/30/2020 Do you or have you ever used smokeless tobacco? Never used smokeless tobacco [email or web address] Information not available 11/21/2019 Are you currently employed? No Information not available 01/30/2020 Are you able to walk independently without assistance or assistive devices? [email or web address] Information not available 03/03/2022 Are you able to care for yourself independently? Yes Information not available 01/26/2015 What is your occupation? [employer]TERN [employer] Information not available 04/22/2018 Do you or have you ever used e-cigarettes or vape? Never used electronic cigarettes Information not available 03/03/2022 What is your exercise level? Moderate [email or web address] Information not available 01/30/2020 Mental Status None [...] influenza, unspecified formulation 016 completed Not Available [facility] 03/16/2023 13:49:23 influenza, unspecified formulation 017 completed Not Available [facility] 03/16/2023 13:49:23 Influenza, split virus, quadrivalent, preservative 018 completed Not Available [facility] 03/16/2023 13:49:23 Influenza, high-dose, trivalent, PF 019 completed TAVIA So, [facility] 04/16/2021 14:07:20 Pneumococcal conjugate PCV 13 0[facility] 14:07:20 COVID-19, mRNA, LNP-S, PF, 30 mcg/0.3 mL dose 021 completed TAVIA So [facility] 04/16/2021 14:07:20 COVID-19, mRNA, LNP-S, PF, 30 mcg/0.3 mL dose 021 completed TAVIA So [facility] 04/16/2021 14:07:20 COVID-19, mRNA, LNP-S, PF, 30 mcg/0.3 mL dose 021 completed TAVIA So [facility] 04/16/2021 14:07:20 Influenza, high-dose, quadrivalent, PF 021 completed Not Available [facility] 03/16/2023 13:49:23 Influenza, split virus, trivalent, PF 017 [facility] 14:07:20 Influenza, split virus, quadrivalent, PF 018 completed TAVIA So [facility] 04/16/2021 14:07:20 Influenza, adjuvanted, quadrivalent, PF 021 [facility] 14:07:20 Influenza, split virus, quadrivalent, PF 016 [facility] 14:07:20 Influenza, split virus, trivalent, PF 014 completed TAVIA Mckoy, [facility] 03/03/2022 09:26:35 pneumococcal polysaccharide PPV23 021 completed Abbey Bernstein MA null, [facility] 03/03/2022 09:26:35 Influenza, high-dose, quadrivalent, PF 020 completed Abbey Bernstein MA null, [facility] 03/03/2022 09:26:36 COVID-19, mRNA, LNP-S, PF, 30 mcg/0.3 mL dose, jb-sucrose 022 completed Abbey Bernstein MA null, [facility] 03/03/2022 09:26:36 COVID-19, mRNA, LNP-S, bivalent, PF, 30 mcg/0.3 mL dose 022 completed Imelda Casillas MA null, [facility] 08/14/2022 15:46:22 Influenza, split virus, trivalent, preservative 012 completed Cathy Faria null, [facility] 03/04/2021 10:15:47 Td (adult), 2 Lf tetanus toxoid, preservative free, adsorbed 000 completed Cathy Faria null, [facility] 03/04/2021 10:15:47 Tdap 011 completed Cathy Faria null, [facility] 03/04/2021 10:15:47 pneumococcal polysaccharide PPV23 002 completed Cathy Faria null, [facility] 03/04/2021 10:15:47 influenza, seasonal, intradermal, preservative free 013 completed Cathy Faria null, [facility] 03/04/2021 10:15:47 Td (adult), 2 Lf tetanus toxoid, preservative free, adsorbed 021 cancelled patient objection Lucretia Nicole PA-C [address] [address], [place], [address], [facility] 02/27/2021 10:24:53 Influenza, high-dose, quadrivalent, PF 021 cancelled patient objection Lucretia Nicole PA-C [address], [place], [address], [facility] 02/27/2021 10:24:53 pneumococcal polysaccharide PPV23 021 cancelled patient objection Lucretia Raleigh PA-C [address] [facility] [address], [place], [address], [facility] 02/27/2021 10:24:53 Influenza, high-dose, quadrivalent, PF 022 completed Lucretia Nicole PA-C [address] [facility] [address] [facility], [place], [address], [facility] 03/03/2022 10:28:42 Td (adult), 2 Lf tetanus toxoid, preservative free, adsorbed 023 completed Lucretia Nicole PA-C [address] [address], [place], [address], [facility] 08/15/2022 15:39:24 Influenza, high-dose, quadrivalent, PF 023 completed Lucretia Nicole PA-C [address] [address], [place], [address], [facility] 03/17/2023 19:18:52 Influenza, high-dose, trivalent, PF 024 completed Lucretia Nicole PA-C [address] [address], [place], [address], [facility] 03/23/2024 10:35:43 Influenza, high-dose, trivalent, PF 025 completed Leticia Blackman MA [facility] 02/06/2025 12:54:59 Past Encounters Encounter ID Performer Location Encounter Start Date Encounter Closed Date Diagnosis/Indication Diagnosis SNOMED-CT Code Diagnosis ICD10 Code Diagnosis IMO Codes Diagnosis Note [id number] [facility] [address] [facility] [place] [address] 01/16/2012 00:00:00 [id number] auto[facility]Comm erce [address] [facility] [place], [place] [id number] 04/07/2012 00:00:00 [id number] [facility] erce [address] [facility] [place], [place] [id number] 08/02/2012 00:00:00 [id number] auto[facility] erce [address] [facility] [place], [place] [id number] 01/20/2013 00:00:00 [id number] [facility] [place] [address] [place] [address],[address] [place], [place] [id number] 09/23/2013 00:00:00 [id number] Abbey Rangel [facility] Main Office [address] [address] [place] [address] 01/18/2014 07:49:07 01/18/2014 09:35:46 Cough 74750787 Gastroesop hageal reflux disease 982771200 [id number] [place] Hernandes [facility] Main Office [address] [address] [place] [address] 01/24/2014 09:08:15 01/24/2014 10:25:10 Needs influenza immunization 520288517 Essential hypertension 94355711 Pure hypercholesterolemia 720915128 Adult heal th examination 062821359 risk/benef it prostate cancer screening discussed and pt defers Coronary atherosclerosis 988489121 stable he sees cardio Gastroesop hageal reflux disease 705387893 worse since the MELANI he had before cardiac ablation. burping. coughing could also be related to this. [id number] Lydia hood MD Main Office [address] [address] [place] [address] 08/10/2014 10:28:45 08/10/2014 11:10:19 Shoulder joint pain 866471149 Atrial fibrillation 57294060 reviewed past hx w/ pt. It seems appropriat e for pt to stop eliquis and he will d/w cardio/ [id number] Lydia hood MD Main Office [address] [address] [place] [address] 08/31/2014 14:11:30 08/31/2014 15:01:38 Foot pain 63506130 Allergic rhinitis 22258574 [id number] Lydia hood MD Main Office [address] [address] [place] [address] 01/26/2015 09:39:54 01/26/2015 10:44:10 Adult health examination 028029437 Coronary atherosclerosis 690398614 Unintentio nal weight loss 350146939 I suspect pt needs to eat more hi-protein , hi quality calories but we need to do labs and pt will see GI soon Hyperlipidemia 51813205 Cough 37578530 [id number] Lydia hood MD Main Office [address] [address] [place] [address] 05/02/2016 12:29:30 05/02/2016 13:57:24 Adult health examination 376818554 Z00.00 Atrial fibrillation 4943 6004 I48.91 reviewed past hx w/ pt. It seems appropriat e for pt to stop eliquis and he will d/w cardio/ Coronary atherosclerosis 583650910 I25.84 Essential hypertension 04007240 I10 Fatigue 46739411 R53.83 pt has rare fatigue. he has had wt loss due to reduced caloric intake but if this continues he will ask GI for any input [id number] Lydia hood MD Main Office [address] [address] [place] [address] 04/20/2017 09:12:06 04/20/2017 10:20:38 Adult health examination 358568444 Z00.00 Atrial fibrillation 4943 6004 I48.91 pt will continue anticoagul ation Folliculitis 06221683 L7 3.9 [id number] Lucretia Nicole PA-C Main Office [address] [address] [place] [address] 04/22/2018 08:31:47 04/22/2018 09:46:24 Adult health examination 553114037 Z00.00 Essential hypertension 96226210 I10 stable, cont med as dir Pure hypercholesterolemia 419574599 E78.00 Hepatitis C screening 41 8583776 Z11.59 Cough variant asthma 409 852252 J45.991 has seen pulm in past, pending see a new pulm next week 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 cough variant asthma vs other - htbn is under control, cough likely d/t pnd - also has mild erosion of L nares - will get ENT eval Varicella vaccination 68 737952 Z23 Family his tory of cancer of colon 069727559 Z80.0 next colon is 4.19 Folliculitis 32264110 L7 3.9 cont f/u c derm Impaired f asting glycemia 437365160 R73.01 [id number] Lucretia Nicole PA-C Main Office [address] [facility] [address] [place] [address] 04/29/2018 14:55:22 04/29/2018 16:20:23 Acute pharyngitis 598326357 J02.9 ? d/t loosening of chronic nasal congestion c nasal saline spray - breathing easier thru nares - but now has ST -- likely d/t pnd - rec add prn SW gargles / consider chlorasept ic spray ac meal prn [id number] Huy Lepe MD Main Office [address] [place] [address] 09/08/2018 08:49:01 09/08/2018 10:03:58 Foot pain 05937084 M79.671 check xray to r/o marquez's neuroma, cont to wear sneakers/d r eli's gel insert, and get podiatry eval Pain of le ft shoulder joint 0342061260 2363410 M25.512 h/o trina injxn c neos yrs ago, had trauma few months ago - re-aggrava liat - will send back to ortho [id number] Huy Lepe MD Main Office [address] [facility] [address] [place] [address] 04/25/2019 13:47:10 04/25/2019 15:06:24 Adult health examination 706171070 Z00.00 Essential hypertension 32314728 I10 stable, cont med as dir Pure hypercholesterolemia 197314921 E78.00 nl lipids c card in 6., but card recently changed to crestor d/t myalgias from lipitor Cough variant asthma 409 943453 J45.991 has seen pulm in past, pending see a new pulm later this wk Impotence of organic origin 591639517 N52.9 cont f/u c uro Atrial fibrillation 4943 6004 I48.91 cont f/u c card & EP Obstructiv e sleep apnea syndrome 17059910 G47.33 no tolerate cpap - advised pt to d/w his new pulm later this wk - ? central sleep apnea? Gastroesop hageal reflux disease 899102127 K21.9 neg egd for mohr's, cont h2b Allergic rhinitis 513482 04 J30.9 cont meds as dir chronic pnd/allerg ies, fol by pulm - ? cough variant asthma vs other - htbn is under control, cough likely d/t pnd - also has mild erosion of L nares - will get ENT eval Varicella vaccination 68 682935 Z23 Family his tory of cancer of colon 055991778 Z80.0 next colon is 4.24 Folliculitis 37594302 L7 3.9 cont f/u c derm Impaired f asting glycemia 923536879 R73.01 Foot pain 89050007 M79.6 71 cont f/u c podiatry - ? marquez's neuroma Pain of le ft shoulder joint 4805573307 0299328 M25.512 h/o trina injxn c neos yrs ago, had trauma few months ago - re-aggrava liat - cont f/u c ortho Vitamin D deficiency 347 62264 E55.9 rec 1000 iu supp qd Benign pro static hyperplasia without outflow obstruction 030822133 N40.0 cont f/u c uro - uro checks psa [id number] Marisol allison MD Main Office [address] [facility] [address] [place] [address], [place] [address] 11/21/2019 12:43:01 11/21/2019 14:27:18 Muscle pain 25183985 M79.10 check labs today, call if any worsening or changing, Possible muscle injury kayaking. No exertional sx Neuropathy 657158954 G62 .9 ? neuropathi c pain, trial of gabapentin at night; start with 100 mg, can titrate up to 300md if needed, use sparingly in the day due to side effect of fatigue. Call with update in a few days Pain of mu ltiple joints 21734800 M25.50 [id number] Huy Lepe MD Main Office [address] [facility] [address] [facility] [place] [address] 01/30/2020 10:20:24 01/30/2020 12:01:58 Adult health examination 820798297 Z00.00 Snoring 70702168 R06.83 pending see sleep specialist next month Atrial fibrillation 4943 6004 I48.91 cont f/u c card & EP Essential hypertension 22188179 I10 mildly elevated here and trending that way at home - will increase arb, cont f/u c card - ? if card would prefer to increase hydralazin e instead?? Hyperlipidemia 70948684 E78.5 Impaired f asting glycemia 817309396 R73.01 Cough variant asthma 409 910468 J45.991 stable, cont f/u c pulm Gastroesop hageal reflux disease 595465531 K21.9 neg egd for mohr's, cont h2b Allergic rhinitis 353683 04 J30.9 cont meds as dir, seen by ent Family his tory of cancer of colon 123066829 Z80.0 next colon is 4.24 Benign pro static hyperplasia without outflow obstruction 528091722 N40.0 cont f/u c uro - uro checks psa Pain of le ft shoulder joint 4613634551 1547817 M25.512 h/o trina injxn c neos yrs ago, had trauma few months ago -- cont f/u c ortho Influenza vaccine needed 9198726574 106 Z23 [id number] Huy Lepe MD Tele[facility] [address] [facility] [address] [facility] [place] [address] 03/15/2020 09:32:20 03/15/2020 12:45:03 Cough 23993142 R05 ~ chronic cough - most likely d/t allergy/as thma connection - see below Cough variant asthma 409 247066 J45.991 rec stop zyrtec, rather trial of montelukas t, cont inhalers as dir by pulm Gastroesop hageal reflux disease 720475806 K21.9 neg egd for mohr's, cont h2b as dir [id number] Huy Lepe MD Tele[facility] [address] [facility] [address] [facility] [address] 04/10/2020 11:35:30 04/10/2020 15:28:19 Chronic cough 64578386 R05 x 3 months. last seen by ent 4.20 (rev note) - no sig help c benzonatat e capsules, montelukas t, Asmanex inhaler, fluticason e nasal spray, and ipratropiu m nasal spray -- advised ppi bid last week, but he didn't start yet - see below Gastroesop hageal reflux disease 113955607 K21.9 see above about ppi bid - will get gi eval - fol by Dr. Davey already sent in omeprazole to pharmacy - will re-try bid - but likely they will only cover once/day bc no h/o an ulcer - if so then buy otc omeprazole as well to take the product twice daily Obstructiv e sleep apnea syndrome 04785828 G47.33 no tolerate cpap in past, just had repeat sleep study - cont f/u c sleep med Cough 79574883 R05 ~ chronic cough - will also r/o pna and covid19 - pt will call to see if he can get cxr at [facility] - if not, then will go to [facility] Counseling 234480875 Z71 .9 Health advice, education or counseling done for COVID 19 Exposure t o viral disease 0484317349 83244 Z03.818 [id number] Lucretia Nicole PA-C Main Office [address] [facility] [address] [facility] [address] 10/29/2020 08:55:18 10/29/2020 09:54:25 Strain of abdominal muscle 646708530 S39.011A L oblique m strain - rec hep, prn moist heat, could alt aleve/tyl, prn m relaxer as well Obstructiv e sleep apnea syndrome 78347747 G47.33 no tolerate cpap in past - cont f/u c sleep med - trial c oral appliance / repeat sleep study [id number] Huy Lepe MD Main Office [address] [facility] [address] [place] [address] 02/27/2021 09:17:46 02/27/2021 10:39:16 Adult health examination 554927502 Z00.00 Varicella vaccination 68 151289 Z23 Requires a tetanus booster 565591056 Z23 Influenza vaccine needed 5248813630 106 Z23 Essential hypertension 48961424 I10 bp stable, cont meds as dir Pure hypercholesterolemia 671765357 E78.00 cont med as per card ~ nl lipids 7.21 Atrial fibrillation 4943 6004 I48.91 stable s/p ablation - cont f/u c card & EP prn Benign pro static hyperplasia without outflow obstruction 534001681 N40.0 cont f/u c uro - uro checks psa Cough variant asthma 409 749371 J45.991 resolved Gastroesop hageal reflux disease 252546189 K21.9 stable Obstructiv e sleep apnea syndrome 59737379 G47.33 no tolerate cpap in past - cont f/u c sleep med - cont c oral appliance Impaired f asting glycemia 933766475 R73.01 Administra tion of pneumococcal vaccine 79102987 Z23 Eruption 561316507 R21 on L breast areolar tissue x ~ 2 wks - looks like a few 'alonzo s' - no use of otc products, no gynecomast ia or pus dc noted - no evidence of abscess ---- more so sensitivit y as per pt - trial of bactroban cream - if no sig improvemen t then call us [id number] Marisol Millan-Marybel allison MD Main Office [address] [facility] [address] [place] [address] 03/27/2021 08:46:26 03/27/2021 09:12:10 Administration of pneumococcal vaccine 34291625 Z23 [id number] Huy Lepe MD [facility] [address] [address] [place] [address] 04/16/2021 08:20:18 04/16/2021 15:08:11 Chest pain 42665997 R07.9 x 1, has not returned - [...] pna on that cxr report is exceptiona lladrienne low - most likely was atelectasi s which has resolved since he is asymptomat ic - no need for repeat cxr also - pt apparently had normal stress echo on 04.12 as per card --- cont f/u c card [id number] Huy Lepe MD [facility] h [address] [facility] [address] [facility] [place] [address] 06/11/2021 08:03:34 06/11/2021 11:17:09 Strain of calf muscle 402906035 S86.111A R calf strain last wk, already better as per pt - reviewed how else to stretch - add knee bend to wall stretch to get soleus better, do stair stretch, consider moist heat ac/p stretch for attracting blood flow, cont prn tyl, encouraged to go biking and power walking ac go back to pickleball , use ice p vigorous exercise [id number] Huy Lepe MD Main Office [address] [facility] [address] [facility] [place] [address] 09/09/2021 13:16:09 09/09/2021 14:34:53 Strain of muscle of right groin region 4806683422 9285197 S76.011A ~ 50% better but not resolved - no evidence of inguinal hernia at this time - rec cont hep, moist heat/ hot tub, and add aleve 1-2 tabs 1-2x/day prn Essential hypertension 54727459 I10 bp stable, cont meds as dir, check bmp Right late ral elbow tendinopathy 5741875294 25065 M77.11 mild/mod - rec TE support c activity, wrist splint o/n [id number] Huy Lepe MD [facility] [address] [facility] [address] [place] [address] 10/01/2021 08:19:01 10/01/2021 14:05:01 Seasonal allergic rhinitis 967631700 J30.2 encouraged pt to resume flonase qd - use nasal saline prior and prn as well Sore throat 319769056 J0 2.9 has tested negative to covid x several times -- cont supportive measures prn - SW gargles, tea c honey, lozenges, chlorasept ic see above - advised pt if ST persists into next week despite all of above - then call ENT for re-eval - likely needs laryngosco py Counseling 133725338 Z71 .9 Health advice, education or counseling done for COVID 19 [id number] Campbell Currie MD [facility] [address] [facility] [address] [facility] [place] [address] 11/09/2021 08:56:58 11/13/2021 08:39:09 COVID-19 881102103 U07.1 Tylenol OTC, not to exceed package [...] tmax 103 > go to nearest ED [id number] Huy Lepe MD Main Office [address] [facility] [address] [place] [address] 03/03/2022 09:17:33 03/03/2022 10:27:38 Adult health examination 778657955 Z00.00 had labs 9.20 - nl cbc, lipids, cmp x elevated glucose encouraged pt to get covid and tetanus boosters going to [place] 12.1.22 - 3.15.23 -- will check labs next spring Influenza vaccine needed 2503986359 106 Z23 History of SARS-CoV-2 29 97767639 60254616 Z86.16 7.22 - recovered Essential hypertension 54610886 I10 bp stable but low normal - asymptomat ic, cont meds as dir, check bmp --- if develops orthostasi s then advised pt to call card to back off medication Impaired f asting glycemia 387446078 R73.01 Right late ral elbow tendinopathy 4786705298 85737 M77.11 mild/mod - plays pickle ball - rec TE support c activity, wrist splint o/n --- if worse, then consider ortho eval for trina injxn Atrial fibrillation 4943 6004 I48.91 stable s/p ablation - cont f/u c card & EP prn Gastroesop hageal reflux disease 062030017 K21.9 stable Hyperlipidemia 62099877 E78.5 stable, cont med as dir Seasonal a llergic rhinitis 751415502 J30.2 encouraged pt to resume flonase qd - use nasal saline prior and prn as well, consider claritin d/t recent nasal congestion -- but ? if has cold air rhinitis [id number] José Bassett MD Main Office [address] [facility] [address] [place] [address] 03/22/2022 10:01:32 03/22/2022 10:55:16 Acute pharyngitis 616885039 J02.9 Congestion of nasal sinus 94319033 R09.81 I recommende d that he take mucinex along with the benzonatat e and to continue testing for COVID if his symptoms persist or if he develops new symptoms. [id number] Huy Lepe MD Main Office [address] [facility] [address] [address] [address] 08/14/2022 14:57:32 08/14/2022 16:23:13 Dysuria 49108468 R30.0 SYMPTOMS: burning with urination? yes frequency? [...] notes? Recommende d action Antibiotic treatment Epididymitis 28213380 N4 5.1 no evidence of uti - suspect inflammato ry > infectious etiology given normal urine dipstick (u/a & c&s pending) and no new sexual partners - trial c low dose aleve 1 tab 2x/day c food x several days, rtc if no better next wk Essential hypertension 12383755 I10 bp low normal but asymptomat ic ---- discussed c pt - advised to stop the last med that was added - amlodipine hs - to help prevent orthostasi s --- likely d/t intentiona l wt loss (better diet/more ex lately), also rec increase water intake Requires a tetanus booster 182405328 Z23 [id number] Huy Lepe MD Main Office [address] [facility] [address] [place] [address] 12/01/2022 15:43:59 12/02/2022 14:39:41 Right inguinal hernia 058857567 K40.[address] for further eval, and a general surgery eval - meanwhile consider truss - brittnee c playing pickleball , and avoid heavy lifting [id number] Huy Lepe MD [facility] [address] [facility] [address] [place] [address] 12/09/2022 13:26:33 12/09/2022 15:13:26 Right inguinal hernia 013542980 K40.[address] for further eval, and a general surgery eval - meanwhile consider truss - brittnee c playing pickleball , and avoid heavy lifting 8.23 - reviewed CT c pt - seen by general surgeon earlier today, no note to review yet - encouraged sx, agreed to watchful waiting, cont truss Hyperlipidemia 45081928 E78.5 stable, cont med as dir Impaired f asting glycemia 723701007 R73.01 Fatigue 12550980 R53.83 187100 Huy Lepe MD [facility] h [address] [facility] [address] [place] [address] 01/06/2023 10:19:56 01/06/2023 12:01:53 Neck pain 42230647 M54.2 seen in ER, neg. w/u, sxs resolved --- sounds like he had a pulled muscle, ? trap - would have suspected radicular component if sxs persisted --- if they return - rec prn tyl, prn alt. ice < moist heat - if worse - call us - to consider neck xray Right inguinal hernia [address] for further eval, [...] 01.20.23, just had preop earlier today Hyperlipidemia 37863984 E78.5 stable, cont med as dir check fasting labs before upcoming PE Impaired f asting glycemia 062604698 R73.01 check fasting labs before upcoming PE [id number] Huy Lepe MD Main Office [address] [facility] [address] [place] [address] 01/19/2023 11:18:40 01/19/2023 12:43:55 Cervical radiculopathy 21971962 M54.12 seen in ER, neg. w/u, sxs resolved --- sounds like he had a pulled muscle, ? trap - would have suspected radicular component if sxs persisted --- if they return - rec prn tyl, prn alt. ice < moist heat - if worse - call us - to consider neck xray . - pt had xray thru card last week - will attempt to get card note - found xray report in pvix - trial c gbn and will get pmr eval, also consider warm compress to neck prn, consider tyl or advil prn as well Right inguinal hernia [address] for further eval, and a general surgery eval - meanwhile consider truss - brittnee c playing pickleball , and avoid heavy lifting 8. - reviewed CT c pt - seen by general surgeon earlier today, no note to review yet - encouraged sx, agreed to watchful waiting, cont truss 01.06.23 - pain returned p pickleball - pending surgery 01.20.23, just had preop earlier today 9. - see above, encouraged pt to call surgeon's office to re-schedul e sx, but do so at [facility] where pt would be more comfortabl e (not at [facility]) Fatigue 52729231 R53.83 Impaired f asting glycemia 809214052 R73.01 check fasting labs before upcoming PE Unintentio nal weight loss 111622858 R63.4 wt slowly but surely lowering over time, + change in diet (plant based) but less ex lately d/t hernia - check labslast janae/phq normal - will check again at [facility] next monthcolon oscopy & psa (5.18.23 was 0.5) utd [id number] Huy Lepe MD Main Office [address] [facility] [address] [place] [address] 03/16/2023 13:47:27 03/16/2023 15:21:05 Adult health examination 597149276 Z00.00 Influenza vaccine needed 8817369529 106 Z23 Right inguinal hernia [address] for further eval, and a general surgery eval - meanwhile consider truss - brittnee c playing pickleball , and avoid heavy lifting 8. - reviewed CT c pt - seen by general surgeon earlier today, no note to review yet - encouraged sx, agreed to watchful waiting, cont truss 8. - pain returned p pickleball - pending surgery 01.20.23, just had preop earlier today 9.23 - see above, encouraged pt to call surgeon's office to re-schedul e sx, but do so at [facility] where pt would be more comfortabl e (not at [facility]) 11. - had sx last month, better Cervical radiculopathy 58538337 M54.12 seen in ER, neg. w/u, sxs [...] consider tyl or advil prn as well 11.23 - cont f/u c pmr, just had mri - next f/u tomorrow Atrial fibrillation 4943 6004 I48.91 stable s/p ablation - cont f/u c card & EP prn Benign pro static hyperplasia without outflow obstruction 616561235 N40.0 cont f/u c uro - uro checks psa - was normal a few months Obstructiv e sleep apnea syndrome 41108009 G47.33 no tolerate cpap in past - cont f/u c sleep med - cont c oral appliance 11.23 - didn't tolerate oral appliance, encouraged pt to f/u c sleep med and d/w card re: the importance of this, brittnee re: afib Primary er ectile dysfunction 979154716 N52.9 last used a few yrs ago, requests additional - check c card in a few wks if ok to take - pt does not take nitrates so should be okay Family his tory of cancer of colon 047423894 Z80.0 next colon is 4.24 Hyperlipidemia 13168525 E78.5 stable, cont meds as dir cont f/u c card Essential hypertension 90453365 I10 bp low normal but asymptomat ic ---- discussed c pt - advised to stop the last med that was added - amlodipine hs - to help prevent orthostasi s --- likely d/t intentiona l wt loss (better diet/more ex lately), also rec increase water intake 11.23 - bp stable, cont meds as dir, check bmp in a few months [id number] José Bassett MD [facility] [address] [facility] [address] [place] [address] 07/22/2023 12:57:23 07/22/2023 13:41:22 COVID-19 092528456 U07.1 Hydration, rest, if feeling better quarantine [...] return for worsening. Cough variant asthma 409 586992 J45.991 has not needed his inhaler. [id number] Huy Lepe MD Main Office [address] [facility] [place] [address] 09/16/2023 09:15:14 09/16/2023 10:31:13 Essential hypertension 93020157 I10 bp low normal but asymptomat ic [...] meds as dir Right inguinal hernia [address] for further eval, and a general surgery eval - meanwhile consider truss - brittnee c playing pickleball , and avoid heavy lifting 8.23 - reviewed CT c pt - seen by general surgeon earlier today, no note to review yet - encouraged sx, agreed to watchful waiting, cont truss 8.29.23 - pain returned p pickleball - pending surgery 9., just had preop earlier today 9.23 - see above, encouraged pt to call surgeon's office to re-schedul e sx, but do so at [facility] where pt would be more comfortabl e (not at [place]) 11.23 - had sx last month, better 5.24 - r groin pain since pulled on 40 lb bag of salt last week - pending see gen sx tomorrowad vised pt of groin stretches Atrial fibrillation 4943 6004 I48.91 stable s/p ablation - cont f/u c card & EP prn 5.24 - stable, cont f/u c card Hyperlipidemia 17712918 E78.5 stable, cont meds as dir, cont f/u c card 5.24 - just recently had lipids - will attempt to get results from card Obstructiv e sleep apnea syndrome 77207489 G47.33 no tolerate cpap in past - cont f/u c sleep med - cont c oral appliance 11.23 - didn't tolerate oral appliance, encouraged pt to f/u c sleep med and d/w card re: the importance of this, brittnee re: afib 5.24 - stable, pt states he has mild chetan, and has d/w card Family his tory of cancer of colon 752879940 Z80.0 pending colon 09.24.23 [id number] Huy Lepe MD Main Office [address] [facility] [address] [place] [address] 01/13/2024 12:53:20 01/13/2024 13:58:01 Pre-surgery evaluation 638024480 Z01.818 Partial th ickness rotator cuff tear 577665534 M75.101 Essential hypertension 94379205 I10 bp low normal but asymptomat ic [...] stable, cont f/u c card Coronary atherosclerosis 830690667 I25.10 stable, had recent angiograph y c [facility], cont f/u c card Hyperlipidemia 20109652 E78.5 stable, cont meds as dir, cont f/u c card 5.24 - just recently had lipids - will attempt to get results from card Benign pro static hyperplasia without outflow obstruction 079909421 N40.0 cont f/u c uro - uro checks psa [id number] MONTSERRAT BARKSDALE MD Main Office [address] [place] [address] 03/07/2024 13:14:25 03/07/2024 13:48:38 Folliculitis 32308886 L73.9 - worsening and spreading to chest and shoulders- started patient on keflex BID for 7 days and mupirocin BID- return precaution s given [id number] Huy Lepe MD Main Office [address] [facility] [address] [place] [address] 03/23/2024 09:19:38 03/23/2024 10:38:52 Adult health examination 153970341 Z00.00 Advance di rective discussed with patient 962807457 Z71.89 Partial th ickness rotator cuff tear 214594514 M75.101 Essential hypertension 08337622 I10 bp low normal but asymptomat ic [...] stable, cont f/u c card Coronary atherosclerosis 917983960 I25.10 stable, had recent angiograph y c [facility], cont f/u c card Hyperlipidemia 28962432 E78.5 stable, cont meds as dir, cont f/u c card 5.24 - just recently had lipids - will attempt to get results from card Benign pro static hyperplasia without outflow obstruction 084879505 N40.0 cont f/u c uro - uro checks psa Folliculitis 10639974 L7 3.9 cont f/u c derm Influenza vaccine needed 3835338070 106 Z23 65 YEARS AND OLDER Gastroesop hageal reflux disease 274943456 K21.9 stable on ppi 2x/wkhas had egd's in past - no history of mohr's Family his tory of cancer of colon 989996067 Z80.0 next colon 5.29 Feeling of lump in throat 007635719 R09.89 consider increase ppi - but first increase saline to help c possible pnd - see below Allergic rhinitis 984245 04 J30.9 cont meds as dir - brittnee saline/kecia nase, seen by ent Cough 49509150 R05.9 rare, dry cough x several weeks (more so throat clearing above) - see above - check cxr to r/o pna (low likelihood ) == most likely d/t above, has had this issue in past a few timesrtc if no sig help c above Impaired f asting glycemia 860185101 R73.01 check fasting labs before upcoming PE Vitamin D deficiency 347 41852 E55.9 rec 1000 iu supp qd Skin lesion 31711426 L98 .9 cont f/u c [facility] [id number] Huy Lepe MD Main Office [address] [place] [address] 05/05/2024 13:15:41 05/05/2024 14:17:41 Cough 16714099 R05.9 rare, dry cough x several weeks (more so throat clearing above) - see above - check cxr to r/o pna (low likelihood ) == most likely d/t above, has had this issue in past a few timesrtc if no sig help c abovealso, will give prn tessalon Gastroesop hageal reflux disease 042231116 K21.9 stable on ppi 2x/wkhas had egd's in past - no history of mohr's 05.03 - ? above cough d/t gerd - rec take ppi qd until feeling better, then wean off back to qod / 2x/wk baseline Cough variant asthma 409 785349 J45.991 ? this (cold air rhinitis) vs d/t gerd belowusing flonase and ns spray, but clear nasal dc persiststr ial c adding ipra bromide prnpt going to [place] on .08.02 - if rhinitis stops, then dx of cold air rhinitis is made - so stop above med [id number] Huy Lepe MD Main Office [address] [facility] [address] [place] [address] 09/20/2024 09:48:58 09/20/2024 10:46:04 Hyperlipidemia 50114844 E78.5 stable, cont meds as dir, cont f/u c card 5.24 - just recently had lipids - will attempt to get results from card 5.25 - recheck lipids c cc: card Essential hypertension 11253636 I10 bp low normal but asymptomat ic [...] meds as dir Seasonal a llergic rhinitis 280431106 J30.2 encouraged pt to resume flonase qd - use nasal saline prior and prn as well, consider claritin d/t recent nasal congestion -- but ? if has cold air rhinitis Cough variant asthma 409 165954 J45.991 ? this (cold air rhinitis) vs d/t gerd belowusing flonase and ns spray, but clear nasal dc persiststr ial c adding ipra bromide prnpt going to [place] on 05.13.24 - if rhinitis stops, then dx of cold air rhinitis is made - so stop above med 5.25 - stable Coronary atherosclerosis 000867194 I25.10 stable, had recent angiograph y c C, cont f/u c card q 6 months Atrial fibrillation 4943 6004 I48.91 stable s/p ablation - cont f/u c card & EP prn 5.25 - stable, cont f/u c card Impaired f asting glycemia 972408303 R73.01 717868 check fasting labs before upcoming PE Sea sickness 68902558 T7 5.3XXA 7731673 going on an [employer] cruise in 12.02 - will send in rx for scop patch [id number] Huy Lepe MD Main Office [address] [place] [address] 10/10/2024 09:10:28 10/10/2024 10:03:33 Epidermoid cyst of skin of back 814686878 L72.0 4819875418 offered reassuranc e - next f/u c derm 8.25 for CSEcould try triple abx ointment / warm compress prn Sea sickness 18119407 T7 5.3XXA 1508414 going on an [employer] cruise in 12.02 - will send in rx for scop patch6. - initial script denied by ins, eventually approved - will send new rx Anxiety 94288879 F41.8 7564639 rec mindfulnes s, yoga, david chi, transcende ntal meditation , relaxation response bookf/u if worse [id number] Huy Lepe MD Main Office [address] [address] [place] [address] 11/10/2024 14:10:48 11/10/2024 14:59:38 Erythrocytosis 921180182 D75.1 21086 Hopefully just a spurious measuremen t potentiall y from lab error or being dehydrated . Will screen for polycythem ia vera gene mutation and if present or H/H remain elevated will consult heme. In meantime good hydration practices advised. Obstructiv e sleep apnea syndrome 36783323 G47.33 Based on sleep study from 2019. Pt is completely asymptomat ic and does not have any signs of CHETAN predisposi tion or symptom impact. [id number] José Bassett MD Main Office [address] [address] [place] [address] 12/14/2024 12:44:47 12/14/2024 13:25:47 Postviral cough 078466937 R05.8 4504571 He gets this after most infections . No role for abx. Will treat with nasal sprays and benzonatat e and he will call in 1 week if it is not improving. [id number] Huy Lepe MD Main Office [address] [place] [address] 01/10/2025 09:04:35 01/10/2025 10:04:23 Chronic cough 59955053 R05.3 02667 8.25 - He gets this after most infections . No role for abx. Will treat with nasal sprays and benzonatat e and he will call in 1 week if it is not improving. 01.10.25 - see belowcheck cxr to r/o pna Cough variant asthma 409 750671 J45.991 ? 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 above cough d/t gerd - rec take ppi qd until feeling better, then wean off back to qod / 2x/wk baseline 02.02 - stable, cont [facility] 660609 Huy Lepe MD Main Office [address] [place] [address] 02/06/2025 12:41:03 02/06/2025 13:40:17 Cough variant asthma 123298616 J45.991 ? this (cold air rhinitis) vs [...] pulm eval - last seen by pulm 02.06.25 - nl cxr, pfts, seen by pulm - negative w/ucough better but lingers s/p cold ~ 2 months agolikely has pnd affecting - increase ns spray, cont flonase and ip brom as dir, consider mucinex as well (cannot take sudafed d/t htn - call if develop pur nasal dc - consider abx) Influenza vaccine needed 3121688005 106 Z23 65 YEARS AND OLDER Erythrocytosis 699852003 D75.1 41195 pending see hem/onc on 02.01.25 02.06.25 - rev hem/onc note in pvix - to start phlebotomy q 2 wks at [place] - cont f/u c hem/onc Gastroesop hageal reflux disease without esophagitis 761714205 K21.9 648414 stable on ppi 2x/wkhas had egd's in past - no history of mohr's 12.24 - ? above cough d/t gerd - rec take ppi qd until feeling better, then wean off back to qod / 2x/wk baseline 9.25 - stable, cont ppi 3x/wk (mwf) Essential hypertension 47383181 I10 bp low normal but asymptomat ic [...] meds as dir Impaired f asting glycemia 248173073 R73.01 742070 check labs before upcoming awv Health Concerns Section Related Observation LastModified by Organization Detai ls LastModified Time None Recorded Concern Status LastModified by Organization Details LastModified Time None Recorded Advance Directives Directive N: Payers Insurance Date Sequence Insurance Name Policy Number Policy Marx Covered Member ID Marx Member ID Guarantor Name 02/25/2025 2 [place] [id number] Pipo Vidal [id number] Pipo Vidal 02/06/2025 1 [place] [employer] Pipo Vidal [id number] Pipo Vidal 03/16/2023 1 [facility] [id number] Pipo Vidal [id number] Pipo Viadl 03/16/2023 1 [place] [facility] Pipo Vidal [id number] Pipo Vidal 03/16/2023 1 [employer] [id number] Pipo Vidal [id number] Pipo Vidal 03/16/2023 1 [facility] CARE - [employer] (EPO) [id number] Pipo Vidal [id number] Pipo Vidal Notes Date Note Type Note Provider Name and Address Organization Details Recorded Time 10/10/2024 text/html pt has bump on his back, in between shoulder blades, ? ingrown hair or sebaceous cyst/blackhead has had x several wks/monthswife has tried to pop it - very little comes outno f/c, active pus dclast seen by derm several wks ago - next cse in 8 Lucretia Nicole PA-C [address] [address], [place], [address], [facility] 10/10/2024 10:08:58 11/10/2024 text/html Had an elevated [...] blood cell lines impacted. Huy Lepe MD [address] [address], [place], [address], [facility] 11/10/2024 15:11:51 12/14/2024 text/html ROS as noted in the HPI He was on an [employer] cruise a few weeks ago and had [...] Denies any wheezing. José Bassett MD [address] [address], [place], [address], [facility] 12/14/2024 14:22:23 01/10/2025 text/html ROS as noted in the HPI 8.. - He was on an [employer] cruise a few weeks ago and had [...] seen by pulm 2019 Lucretia Nicole PA-C [address] [address], [place], [address], [facility] [place] 01/10/2025 10:02:45 02/06/2025 text/html ROS as noted in the HPI 8..25 - He was on an [employer] cruise a few weeks ago and had [...] cough variant asthmalast seen by pulm 2019 02.06.25 - here for ~1 month f/u visithad nl cxr and pft - seen by pulm earlier today - negative eval, awaiting noterev hem/onc note in pvix - to start phlebotomy q 2 wks at [place] Lucretia Nicole PA-C [address] [address], [place], [address], [facility] 02/06/2025 13:43:05 Data Portability Created on: March 23, 2025 Pipo Vidal .[id number] : 1955 Sex: Male Author Organization [facility], Main Office Address [address] [facility] [address] [place] [address] Care Team Providers Care Nfl Player Name Role Phone SWETHA YOUNG OTHER MERRICK PICKERING Technical Maintenance Technician SWETHA YOUNG Urologist BELINDA DAVEY Cooperage Shop Supervisor LUCRETIA NICOLE Primary Care Provider KARLOS HARO OTHER [phone] [facility] ([place] [facility]) Orthopedic Surgeon PAUL HENNING Heading Pinner MENA BARNEY Beet Worker LEANNE KAN Referring Provider [phone] Assessment No assessment recorded. Plan of Treatment Reminders Order Date Submit Date Provider Last Modified By Organization Details Last Modified Time Details Appointments [email or web address] 2024 08:45A M Lucretia Nicole PACindy Not available Not available Not available Lab [...] referral 2024 025 AJAY Ulrich MD, [address] [facility], [place], [address], 02/06/2025 19:58:51 Procedures None recorded. Surgeries None recorded. Imaging PFT, complete [email or web address] ([facility]), [address] [place], [address], 01/12/2025 15:45:43 XR, chest, 2 view 2024 025 [facility], [address] [place], [address], 01/10/2025 15:31:[address] 10 mg tablet 2024 025 [email or web address] [facility]/Pharmacy #[id number], [address] [facility], [place], [address], 02/06/2025 12:54:23 benzonata te 200 mg capsule 2024 025 [facility] [address] [place], [address], 12/31/2024 05:01:29 ipratropi um bromide 21 mcg (0.03 %) nasal spray 2024 025 [facility] [address] [place], [address], 12/14/2024 14:09:48 scopolami ne 1 mg over 3 days transderm al patch 2024 025 [facility] [address] [place], [address], 10/24/2024 05:01:47 Patient Targets Encounter Date Encounter Id Patient Goals Patient Target Last Modified By Organization Details Last Modified Time 02/06/2025 [id number] [facility] goal of Blood Pressure 140 / 90 Not available Not available Not available 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 pmadden Not available 10/10/2024 10:07:26 11/10/2024 [id number] polycythemia: care instructions cameron Not available 11/10/2024 14:56:30 01/10/2025 [id number] Patient will follow up and keep appointment as scheduled. pmadden Not available 01/10/2025 09:55:16 02/06/2025 [id number] Medications (OTC, herbal therapies, supplements) reviewed and reconciled with patient and or caregiver, including potential side effects, drug interactions, instructions, and the consequences of not taking medication. Reviewed potential barriers to medication adherence, such as side effects from medication or cost of medication. pmadden Not available 02/06/2025 13:28:56 Reason for Referral Credit Analysis Manager Referral for C ough variant asthma Referring Physician: Lucretia Nicole, Internal Medicine, Encounter Date: 01/10/2025 Results Created Date Observation Date Name Description Value Unit Range Abnormal Flag Note LastModifiedBy Organization Detail LastModifiedTime 11/10/1911/10/2024 VITAM IN D, 25-HY DROXY vitamin D, 25-hydroxy 39.7 NG/mL 30.0-1 00.0 Vitam in D defic iency has been defin ed by the Insti tute of Medic ine and an Endoc rine Socie ty pract ice guide line as a level of serum 25-OH vitam in D less than 20 ng/mL (1,2) . The Endoc rine Socie ty went on to furth er defin e vitam in D insuf ficie ncy as a level betwe en 21 and 29 ng/mL (2). 1. IOM (Inst itute of Medic ine). 2010. Dieta ry refer ence aracelis es for calci um and D. Jacqueline connors [place]: The Natio nal Acade [facility] Press . 2. Beverley hernandez MF, Javier tracey [place], Mahnaz off-F errerik i GOLD, et al. Evalu ation , treat ment, and preve ntion of vitam in D defic iency : an Endoc rine Socie ty clini dasia pract ice guide line. JCEM. 2010; 96(7) :1911 -30. Not Available [facility] ([facility][1] [facility]) [address] [facility], [place], [address], 11/10/2024 06:08:06 11/10/1911/10/2024 CBC, PLATE LET, NO DIFFE RENTI AL WBC 5.8 x10e3 /uL 3.4-10 .8 normal Not Available [facility] ([facility]) [address] [place], [address], 11/10/2024 06:08:07 11/10/19 25 11/10/2024 CBC, PLATE LET, NO DIFFE RENTI AL RBC 6.83 x10e6 /uL 4.14-5 .80 above high normal Not Available [facility] ([facility]) [address] [facility], [place], [address], 11/10/2024 06:08:07 11/10/1911/10/2024 CBC, PLATE LET, NO DIFFE RENTI AL hemoglobin 18.9 g/dL 13.0-1 7.7 above high normal Not Available [facility] ([facility]) [address] [place], [address], 11/10/2024 06:08:07 11/10/1911/10/2024 CBC, PLATE LET, NO DIFFE RENTI AL hematocrit 60.4 % 37.5-5 1.0 above high normal Not Available [facility] ([facility]) [address] [place], [address], 11/10/2024 06:08:07 11/10/1911/10/2024 CBC, PLATE LET, NO DIFFE RENTI AL MCV 88 fL 79-97 normal Not Available [facility] ([facility]) [address] [place], [address], 11/10/2024 06:08:07 11/10/1911/10/2024 CBC, PLATE LET, NO DIFFE RENTI AL MCH 27.7 pg 26.6-3 3.0 normal Not Available [facility] ([facility]) [address] [place], [address], 11/10/2024 06:08:07 11/10/1902 1211/10/2024 CBC, PLATE LET, NO DIFFE RENTI AL MCHC 31.3 g/dL 31.5-3 5.7 below low normal Not Available [facility] ([facility]) [address] [facility], [place], [address], 11/10/2024 06:08:07 11/10/19 25 11/10/2024 CBC, PLATE LET, NO DIFFE RENTI AL RDW 16.8 % 11.6-1 5.4 above high normal Not Available [facility] ([facility]) [address] [facility], [place], [address], 11/10/2024 06:08:07 11/10/19 25 11/10/2024 CBC, PLATE LET, NO DIFFE RENTI AL platelets 287 x10e3 /uL 150-45 0 normal Not Available [facility] ([facility]) [address] [place], [address], 11/10/2024 06:08:07 11/10/19 25 11/10/2024 CBC, PLATE LET, NO DIFFE RENTI AL NRBC DOCK BOSS Not Available [facility] ([facility]) [address] [place], [address], 11/10/2024 06:08:07 11/10/19 25 11/10/2024 COMP. METAB OLIC PANEL (14) glucose 88 mg/dL 70-99 normal Not Available [facility] ([facility]) [address] [place], [address], 11/10/2024 08:08:19 11/10/19 25 11/10/2024 COMP. METAB OLIC PANEL (14) BUN 22 mg/dL 8-27 normal Not Available [facility] ([facility]) [address] [place], [address], 11/10/2024 08:08:19 11/10/19 25 11/10/2024 COMP. METAB OLIC PANEL (14) creatinine 0.91 mg/dL 0.76-1 .27 normal Not Available [facility] ([facility]) [address] [place] [place], [address], 11/10/2024 08:08:19 11/10/19 25 11/10/2024 COMP. METAB OLIC PANEL (14) eGFR 90 mL/mi n/1.7 3 >59 normal Not Available [facility] ([facility]) [address] [place] [place], [address], 11/10/2024 08:08:19 11/10/19 25 11/10/2024 COMP. METAB OLIC PANEL (14) BUN/creatini ne ratio 24 10-24 normal Not Available [facility] ([facility]) [address] [place] [place], [address], 11/10/2024 08:08:19 11/10/19 25 11/10/2024 COMP. METAB OLIC PANEL (14) sodium 140 mmol/ L 134-14 4 normal Not Available [facility] ([facility]) [address] [place] [place], [address], 11/10/2024 08:08:19 11/10/19 25 11/10/2024 COMP. METAB OLIC PANEL (14) potassium 4.7 mmol/ L 3.5-5. 2 normal Not Available [facility] ([facility]) [address] [place] [place], [address], 11/10/2024 08:08:19 11/10/19 25 11/10/2024 COMP. METAB OLIC PANEL (14) chloride 105 mmol/ L 96-106 normal Not Available [facility] ([facility]) [address] [place] [place], [address], 11/10/2024 08:08:19 11/10/19 25 11/10/2024 COMP. METAB OLIC PANEL (14) carbon dioxide, total 20 mmol/ L 20-29 normal Not Available [facility] ([facility]) [address] [place], [address], 11/10/2024 08:08:19 11/10/19 25 11/10/2024 COMP. METAB OLIC PANEL (14) calcium 9.2 mg/dL 8.6-10 .2 normal Not Available [facility] ([facility]) [address] [place], [address], 11/10/2024 08:08:19 11/10/19 25 11/10/2024 COMP. METAB OLIC PANEL (14) protein, total 6.5 g/dL 6.0-8. 5 normal Not Available [facility] ([facility]) [address] [place], [address], 11/10/2024 08:08:19 11/10/19 25 11/10/2024 COMP. METAB OLIC PANEL (14) albumin 4.3 g/dL 3.8-4. 8 normal Not Available [facility] ([facility]) [address] [place], [address], 11/10/2024 08:08:19 11/10/19 25 11/10/2024 COMP. METAB OLIC PANEL (14) globulin, total 2.2 g/dL 1.5-4. 5 Not Available [facility] ([facility]) [address] [place] [place], [address], 11/10/2024 08:08:19 11/10/19 25 11/10/2024 COMP. METAB OLIC PANEL (14) bilirubin, total 0.8 mg/dL 0.0-1. 2 normal Not Available [facility] ([facility]) [address] [place] [place], [address], 11/10/2024 08:08:19 11/10/19 25 11/10/2024 COMP. METAB OLIC PANEL (14) alkaline phosphatase 74 IU/L 44-121 normal Not Available [facility] ([facility]) [address] [place] [place], [address], 11/10/2024 08:08:19 11/10/19 25 11/10/2024 COMP. METAB OLIC PANEL (14) AST (SGOT) 34 IU/L 0-40 normal Not Available [facility] ([facility]) [address] [place], [address], 11/10/2024 08:08:19 11/10/19 25 11/10/2024 COMP. METAB OLIC PANEL (14) ALT (SGPT) 32 IU/L 0-44 normal Not Available [facility] ([facility]) [address] [place], [address], 11/10/2024 08:08:19 11/10/19 25 11/10/2024 LIPID PANEL cholesterol, total 109 mg/dL 100-19 9 normal Not Available [facility] ([facility]) [address] [place], [address], 11/10/2024 08:08:20 11/10/19 25 11/10/2024 LIPID PANEL triglyceride s 72 mg/dL 0-149 normal Not Available [facility] ([facility]) [address] [place], [address], 11/10/2024 08:08:20 11/10/19 25 11/10/2024 LIPID PANEL HDL cholesterol 42 mg/dL >39 normal Not Available [facility] ([facility]) [address] [place], [address], 11/10/2024 08:08:20 11/10/19 25 11/10/2024 LIPID PANEL VLDL cholesterol dasia 15 mg/dL 5-40 Not Available [facility] ([facility]) [address] [place], [address], 11/10/2024 08:08:20 11/10/19 25 11/10/2024 LIPID PANEL LDL chol calc ([facility]) 52 mg/dL 0-99 Not Available [facility] ([facility]) [address] [place], [address], 11/10/2024 08:08:20 11/10/1911/10/2024 LIPID PANEL LDL calc comment: DOCK BOSS Not Available [facility] ([facility]) [address] [facility], [place], [address], 11/10/2024 08:08:20 11/10/19 25 11/10/2024 CK, TOTAL creatine kinase,total 122 U/L 41-331 normal Not Available [facility] ([facility]) [address] [place], [address], 11/10/2024 08:08:21 11/10/19 25 11/09/2024 HEMOG LOBIN A1C hemoglobin A1C 5.6 % 4.8-5. 6 normal Predi abete s: 5.7 - 6.4 Diabe kavita: >6.4 Glyce jaime contr ol for adult s with diabe kavita: <7.0 Not Available [facility] ([facility]) [address] [facility], [place], [address], 11/10/2024 08:08:22 11/11/19 25 11/11/2024 CBC WITH DIFFE RENTI AL/PL ATELE T WBC 6.7 x10e3 /uL 3.4-10 .8 normal Not Available [facility] ([facility]) [address] [place], [address], 11/16/2024 10:06:16 11/11/19 25 11/11/2024 CBC WITH DIFFE RENTI AL/PL ATELE T RBC 6.41 x10e6 /uL 4.14-5 .80 above high normal Not Available [facility] ([facility]) [address] [place], [address], 11/16/2024 10:06:16 11/11/19 25 11/11/2024 CBC WITH DIFFE RENTI AL/PL ATELE T hemoglobin 18.3 g/dL 13.0-1 7.7 above high normal Not Available [facility] ([facility]) [address] [place], [address], 11/16/2024 10:06:16 11/11/19 25 11/11/2024 CBC WITH DIFFE RENTI AL/PL ATELE T hematocrit 56.8 % 37.5-5 1.0 above high normal Not Available [facility] ([facility]) [address] [facility], [place], [address], 11/16/2024 10:06:16 11/11/19 25 11/11/2024 CBC WITH DIFFE RENTI AL/PL ATELE T MCV 89 fL 79-97 normal Not Available [facility] ([facility]) [address] [facility], [place], [address], 11/16/2024 10:06:16 11/11/1911/11/2024 CBC WITH DIFFE RENTI AL/PL ATELE T MCH 28.5 pg 26.6-3 3.0 normal Not Available [facility] ([facility]) [address] [place], [address], 11/16/2024 10:06:16 11/11/1911/11/2024 CBC WITH DIFFE RENTI AL/PL ATELE T MCHC 32.2 g/dL 31.5-3 5.7 normal Not Available [facility] ([facility]) [address] [place], [address], 11/16/2024 10:06:16 11/11/19 25 11/11/2024 CBC WITH DIFFE RENTI AL/PL ATELE T RDW 14.9 % 11.6-1 5.4 Not Available [facility] ([facility]) [address] [place], [address], 11/16/2024 10:06:16 11/11/19 25 11/11/2024 CBC WITH DIFFE RENTI AL/PL ATELE T platelets 302 x10e3 /uL 150-45 0 normal Not Available [facility] ([facility]) [address] [facility], [place], [address], 11/16/2024 10:06:16 11/11/19 25 11/11/2024 CBC WITH DIFFE RENTI AL/PL ATELE T neutrophils 67 % not estab. normal Not Available [facility] ([facility]) [address] [facility], [place], [address], 11/16/2024 10:06:16 11/11/19 25 11/11/2024 CBC WITH DIFFE RENTI AL/PL ATELE T lymphs 21 % not estab. normal Not Available [facility] ([facility]) [address] [facility], [place], [address], 11/16/2024 10:06:16 11/11/19 25 11/11/2024 CBC WITH DIFFE RENTI AL/PL ATELE T monocytes 9 % not estab. normal Not Available [facility] ([facility]) [address] [facility], [place], [address], 11/16/2024 10:06:16 11/11/19 25 11/11/2024 CBC WITH DIFFE RENTI AL/PL ATELE T eos 2 % not estab. normal Not Available [facility] ([facility]) [address] [place], [address], 11/16/2024 10:06:16 11/11/19 25 11/11/2024 CBC WITH DIFFE RENTI AL/PL ATELE T basos 1 % not estab. normal Not Available [facility] ([facility]) [address] [place], [address], 11/16/2024 10:06:16 11/11/19 25 11/11/2024 CBC WITH DIFFE RENTI AL/PL ATELE T immature cells DOCK BOSS Not Available [facility] ([facility]) [address] [place], [address], 11/16/2024 10:06:16 11/11/19 25 11/11/2024 CBC WITH DIFFE RENTI AL/PL ATELE T neutrophils (absolute) 4.6 x10e3 /uL 1.4-7. 0 normal Not Available [facility] ([facility]) [address] [place], [address], 11/16/2024 10:06:16 11/11/19 25 11/11/2024 CBC WITH DIFFE RENTI AL/PL ATELE T lymphs (absolute) 1.4 x10e3 /uL 0.7-3. 1 normal Not Available [facility] ([facility]) [address] [place], [address], 11/16/2024 10:06:16 11/11/19 25 11/11/2024 CBC WITH DIFFE RENTI AL/PL ATELE T monocytes(ab solute) 0.6 x10e3 /uL 0.1-0. 9 normal Not Available [facility] ([facility]) [address] [place], [address], 11/16/2024 10:06:16 11/11/19 25 11/11/2024 CBC WITH DIFFE RENTI AL/PL ATELE T eos (absolute) 0.1 x10e3 /uL 0.0-0. 4 normal Not Available [facility] ([facility]) [address] [place], [address], 11/16/2024 10:06:16 11/11/19 25 11/11/2024 CBC WITH DIFFE RENTI AL/PL ATELE T baso (absolute) 0.1 x10e3 /uL 0.0-0. 2 normal Not Available [facility] ([facility]) [address] [place], [address], 11/16/2024 10:06:16 11/11/19 25 11/11/2024 CBC WITH DIFFE RENTI AL/PL ATELE T immature granulocytes 0 % not estab. Not Available [facility] ([facility]) [address] [facility], [place], [address], 11/16/2024 10:06:16 11/11/19 25 11/11/2024 CBC WITH DIFFE RENTI AL/PL ATELE T immature grans (abs) 0.0 x10e3 /uL 0.0-0. 1 Not Available [facility] ([facility]) [address] [facility], [place], [address], 11/16/2024 10:06:16 11/11/19 25 11/11/2024 CBC WITH DIFFE RENTI AL/PL ATELE T NRBC DOCK BOSS Not Available [facility] ([facility]) [address] [facility], [place], [address], 11/16/2024 10:06:16 11/11/19 25 11/11/2024 CBC WITH DIFFE RENTI AL/PL ATELE T hematology comments: DOCK BOSS Not Available [facility] ([facility]) [address] [facility], [place], [address], 11/16/2024 10:06:16 11/11/19 25 11/10/2024 JAK2 MUTAT ION THIAGO SIS, QUAL background: Commen t JAK2 is a cytop lasmi c tyros ine kinas e with a bahena role in signa l trans ducti on from multi ple hemat opoie tic growt 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 A point mutat ion withi n [...] t V617F . The ABI79 00 Absol stockbridge Quant itati on softw are will jamie [...] ders. Ted t. 2004Jul 27 ; 365(3 632): 1054- 1061. Torito Ghosh, Ravin V, Le Hortencia ic MADDISON. A uniqu e clona l JAK2 mutat ion leadi ng to const ituti ve signa ling cause s polyc ythae jameel vera. Natur e. 2004Sep 05; 434(1 120): 1144- 1148. Brian ariza R, Saravanan figueroa F, Antonella , et al. A gain- of-fu nctio n mutat ion of JAK2 in myelo proli ferat bryan disor ders. N Engl J Med. 2004Sep 05; 352(1 7):17 79-17 90. Not Available [facility] ([facility]) [address] [facility], [place], [address], 11/16/2024 10:06:17 11/11/19 25 11/16/2024 JAK2 MUTAT ION THIAGO SIS, QUAL jak2 v617f mutation detection Commen t abnormal Resul t: POSIT BRYAN for the detec tion of the V617F mutat ion. Inter preta tion: The assay detec liat the prese nce of a G to T nucle otide barber e encod ing the V617F mutat ion withi n JAK2. Inter preta tion of this resul t shoul d be made in the ammon xt of other clini dasia, morph ologi c, and cytog eneti c findi ngs. Not Available [facility] ([facility]) [address] [facility], [place], [address], 11/16/2024 10:06:17 11/11/1911/16/2024 JAK2 MUTAT ION THIAGO SIS, QUAL director review: Commwisam t Techn ical Portia nent [facility] Profe ssion al Portia nent perfo rmed by: Beverly Vaughn, PhD, FAC Dire tor, [facility] YWYUD [address] Res[facility] [phone] This test was devel oped and its perfo rmanc e venkata cteri stics deter mined by [employer] . It has not been clear ed or appro yair by the Food and Drug Admin istra tion. Not Available [facility] ([facility]) [address] [facility], [place], [address], 11/16/2024 10:06:17 11/11/1911/11/2024 ERYTH ROPOI ETIN (EPO) , SERUM erythropoiet in 0.6 mIU/m L 2.6-18 .5 below low normal Beckm an Coult er UniCe l DxI 800 Immun oassa y Syste m Value s obtai [place] with diffe rent assay metho ds or kits canno t be used inter elisabeth valdez . Resul ts canno t be inter prete d as absol stockbridge evide nce of the prese nce or absen ce of malig nant disea se. Not Available [facility] ([facility]) [address], [place], [address], 11/16/2024 10:06:17 11/11/19 25 11/11/2024 MARVIN TIN ferritin 26 NG/mL 30-400 below low normal Not Available [facility] ([facility]) [address] [facility], [place], [address], 11/16/2024 10:06:18 11/11/1911/11/2024 RETIC ULOCY TE COUNT reticulocyte count 1.4 % 0.6-2. 6 Not Available [facility] ([facility]) [address], [place], [address], 11/16/2024 10:06:19 01/11/2001/10/2025 XR, chest , 2 view Chest 2 Views Fronta l and Lat Reason : cough / COMPAR ERNESTO: 2023 FINDIN GS: LINES AND TUBES: None. [...] eviden ce of acute abnorm ality. WSN: [id number] Orderi ng Physic alfonso: Nav Nicole Dictat ed By: Ruslan Olea MD Dictat ed Date/T destinee: 3:28 pm Review ed By: Ruslan Olea MD Signed By: Ruslan Olea MD Signed Date/T destinee: 3:28 pm Transc ribed By: SONIYA Transc ribed Date/T destinee: 3:28 pm Patien t Class: Outpat ient [facility] (Out[facility] Imaging) [address] , [place], [address], 02/06/2025 13:05:42 02/02/2001/27/2025 PFT, compl ete No observ ation record ed. [facility] In[facility] [address] [place], [address], 02/23/2025 10:09:25 Result Notes Documentation Provider Name [...] IMPRESSION: No evidence of acute abnormality. WSN: [id number] Ordering Physician: Lucretia Nicole Dictated By: Steve Olea MD Dictated Date/Time: 01/10/25 3:28 pm Reviewed By: Steve Olea MD Signed By: Steve Olea MD Signed Date/Time: 01/10/25 3:28 pm Transcribed By: SONIYA Transcribed Date/Time: 01/10/25 3:28 pm Patient Class: Outpatient Lucretia Nicole PA-C [address] [address], [place], [address], [facility] 02/06/2025 13:05:42 Problems Name Problem SNOMED Code Status Onset Date Resolution Date Notes Provider Name and Address Organization Details Recorded Time Cough 26564935 Completed 12/01/2016 Lucía velasquez [facility] 7 10:02:12 Shoulder joint pain 475644459 Completed 12/01/2016 Lucía velasquez [facility] 7 10:02:46 Foot pain 36313703 Completed 12/01/2016 Lucía velasquez [facility] 7 10:02:42 Allergic rhinitis 03464159 Active Not Available [facility] 16:53:00 Unintent ional weight loss 340744675 Completed 01/13/2024 Lucretia Nicole PA-C [address] [facility] [address], [place], [address] , [facility] 4 17:27:09 Hyperlip idemia 43126854 Active Not Available [facility] 1 16:53:00 Suspecte d COVID-19 472753586 Completed 10/24/2020 Removal Reason: Problem added by user [email or web address] from the COVID-19 watch flag Isi Ladd eva, [facility] 1 08:38:17 Elevated level of transami nase and lactic acid dehydrog enase 211407836 Completed 201112/19/2013 RECORDED 04/07/20 12 11:24AM BY CLAY MILLS MA, ANNOTATI ON/ADDEN DUM Not Available [facility] 4 05:14:08 Elevated level of transami nase and lactic acid dehydrog enase 410133884 Completed 201111/22/2013 RECORDED 04/07/20 12 11:24AM BY CLAY MILLS MA, ANNOTATI ON/ADDEN DUM Not Available [facility] 4 13:30:55 Patient status finding [id number] Completed 201212/19/2013 RECORDED 08/03/19 13 8:58AM BY CLAY MILLS MA, ANNOTATI ON/ADDEN DUM Lucía velasquez, [facility] 7 10:02:22 Contusio n of chest 33446683 Completed 201212/19/2013 IMPRESSI ON: CONTUSIO N VS [...] MILLS MA, ANNOTATI ON/ADDEN DUM Not Available [facility] 4 05:14:08 Patient status finding [id number] Completed 201211/22/2013 RECORDED 08/03/19 13 8:58AM BY CLAY MILLS MA, ANNOTATI ON/ADDEN DUM Lucía velasquez, [facility] 7 10:02:22 Contusio n of chest 45667985 Completed 201211/22/2013 IMPRESSI ON: CONTUSIO N VS [...] 08/03/19 13 8:58AM BY CLAY MILLS MA, GUICHOATI ON/ADDEN DUM Not Available [facility] 4 13:30:56 Benign neoplasm of colon 31193215 Completed 201212/19/2013 RECORDED 09/10/19 13 2:58PM BY CHARU CASE MA, ANNOTATI ON/ADDEN DUM Not Available [facility] 4 05:14:08 Cough 52372973 Completed 201212/19/2013 RECORDED 09/10/19 13 2:58PM BY CHARU CASE MA, ANNOTATI ON/ADDEN DUM Lucía velasquez, [facility] 7 10:02:12 Chronic rhinitis 35787897 Completed 201212/19/2013 RECORDED 09/10/19 13 2:58PM BY CHARU CASE MA, ANNOTATI ON/ADDEN DUM Not Available [facility] 4 05:14:08 Benign neoplasm of colon 87222869 Completed 201211/22/2013 RECORDED 09/10/19 13 2:58PM BY CHARU CASE MA, GUICHOATI ON/ADDEN DUM Not Available [facility] 4 13:30:55 Cough 98278260 Completed 201211/22/2013 RECORDED 09/10/19 13 2:58PM BY CHARU CASE MA, ANNOTATI ON/ADDEN DUM Lucía velasquez MA [facility] 7 10:02:12 Chronic rhinitis 49566901 Completed 201211/22/2013 RECORDED 09/10/19 13 2:58PM BY CHARU CASE MA, ANNOTATI ON/ADDEN DUM Not Available [facility] 4 13:30:56 Influenz a vaccine needed 67899398997 06 Completed 201212/19/2013 RECORDED 01/21/20 13 8:42AM BY IGNACIA MELGOZA MA, OFFICE VISIT Not Available [facility] 4 05:14:08 Influenz a vaccine needed 64675589840 06 Completed 201211/22/2013 RECORDED 01/21/20 13 8:42AM BY IGNACIA MELGOZA MA, OFFICE VISIT Not Available [facility] 4 13:30:55 Adult health examinat ion Completed 201312/19/2013 RECORDED 09/22/19 14 11:20AM BY CLAY MILLS MA, CATALINA ON/ADDEN DUM Not Available [facility] 4 05:14:08 Screenin g for malignan t neoplasm of colon Completed 201312/19/2013 RECORDED 09/22/19 14 11:20AM BY CLAY MILLS MA, ANNOTATI ON/ADDEN DUM Not Available [facility] 4 05:14:08 Laborato ry procedur e performe d 784641315 Completed 201312/19/2013 RECORDED 09/22/19 14 11:20AM BY CLAY MILLS MA, ANNOTATI ON/ADDEN DUM Not Available [facility] 4 05:14:08 Adult health examinat ion Completed 201311/22/2013 RECORDED 09/22/19 14 11:20AM BY CLAY MILLS MA, ANNOTATI ON/ADDEN DUM Not Available [facility] 4 13:30:54 Screenin g for malignan t neoplasm of colon Completed 201311/22/2013 RECORDED 09/22/19 14 11:20AM BY CLAY MILLS MA, ANNOTATI ON/ADDEN DUM Not Available [facility] 4 13:30:55 Laborato ry procedur e performe d 086338007 Completed 201311/22/2013 RECORDED 09/22/19 14 11:20AM BY CLAY MILLS MA, ANNOTATI ON/ADDEN DUM Not Available [facility] 4 13:30:56 Follow-u p encounte r Completed 201312/19/2013 RECORDED 09/24/19 14 10:56AM BY SAHARA GONZALEZ I, ANNOTATI ON/ADDEN DUM Not Available [facility] 4 05:14:08 Coronary atherosc lerosis 516041618 Active 2013 Not Available [facility] 1 16:53:00 Follow-u p encounte r Completed 201311/22/2013 RECORDED 09/24/19 14 10:56AM BY GUICHO BEAVERSATI ON/ADDEN DUM Not Available [facility] 4 13:30:55 Impotenc e of organic origin Active 2013 Not Available [facility] 1 16:53:00 [facility] hyperten randall 54251019 Active 2013 Not Available [facility] 1 16:53:00 Gastroes ophageal reflux disease 159840860 Completed 201302/06/2025 Lucretia Nicole PA-C [address] [facility] [address], [place], [address] , [facility] 5 13:07:46 Pure hypercho lesterol emia 167150623 Active 2013 Not Available [facility] 16:53:00 Patient status finding [id number] Completed 201312/01/2016 RECORDED 09/24/19 14 10:56AM BY SAHARA GONZALEZ I, OFFICE VISIT [facility] 10:02:22 Obstruct bryan sleep apnea syndrome 04622703 Active 2013 Not Available [facility] 16:53:00 Atrial fibrilla tion 66954824 Active 2013 Not Available [facility] 16:53:00 Follicul itis 84654496 Active 2017 Not Available [facility] 16:53:00 Family history of cancer of colon 545751207 Active 2017 Not Available [facility] 16:53:00 Cough variant asthma 332253585 Active 2017 Not Available [facility] 16:52:59 Benign prostati c hyperpla nissa without outflow obstruct ion 168720291 Active 2019 Not Available [facility] 16:53:00 Pain of left shoulder joint 87355640646 857380 Active 2019 Not Available [facility] 16:53:00 Seasonal allergic rhinitis 016002236 Active 2021 Lucretia Nicole PA-C [address] [facility], [place], [address] , [facility] 2 10:15:35 Right lateral elbow tendinop athy 00533205902 9107 Active 2021 Lucretia Nicole PA-C [address] [facility], [place], [address] , [facility] 2 10:15:32 Right inguinal hernia 962097206 Active 2022 Lucretia Nicole PA-C [address] [facility] [place], [address] , [facility] 3 17:13:39 Cervical radiculo shubham 51276522 Active 2022 Lucretia Nicole PA-C [address] [facility], [place], [address] , [facility] 3 13:00:06 Primary erectile dysfunct ion 087764814 Active 2022 Lucretia Nicole PA-C [address], [place], [address] , [facility] 3 19:25:33 COVID-19 [id number] Completed 202309/16/2023 Ignacia lyn MA null, [facility] 4 09:46:28 Skin lesion 42146982 Active 2023 Lucretia Nicole PA-C [address], [place], [address] , [facility] 4 10:35:30 Epidermo id cyst of skin of back 633188792 Active 2024 Lucretia Nicole PA-C [address] [facility] [address], [place], [address] , [facility] 5 10:04:09 Erythroc ytosis 059395419 Active 2024 Huy Lepe MD [address] [facility] [address], [place], [address] , [facility] 5 14:51:27 Gastroes ophageal reflux disease without esophagi tis 569741324 Active 2024 Lucretia Nicole PA-C [id number] [facility] [address], [place], [address] , [facility] 5 10:02:12 Problem Notes None recorded. Procedures Surgical History Date Name Laterality Status Provider Name and Address Organization Details Recorded Time 024 Advanced Care Planning completed Isela Rosales LPN [facility] 03/23/2024 09:40:46 024 complete repair of rotator cuff completed Isela Rosales LPN [facility] 03/23/2024 09:47:47 024 cardiac catheterization completed Cielo Valle [facility] 01/13/2024 10:43:03 024 Colonoscopy completed Cielo Valle [facility] 09/24/2023 12:58:34 023 hernia repair completed Cielo Valle [facility] 02/25/2023 08:59:40 023 repair of right inguinal hernia completed Isela Rosales LPN [facility] 03/16/2023 14:39:16 020 Six-Item Cognitive Test completed Linda Langley [facility] 01/30/2020 10:54:35 014 fluoroscopy guided cardiac ablation with contrast completed Ignacia gaines MA [facility] 04/22/2018 08:51:14 014 Endoscopic us exam esoph completed Lorie Shanks [facility] 04/26/2018 11:44:00 001 Angioplasty completed Ignacia gaines MA [facility] 04/22/2018 08:37:36 Imaging Results None recorded. [...]
--- OUTSIDE RECORDS SUMMARY | 2025-03-23 11:17 | XMS_ITS | Continuity of Care Document ---
Author Organization [facility] Len Hutchins 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 Plan of Treatment Reminders Order Date Submit Date Provider Last Modified By Organization Details Last Modified Time Details Appointments PT FOLLOW-UP 2024 10:30A M Julius Florek, PT Not available Not available Not available PT FOLLOW-UP 2024 08:00A M Julius Florek, PT Not available Not available Not available PT FOLLOW-UP 2024 07:00A M Julius Florek, PT Not available Not available Not available PT ANY 30 2024 07:00A M Julius Florek, PT Not available Not available Not available PT FOLLOW-UP 2024 07:30A M Josh Scafuri, PRESS CUTTER Not available Not available Not available PT FOLLOW-UP 2024 01:00P M Julius Florek, PT Not available Not available Not available PT FOLLOW-UP 2024 08:00A M Julius Florek, PT Not available Not available Not available PT FOLLOW-UP 2024 08:00A M Julius Florek, PT Not available Not available Not available PT FOLLOW-UP 2024 07:30A M Julius Florek, PT Not available Not available Not available PT FOLLOW-UP 2024 07:00A M Josh Scafuri, PRESS CUTTER Not available Not available Not available PT FOLLOW-UP 2024 07:30A M Josh Echevarria, PRESS CUTTER Not available Not available Not available PT FOLLOW-UP 2024 07:30A M Julius Tao, PT Not available Not available Not available PT FOLLOW-UP 2024 07:30A M Josh Echevarria, PRESS CUTTER Not available Not available Not available Lab None recorded. Referral physical therapist referral - DIAGNOSIS : Right shoulder impingeme nt; s/p Right subscapul emily repair, SADDCE, biceps tenodesis , ; biceps tenodesis failure @ 2.5 months postop [...] 01/22/2024; biceps tenodesis failure @ 2.5 months kqcveh8j/week x 6 weeksEvaluate and TreatGoal: - Decrease [...] Address Organization Details Recorded Time No complaints [id number] Active Status : 'I'; Not Available [facility] 4 09:12:21 Pain of left shoulder joint [id number] 9109 Active 2020 Status : 'A'; Not Available [facility] 4 11:12:27 Problem Notes None recorded. Procedures Surgical History Date Name Laterality Status Provider Name and Address Organization Details Recorded Time 03/22/20 83163 Therapeutic Exercise (1:1) completed Julius Tao, PT [address], [place], [address], [facility] 03/22/2025 08:11:02 03/22/20 62498: Manual therapy completed Julius Tao PT [address], [place], [address], [facility] 03/22/2025 08:11:02 03/17/20 41921 Therapeutic Exercise (1:1) completed Julius Tao PT [address], [place], [address], [facility] 03/17/2025 03:56:30 03/17/20 96935: Manual therapy completed Julius Tao PT [address], [place], [address], [facility] 03/17/2025 03:56:30 03/14/20 60528 Therapeutic Exercise (1:1) completed Julius Tao PT [address], [place], [address], [facility] 03/14/2025 03:57:28 03/14/20 49271: Manual therapy completed Julius Tao, PT [address], [place], [address], [facility] 03/14/2025 03:57:28 03/10/20 44672 Therapeutic Exercise (1:1) completed Julius Tao, PT [address], [place], [address], [facility] 03/10/2025 08:48:32 03/10/20 91635: Manual therapy completed Julius Tao, PT [address], [place], [address], [facility] 03/10/2025 08:48:42 03/08/20 66627 Therapeutic Exercise (1:1) completed Julius Tao, PT [address], [place], [address], [facility] 03/08/2025 14:53:44 03/08/20 69343: Low complexity PT Eval completed Julius Tao, PT [address], [place], [address], [facility] 03/08/2025 14:53:47 03/08/20 G8420 BMI Normal, No Follow-Up Plan Required completed Julius Tao PT [address], [place], [address], [facility] 03/09/2025 07:01:56 03/08/20 G8427 Current Medication Documented completed Julius Tao, PT [address], [place], [address], [facility] 03/09/2025 07:01:48 05/12/19 44492 Therapeutic Exercise (1:1) completed Julius Tao, PT [address], [place], [address], [facility] 05/12/2024 08:57:53 05/12/19 03144: Manual therapy completed Julius Tao, PT [address], [place], [address], [facility] 05/12/2024 08:57:53 05/09/20 75344 Therapeutic Exercise (1:1) completed Josh Echevarria, PRESS CUTTER [address], [place], [address], [facility] 05/09/2024 08:23:53 05/09/20 71154: Manual therapy completed Josh Echevarria, PRESS CUTTER [address], [place], [address], [facility] 05/09/2024 08:22:09 05/02/20 33972 Therapeutic Exercise (1:1) completed Julius Tao, PT [address], [place], [address], [facility] 05/01/2024 15:44:37 05/02/20 36404: Manual therapy completed Julius Tao, PT [address], [place], [address], [facility] 05/01/2024 15:44:37 04/28/20 00166 Therapeutic Exercise (1:1) completed Julius Tao, PT [address], [place], [address], [facility] 04/28/2024 05:34:40 04/28/20 12992: Manual therapy completed Julius Tao, PT [address], [place], [address], [facility] 04/28/2024 05:34:40 04/26/20 25023 Therapeutic Exercise (1:1) completed Julius Tao, PT [address], [place], [address], [facility] 04/25/2024 16:17:02 04/26/20 79831: Manual therapy completed Julius Tao, PT [address], [place], [address], [facility] 04/25/2024 16:17:02 04/22/20 76565 Therapeutic Exercise (1:1) completed Julius Tao, PT [address], [place], [address], [facility] 04/21/2024 12:52:55 04/22/20 00226: Manual therapy completed Julius Tao, PT [address], [place], [address], [facility] 04/21/2024 12:52:56 04/20/20 32836 Therapeutic Exercise (1:1) completed Julius Tao, PT [address], [place], [address], [facility] 04/20/2024 11:46:40 04/20/20 73841: Manual therapy completed Julius Tao, PT [address], [place], [address], [facility] 04/20/2024 11:46:43 04/14/20 42546 Therapeutic Exercise (1:1) completed Julius Tao, PT [address], [place], [address], [facility] 04/15/2024 11:56:08 04/14/20 28419: Manual therapy completed Julius Tao, PT [address], [place], [address], [facility] 04/15/2024 11:56:00 04/11/20 76569 Therapeutic Exercise (1:1) completed Julius Tao, PT [address], [place], [address], [facility] 04/10/2024 08:24:50 04/11/20 15583: Manual therapy completed Julius Tao, PT [address], [place], [address], [facility] 04/10/2024 08:24:50 04/05/20 76092 Therapeutic Exercise (1:1) completed Julius Tao, PT [address], [place], [address], [facility] 04/05/2024 06:44:04 04/05/20 79752: Manual therapy completed Julius Tao, PT [address], [place], [address], [facility] 04/05/2024 06:44:04 04/01/20 38685 Therapeutic Exercise (1:1) completed Julius Tao, PT [address], [place], [address], [facility] 03/31/2024 15:24:07 04/01/20 83658: Manual therapy completed Julius Tao, PT [address], [place], [address], [facility] 03/31/2024 15:24:07 03/29/20 80611 Therapeutic Exercise (1:1) completed Julius Tao, PT [address], [place], [address], [facility] 03/28/2024 11:04:52 03/29/20 02064: Manual therapy completed Julius Tao, PT [address], [place], [address], [facility] 03/28/2024 11:04:52 03/25/20 84528 Therapeutic Exercise (1:1) completed Josh Echevarria, PRESS CUTTER [address], [place], [address], [facility] 03/25/2024 13:17:55 03/25/20 93066: Manual therapy completed Josh Echevarria, PRESS CUTTER [address], [place], [address], [facility] 03/25/2024 13:17:55 03/23/20 08566 Therapeutic Exercise (1:1) completed Josh Echevarria, PRESS CUTTER [address], [place], [address], [facility] 03/23/2024 11:37:37 03/23/20 40488: Manual therapy completed Josh Echevarria, PRESS CUTTER [address], [place], [address], [facility] 03/23/2024 11:37:37 03/17/20 66706 Therapeutic Exercise (1:1) completed Julius Tao, PT [address], [place], [address], [facility] 03/17/2024 09:34:47 03/17/20 74100: Manual therapy completed Julius Tao, PT [address], [place], [address], [facility] 03/17/2024 07:08:38 03/15/20 10743 Therapeutic Exercise (1:1) completed Julius Tao, PT [address], [place], [address], [facility] 03/15/2024 06:43:43 03/15/20 84700: Manual therapy completed Julius Tao, PT [address], [place], [address], [facility] 03/15/2024 06:43:43 03/09/20 49623 Therapeutic Exercise (1:1) completed Josh Echevarria, PRESS CUTTER [address], [place], [address], [facility] 03/09/2024 14:44:40 03/09/20 78932: Manual therapy completed Josh Echevarria, PRESS CUTTER [address], [place], [address], [facility] 03/09/2024 14:44:40 03/07/20 36545 Therapeutic Exercise (1:1) completed Josh Echevarria, PRESS CUTTER [address], [place], [address], [facility] 03/07/2024 12:35:25 03/07/20 15980: Manual therapy completed Josh Echevarria, PRESS CUTTER [address], [place], [address], [facility] 03/07/2024 12:35:25 03/03/20 42203 Therapeutic Exercise (1:1) completed Josh Echevarria, PRESS CUTTER [address], [place], [address], [facility] 03/03/2024 12:01:17 03/03/20 31437: Manual therapy completed Josh Echevarria, PRESS CUTTER [address], [place], [address], [facility] 03/03/2024 11:54:06 03/01/20 78712 Therapeutic Exercise (1:1) completed Josh Echevarria, PRESS CUTTER [address], [place], [address], [facility] 03/01/2024 11:11:52 03/01/20 14115: Manual therapy completed Josh Echevarria, PRESS CUTTER [address], [place], [address], [facility] 03/01/2024 11:10:49 02/25/20 63138 Therapeutic Exercise (1:1) completed Julius Tao, PT [address], [place], [address], [facility] 02/25/2024 04:53:04 02/25/20 30488: Manual therapy completed Julius Tao, PT [address], [place], [address], [facility] 02/25/2024 04:53:04 02/19/20 67861 Therapeutic Exercise (1:1) completed oJsh Echevarria, PRESS CUTTER [address], [place], [address], [facility] 02/22/2024 10:27:03 02/19/20 88462: Manual therapy completed Josh Echevarria, PRESS CUTTER [address], [place], [address], [facility] 02/22/2024 10:27:03 02/17/20 17188 Therapeutic Exercise (1:1) completed Josh Echevarria, PRESS CUTTER [address], [place], [address], [facility] 02/17/2024 14:59:06 02/17/20 88427: Manual therapy completed Josh Echevarria, PRESS CUTTER [address], [place], [address], [facility] 02/17/2024 14:59:06 02/10/20 77673 Therapeutic Exercise (1:1) completed Julius Tao, PT [address], [place], [address], [facility] 02/10/2024 06:49:45 02/10/20 53470: Manual therapy completed Julius Tao, PT [address], [place], [address], [facility] 02/10/2024 11:48:46 02/08/20 52237 Therapeutic Exercise (1:1) completed Julius Tao, PT [address], [place], [address], [facility] 02/08/2024 18:18:50 02/08/20 24 91464: Low complexity PT Eval completed Julius Tao, PT [address], [place], [address], [facility] 02/08/2024 18:18:55 02/08/20 24 G8420 BMI Normal, No Follow-Up Plan Required completed Julius Tao, PT [address], [place], [address], [facility] 02/08/2024 18:19:10 02/08/20 24 G8427 Current Medication Documented completed Julius Tao, PT [address], [place], [address], [facility] 02/08/2024 18:19:03 01/05/20 24 repair of rotator cuff by suture completed ABRAN HARKINS [facility] 02/05/2024 09:57:23 10/28/19 24 Sports Shoulder completed Jeannie Mena MD [address], [place], [address], [facility] 10/28/2023 15:06:42 01/08/20 17 Other completed ABRAN HARKINS [facility] 01/19/2024 13:37:46 01/10/20 01 Stent completed ABRAN HARKINS [facility] 10/28/2023 14:01:35 hernia repair completed ABRAN HARKINS [facility] 01/19/2024 13:38:06 cardiac catheterization completed ABRAN HARKINS [facility] 01/19/2024 13:38:31 Imaging Results None recorded. [...] Updated DateTime 02/24/2025 182.88 cm 22.4 kg/m2 16682.74 g Imelda Dandy [place] [facility] [place] [facility] 02/24/2025 08:59:40 Social History Question Answer Notes LastModified by [employer] Details LastModified Time Tobacco Smoking Status Never Smoker ABRAN velasquez [facility] 10/28/2023 14:01:35 What Is Your Relationship Status? [email or web address] Information not available 02/24/2025 Sex: Unknown Functional Status Question Answer Note LastModified by [employer] Details LastModified Time How many times per week do you consume alcohol? 3-4 times per week [email or web address] Information not available 02/24/2025 Do you use any illicit or recreational drugs? No [email or web address] Information not available 02/24/2025 Do you or have you ever used any other forms of tobacco or nicotine? No [email or web address] Information not available 10/28/2023 What is your level of alcohol consumption? Occasional [email or web address] Information not available 02/24/2025 Mental Status None recorded. Family History Nothing Reported. Medical History Condition Response Allergies/Hayfever N Coronary Artery Disease N Anxiety/Depression N Breathing or lung disorders N Emphysema N Nerve Disorders N Thyroid Problems N COPD N Pacemaker N Anemia N Kidney/Bladder Problems N Vascular Disease N Heart Trouble Y Heart Attack ([place]) N Gastrointestinal Disease N Cholesterol Y Diabetes [...] ICD10 Code Diagnosis IMO Codes Diagnosis Note [id number] MD [place] Bateman [address] [address] 02/24/2025 08:26:36 03/06/2025 12:14:07 Impingement syndrome of right shoulder region [id number] 11657 M75.41 [id number] Health Concerns Section Related Observation LastModified by Organization Detai ls LastModified Time None Recorded Concern Status LastModified by Organization Details LastModified Time None Recorded Payers Encounter Date Sequence Insurance Name Policy Number Policy Marx Covered Member ID Marx Member ID Guarantor Name 02/24/2025 2 [place] [id number] Pipo Vidal [id number] Pipo Vidal 02/24/2025 1 [place] [employer] Pipo Vidal [id number] Pipo Vidal Notes Date Note Type Note Provider Name and Address Organization Details Recorded Time 02/24/2025 text/html Surgery: Right shoulder subscapularis repair, [...] and swelling. He completed PT down in [place], has continued with exercises on her own [...] aches and pains, the patient can take [id number] medication such as Tylenol or anti-inflammatories as needed; risks and benefits of medication discussed. Should call with more persistent pain. We will leave follow up open ended at this point. However should symptoms worsen or fail to improve to the patient's satisfaction, he is encouraged to give the office a call to be seen back for further evaluation and management. [employer] speech recognition magneto electrician software was used to create portions of this document. An attempt at proofreading has been made to minimize errors. Please call for corrections. Jeannie Mena MD [address] [place], [place] [address] [facility], [place], [address], [facility] 02/24/2025 09:25:51
--- OUTSIDE RECORDS SUMMARY | 2025-03-23 11:17 | XMS_ITS | Continuity of Care Document ---
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 Plan: Continue PT @ 2x/wk to decrease pain, increase strength, optimize shoulder mechanics for functional movements such as reaching and self-care. Lower trap strength. [email or web address] Not available 03/10/2025 08:53:32 Plan of Treatment Reminders Order Date Submit Date Provider Last Modified By Organization Details Last Modified Time Details Appointments PT FOLLOW -UP 025 10:30AM Juliusfannie Grecoek, PT Not available Not available Not available PT FOLLOW -UP 025 08:00AM Julius Fannieek, PT Not available Not available Not available PT FOLLOW -UP 025 07:00AM Julius Florek, PT Not available Not available Not available PT ANY 30 025 07:00AM Julius Florek, PT Not available Not available Not available PT FOLLOW -UP 025 07:30AM Josh Carranzari, FOUNDER CHAIRMAN AND CHIEF CREATIVE OFFICER Not available Not available Not available PT FOLLOW -UP 025 01:00PM Julius Fannieek, PT Not available Not available Not available PT FOLLOW -UP 025 08:00AM Julius Fannieek, PT Not available Not available Not available PT FOLLOW -UP 025 08:00AM Juliusfannie Grecoek, PT Not available Not available Not available PT FOLLOW -UP 025 07:30AM Julius Florek, PT Not available Not available Not available PT FOLLOW -UP 025 07:00AM Josh Scafuri, FOUNDER CHAIRMAN AND CHIEF CREATIVE OFFICER Not available Not available Not available PT FOLLOW -UP 025 07:30AM Josh Scafuri, FOUNDER CHAIRMAN AND CHIEF CREATIVE OFFICER Not available Not available Not available PT FOLLOW -UP 025 07:30AM Julius Florek, PT Not available Not available Not available PT FOLLOW -UP 025 07:30AM Josh Scafuri, FOUNDER CHAIRMAN AND CHIEF CREATIVE OFFICER Not available Not available Not available Lab None record ed. Referral None record ed. Procedures None record ed. Surgeries None record ed. Imaging None record ed. Medication Orders None record ed. Patient TargetsNo targets recorded. Patient InstructionsNo instructions recorded. Reason for Referral None Reported. Problems Name Problem SNOMED Code Status Onset Date Resolution Date Notes Provider Name and Address Organization Details Recorded Time No complaints [id number] Active Status : 'I'; Not Available [facility] 4 09:12:21 Pain of left shoulder joint [id number] 9109 Active 2020 Status : 'A'; Not Available [facility] 4 11:12:27 Problem Notes None recorded. Procedures Surgical History Date Name Laterality Status Provider Name and Address Organization Details Recorded Time 03/22/20 21561 Therapeutic Exercise (1:1) completed Julius Tao, PT [address], [place], [address], [facility] 03/22/2025 08:11:02 03/22/20 25 91232: Manual therapy completed Julius Tao, PT [address], [place], [address], [facility] 03/22/2025 08:11:02 03/17/20 25 58113 Therapeutic Exercise (1:1) completed Julius Tao, PT [address], [place], [address], [facility] 03/17/2025 03:56:30 11/07/20 25 06500: Manual therapy completed Julius Tao, PT [address], [place], [address], [facility] 03/17/2025 03:56:30 03/14/20 84917 Therapeutic Exercise (1:1) completed Julius Tao, PT [address], [place], [address], [facility] 03/14/2025 03:57:28 03/14/20 67385: Manual therapy completed Julius Tao, PT [address], [place], [address], [facility] 03/14/2025 03:57:28 03/10/20 77189 Therapeutic Exercise (1:1) completed Julius Tao, PT [address], [place], [address], [facility] 03/10/2025 08:48:32 03/10/20 46131: Manual therapy completed Julius Tao, PT [address], [place], [address], [facility] 03/10/2025 08:48:42 03/08/20 68269 Therapeutic Exercise (1:1) completed Julius Tao, PT [address], [place], [address], [facility] 03/08/2025 14:53:44 03/08/20 25740: Low complexity PT Eval completed Julius Tao, PT [address], [place], [address], [facility] 03/08/2025 14:53:47 03/08/20 G8420 BMI Normal, No Follow-Up Plan Required completed Julius Tao, PT [address], [place], [address], [facility] 03/09/2025 07:01:56 03/08/20 G8427 Current Medication Documented completed Julius Tao, PT [address], [place], [address], [facility] 03/09/2025 07:01:48 05/12/19 26469 Therapeutic Exercise (1:1) completed Julius Tao, PT [address], [place], [address], [facility] 05/12/2024 08:57:53 05/12/19 50893: Manual therapy completed Julius Tao, PT [address], [place], [address], [facility] 05/12/2024 08:57:53 05/09/20 96603 Therapeutic Exercise (1:1) completed Josh Echevarria, FOUNDER CHAIRMAN AND CHIEF CREATIVE OFFICER [address], [place], [address], [facility] 05/09/2024 08:23:53 05/09/20 95209: Manual therapy completed Josh Echevarria, FOUNDER CHAIRMAN AND CHIEF CREATIVE OFFICER [address], [place], [address], [facility] 05/09/2024 08:22:09 05/02/20 27573 Therapeutic Exercise (1:1) completed Julius Tao, PT [address], [place], [address], [facility] 05/01/2024 15:44:37 05/02/20 24 15171: Manual therapy completed Julius Tao, PT [address], [place], [address], [facility] 05/01/2024 15:44:37 04/28/20 24 22407 Therapeutic Exercise (1:1) completed Julius Tao PT [address], [place], [address], [facility] 04/28/2024 05:34:40 04/28/20 99871: Manual therapy completed Julius Tao, PT [address], [place], [address], [facility] 04/28/2024 05:34:40 04/26/20 80678 Therapeutic Exercise (1:1) completed Julius Tao, PT [address], [place], [address], [facility] 04/25/2024 16:17:02 04/26/20 77211: Manual therapy completed Julius Tao, PT [address], [place], [address], [facility] 04/25/2024 16:17:02 04/22/20 53803 Therapeutic Exercise (1:1) completed Julius Tao, PT [address], [place], [address], [facility] 04/21/2024 12:52:55 04/22/20 94184: Manual therapy completed Julius Tao, PT [address], [place], [address], [facility] 04/21/2024 12:52:56 04/20/20 33218 Therapeutic Exercise (1:1) completed Julius Tao, PT [address], [place], [address], [facility] 04/20/2024 11:46:40 04/20/20 08233: Manual therapy completed Julius Tao, PT [address], [place], [address], [facility] 04/20/2024 11:46:43 04/14/20 76630 Therapeutic Exercise (1:1) completed Julius Tao, PT [address], [place], [address], [facility] 04/15/2024 11:56:08 04/14/20 96554: Manual therapy completed uJlius Tao, PT [address], [place], [address], [facility] 04/15/2024 11:56:00 04/11/20 98298 Therapeutic Exercise (1:1) completed Juliusfannie Tao, PT [address], [place], [address], [facility] 04/10/2024 08:24:50 04/11/20 45125: Manual therapy completed Julius Tao, PT [address], [place], [address], [facility] 04/10/2024 08:24:50 04/05/20 73207 Therapeutic Exercise (1:1) completed Julius Tao, PT [address], [place], [address], [facility] 04/05/2024 06:44:04 04/05/20 58705: Manual therapy completed Julius Tao, PT [address], [place], [address], [facility] 04/05/2024 06:44:04 04/01/20 40621 Therapeutic Exercise (1:1) completed Julius Tao, PT [address], [place], [address], [facility] 03/31/2024 15:24:07 04/01/20 92520: Manual therapy completed Julius Tao, PT [address], [place], [address], [facility] 03/31/2024 15:24:07 03/29/20 64699 Therapeutic Exercise (1:1) completed Julius Tao, PT [address], [place], [address], [facility] 03/28/2024 11:04:52 03/29/20 14291: Manual therapy completed Julius Tao, PT [address], [place], [address], [facility] 03/28/2024 11:04:52 03/25/20 53352 Therapeutic Exercise (1:1) completed Josh Echevarria, FOUNDER CHAIRMAN AND CHIEF CREATIVE OFFICER [address], [place], [address], [facility] 03/25/2024 13:17:55 03/25/20 03979: Manual therapy completed Josh Echevarria, FOUNDER CHAIRMAN AND CHIEF CREATIVE OFFICER [address], [place], [address], [facility] 03/25/2024 13:17:55 03/23/20 74553 Therapeutic Exercise (1:1) completed Josh Echevarria, FOUNDER CHAIRMAN AND CHIEF CREATIVE OFFICER [address], [place], [address], [facility] 03/23/2024 11:37:37 03/23/20 94240: Manual therapy completed Josh Echevarria, FOUNDER CHAIRMAN AND CHIEF CREATIVE OFFICER [address], [place], [address], [facility] 03/23/2024 11:37:37 03/17/20 87613 Therapeutic Exercise (1:1) completed Julius Tao, PT [address], [place], [address], [facility] 03/17/2024 09:34:47 03/17/20 03386: Manual therapy completed Julius Tao, PT [address], [place], [address], [facility] 03/17/2024 07:08:38 03/15/20 34130 Therapeutic Exercise (1:1) completed Julius Tao, PT [address], [place], [address], [facility] 03/15/2024 06:43:43 03/15/20 01364: Manual therapy completed Julius Tao, PT [address], [place], [address], [facility] 03/15/2024 06:43:43 03/09/20 19409 Therapeutic Exercise (1:1) completed Josh Echevarria, FOUNDER CHAIRMAN AND CHIEF CREATIVE OFFICER [address], [place], [address], [facility] 03/09/2024 14:44:40 03/09/20 91877: Manual therapy completed Josh Scafuri, FOUNDER CHAIRMAN AND CHIEF CREATIVE OFFICER [address], [place], [address], [facility] 03/09/2024 14:44:40 03/07/20 88856 Therapeutic Exercise (1:1) completed Josh Carranzari, FOUNDER CHAIRMAN AND CHIEF CREATIVE OFFICER [address], [place], [address], [facility] 03/07/2024 12:35:25 03/07/20 87984: Manual therapy completed Joshcarleen Powersfuri, FOUNDER CHAIRMAN AND CHIEF CREATIVE OFFICER [address], [place], [address], [facility] 03/07/2024 12:35:25 03/03/20 94155 Therapeutic Exercise (1:1) completed Josh Carranzari, FOUNDER CHAIRMAN AND CHIEF CREATIVE OFFICER [address], [place], [address], [facility] 03/03/2024 12:01:17 03/03/20 24632: Manual therapy completed Joshcarleen Powersnishri, FOUNDER CHAIRMAN AND CHIEF CREATIVE OFFICER [address], [place], [address], [facility] 03/03/2024 11:54:06 03/01/20 37791 Therapeutic Exercise (1:1) completed Josh Echevarria, FOUNDER CHAIRMAN AND CHIEF CREATIVE OFFICER [address], [place], [address], [facility] 03/01/2024 11:11:52 03/01/20 38022: Manual therapy completed Josh Gionishri, FOUNDER CHAIRMAN AND CHIEF CREATIVE OFFICER [address], [place], [address], [facility] 03/01/2024 11:10:49 02/25/20 27268 Therapeutic Exercise (1:1) completed Julius Tao, PT [address], [place], [address], [facility] 02/25/2024 04:53:04 02/25/20 87429: Manual therapy completed Julius Tao PT [address], [place], [address], [facility] 02/25/2024 04:53:04 02/19/20 00467 Therapeutic Exercise (1:1) completed Josh Echevarria, FOUNDER CHAIRMAN AND CHIEF CREATIVE OFFICER [address], [place], [address], [facility] 02/22/2024 10:27:03 02/19/20 62190: Manual therapy completed Josh Echevarria, FOUNDER CHAIRMAN AND CHIEF CREATIVE OFFICER [address], [place], [address], [facility] 02/22/2024 10:27:03 02/17/20 98865 Therapeutic Exercise (1:1) completed Josh Echevarria, FOUNDER CHAIRMAN AND CHIEF CREATIVE OFFICER [address], [place], [address], [facility] 02/17/2024 14:59:06 02/17/20 41195: Manual therapy completed Josh Echevarria FOUNDER CHAIRMAN AND CHIEF CREATIVE OFFICER [address], [place], [address], [facility] 02/17/2024 14:59:06 02/10/20 13942 Therapeutic Exercise (1:1) completed Julius Tao, PT [address], [place], [address], [facility] 02/10/2024 06:49:45 02/10/20 42514: Manual therapy completed Julius Tao, PT [address], [place], [address], [facility] 02/10/2024 11:48:46 02/08/20 75776 Therapeutic Exercise (1:1) completed Julius Tao, PT [address], [place], [address], [facility] 02/08/2024 18:18:50 02/08/20 07069: Low complexity PT Eval completed Julius Tao, PT [address], [place], [address], [facility] 02/08/2024 18:18:55 02/08/20 24 G8420 BMI Normal, No Follow-Up Plan Required completed Julius Tao, PT [address], [place], [address], [facility] 02/08/2024 18:19:10 02/08/20 24 G8427 Current Medication Documented completed Julius Tao, PT [address], [place], [address], [facility] 02/08/2024 18:19:03 01/05/20 24 repair of rotator cuff by suture completed ABRAN HARKINS [facility] 02/05/2024 09:57:23 10/28/19 24 Sports Shoulder completed Jeannie Mena MD [address], [place], [address], [facility] 10/28/2023 15:06:42 01/08/20 17 Other completed ABRAN HARKINS [facility] 01/19/2024 13:37:46 01/10/20 01 [facility] 10/28/2023 14:01:35 hernia repair completed ABRAN HARKINS [facility] 01/19/2024 13:38:06 cardiac catheterization completed ABRAN HARKINS [facility] 01/19/2024 13:38:31 Imaging Results None recorded. Procedure [...] Tobacco Smoking Status Never Smoker ABRAN velasquez [place] - [facility] 10/28/2023 14:01:35 What Is Your Relationship Status? [email or web address] Information not available 02/24/2025 Sex: Unknown Functional Status Question Answer Note LastModified by Organizat ion Details LastModified Time How many times per week do you consume alcohol? 3-4 times per week [email or web address] Information not available 02/24/2025 Do you use any illicit or recreational drugs? No [email or web address] Information not available 02/24/2025 Do you or have you ever used any other forms of tobacco or nicotine? No [email or web address] Information not available 10/28/2023 What is your level of alcohol consumption? Occasional [email or web address] Information not available 02/24/2025 Mental Status None recorded. Family History Nothing Reported. Medical History Condition Response Allergies/Hayfever N Coronary Artery Disease N Anxiety/Depression N Breathing or lung disorders N Emphysema N Nerve Disorders N Thyroid Problems N COPD N Pacemaker N Anemia N Kidney/Bladder Problems N Vascular Disease N Heart Trouble Y Heart Attack ([place]) N Gastrointestinal Disease N Cholesterol Y Diabetes [...] ICD10 Code Diagnosis IMO Codes Diagnosis Note [id number] MD [facility] [address] [place] [address] 02/24/2025 08:26:36 03/06/2025 12:14:07 Impingement syndrome of right shoulder region [id number] 73119 M75.41 [id number] Julius Tao PT [facility] [address] [place] [address] 03/08/2025 13:11:38 03/08/2025 16:24:18 Impingement syndrome of right shoulder region [id number] 01102 M75.41 [id number] Julius Tao PT [facility] [address] [place] [address] 03/10/2025 07:17:53 03/10/2025 09:48:20 Impingement syndrome of right shoulder region [id number] 06227 M75.41 Health Concerns Section Related Observation LastModified by Organization Detai ls LastModified Time None Recorded Concern Status LastModified by Organization Details LastModified Time None Recorded Payers Encounter Date Sequence Insurance Name Policy Number Policy Marx Covered Member ID Marx Member ID Guarantor Name 03/10/2025 2 [place] [id number] Pipo Vidal [id number] Pipo Vidal 03/10/2025 1 [place] [employer] Pipo Vidal [id number] Pipo Vidal Notes Date Note Type Note Provider Name and Address Organization Details Recorded Time 03/10/2025 text/html Patient states pain 0/10 at rest, pain 2/10 with movement. Julius Tao, PT [address], [place], [address], [facility] 03/10/2025 08:54:01
--- OUTSIDE RECORDS SUMMARY | 2025-03-23 11:17 | XMS_ITS | Data Portability ---
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 Lower trap strength. Not available 03/08/2025 14:55:42 03/10/2025 03/10/2025 Assessment: Patient presents with improved machanics AG. Plan: Continue PT @ 2x/wk to decrease pain, increase strength, optimize shoulder mechanics for functional movements such as reaching and self-care. Lower trap strength. Not available 03/10/2025 08:53:32 03/14/2025 03/14/2025 Assessment: Patient presents with improved mechanics AG. Increased posterior capsule mobility. Plan: Continue PT @ 2x/wk to decrease pain, increase strength, optimize shoulder mechanics for functional movements such as reaching and self-care. Lower trap strength. Not available 03/14/2025 11:59:06 03/17/2025 03/17/2025 Assessment: Patient presents with improved mechanics AG. Increased posterior capsule mobility. Pain with D1 flexion. Plan: Continue PT @ 2x/wk to decrease pain, increase strength, optimize shoulder mechanics for functional movements such as reaching and self-care. Lower trap strength. Not available 03/17/2025 08:27:42 03/22/2025 03/22/2025 Assessment: Patient presents with improved mechanics AG. Increased posterior capsule mobility. Plan: Continue PT @ 2x/wk to decrease pain, increase strength, optimize shoulder mechanics for functional movements such as reaching and self-care. Lower trap strength. Not available 03/23/2025 04:18:27 Plan of Treatment Reminders Order Date Submit Date Provider Last Modified By Organization Details Last Modified Time Details Appointments PT FOLLOW -UP 10:30AM Julius Florek, PT Not available Not available Not available PT FOLLOW -UP 08:00AM Julius Florek, PT Not available Not available Not available PT FOLLOW -UP 07:00AM Julius Florek, PT Not available Not available Not available PT ANY 30 025 07:00AM Julius Florek, PT Not available Not available Not available PT FOLLOW -UP 07:30AM Josh Scafuri, MANAGER SURGICAL Not available Not available Not available PT FOLLOW -UP 025 01:00PM Julius Florek, PT Not available Not available Not available PT FOLLOW -UP 025 08:00AM Julius Florek, PT Not available Not available Not available PT FOLLOW -UP 025 08:00AM Julius Florek, PT Not available Not available Not available PT FOLLOW -UP 025 07:30AM Julius Florek, PT Not available Not available Not available PT FOLLOW -UP 025 07:00AM Josh Scafuri, MANAGER SURGICAL Not available Not available Not available PT FOLLOW -UP 025 07:30AM Josh Scafuri, MANAGER SURGICAL Not available Not available Not available PT FOLLOW -UP 025 07:30AM Julius Florek, PT Not available Not available Not available PT FOLLOW -UP 025 07:30AM Josh Scafuri, MANAGER SURGICAL Not available Not available Not available Lab [...] Address Organization Details Recorded Time No complaints [id number] Active Status : 'I'; Not Available [facility] 4 09:12:21 Pain of left shoulder joint [id number] 9109 Active 2020 Status : 'A'; Not Available [facility] 4 11:12:27 Problem Notes None recorded. Procedures Surgical History Date Name Laterality Status Provider Name and Address Organization Details Recorded Time 03/22/20 09082 Therapeutic Exercise (1:1) completed Julius Tao, PT [address], [place], [address], [facility] 03/22/2025 08:11:02 03/22/20 03322: Manual therapy completed Julius Tao, PT [address], [place], [address], [facility] 03/22/2025 08:11:02 03/17/20 53343 Therapeutic Exercise (1:1) completed Julius Tao PT [address], [place], [address], [facility] 03/17/2025 03:56:30 03/17/20 49650: Manual therapy completed Julius Tao PT [address], [place], [address], [facility] 03/17/2025 03:56:30 03/14/20 82342 Therapeutic Exercise (1:1) completed Julius Tao PT [address], [place], [address], [facility] 03/14/2025 03:57:28 03/14/20 22084: Manual therapy completed Julius Tao, PT [address], [place], [address], [facility] 03/14/2025 03:57:28 03/10/20 80731 Therapeutic Exercise (1:1) completed Julius Tao, PT [address], [place], [address], [facility] 03/10/2025 08:48:32 03/10/20 80447: Manual therapy completed Julius Tao, PT [address], [place], [address], [facility] 03/10/2025 08:48:42 03/08/20 58683 Therapeutic Exercise (1:1) completed Julius Tao, PT [address], [place], [address], [facility] 03/08/2025 14:53:44 03/08/20 93621: Low complexity PT Eval completed Julius Tao, PT [address], [place], [address], [facility] 03/08/2025 14:53:47 03/08/20 G8420 BMI Normal, No Follow-Up Plan Required completed Julius Tao, PT [address], [place], [address], [facility] 03/09/2025 07:01:56 03/08/20 G8427 Current Medication Documented completed Julius Tao, PT [address], [place], [address], [facility] 03/09/2025 07:01:48 05/12/19 88017 Therapeutic Exercise (1:1) completed Julius Tao, PT [address], [place], [address], [facility] 05/12/2024 08:57:53 05/12/19 37453: Manual therapy completed Julius Tao, PT [address], [place], [address], [facility] 05/12/2024 08:57:53 05/09/20 06486 Therapeutic Exercise (1:1) completed Josh Scafuri, MANAGER SURGICAL [address], [place], [address], [facility] 05/09/2024 08:23:53 05/09/20 62737: Manual therapy completed Josh Echevarria, MANAGER SURGICAL [address], [place], [address], [facility] 05/09/2024 08:22:09 05/02/20 04189 Therapeutic Exercise (1:1) completed Julius Tao, PT [address], [place], [address], [facility] 05/01/2024 15:44:37 05/02/20 98232: Manual therapy completed Julius Tao, PT [address], [place], [address], [facility] 05/01/2024 15:44:37 04/28/20 53609 Therapeutic Exercise (1:1) completed Julius Tao, PT [address], [place], [address], [facility] 04/28/2024 05:34:40 04/28/20 92209: Manual therapy completed Julius Tao, PT [address], [place], [address], [facility] 04/28/2024 05:34:40 04/26/20 38276 Therapeutic Exercise (1:1) completed Julius Tao, PT [address], [place], [address], [facility] 04/25/2024 16:17:02 04/26/20 02697: Manual therapy completed Julius Tao, PT [address], [place], [address], [facility] 04/25/2024 16:17:02 04/22/20 24 63506 Therapeutic Exercise (1:1) completed Julius Tao, PT [address], [place], [address], [facility] 04/21/2024 12:52:55 04/22/20 60992: Manual therapy completed Julius Tao, PT [address], [place], [address], [facility] 04/21/2024 12:52:56 04/20/20 78692 Therapeutic Exercise (1:1) completed Julius Tao, PT [address], [place], [address], [facility] 04/20/2024 11:46:40 04/20/20 32028: Manual therapy completed Julius Tao, PT [address], [place], [address], [facility] 04/20/2024 11:46:43 04/14/20 93063 Therapeutic Exercise (1:1) completed Julius Tao, PT [address], [place], [address], [facility] 04/15/2024 11:56:08 04/14/20 70621: Manual therapy completed Julius Tao, PT [address], [place], [address], [facility] 04/15/2024 11:56:00 04/11/20 43988 Therapeutic Exercise (1:1) completed Julius Tao, PT [address], [place], [address], [facility] 04/10/2024 08:24:50 04/11/20 45724: Manual therapy completed Julius Tao, PT [address], [place], [address], [facility] 04/10/2024 08:24:50 04/05/20 94449 Therapeutic Exercise (1:1) completed Julius Tao, PT [address], [place], [address], [facility] 04/05/2024 06:44:04 11/26/20 24 33112: Manual therapy completed Julius Tao, PT [address], [place], [address], [facility] 04/05/2024 06:44:04 04/01/20 91081 Therapeutic Exercise (1:1) completed Julius Tao, PT [address], [place], [address], [facility] 03/31/2024 15:24:07 04/01/20 38694: Manual therapy completed Julius Tao, PT [address], [place], [address], [facility] 03/31/2024 15:24:07 03/29/20 93218 Therapeutic Exercise (1:1) completed Julius Tao, PT [address], [place], [address], [facility] 03/28/2024 11:04:52 03/29/20 59013: Manual therapy completed Julius Tao, PT [address], [place], [address], [facility] 03/28/2024 11:04:52 03/25/20 69389 Therapeutic Exercise (1:1) completed Josh Echevarria, MANAGER SURGICAL [address], [place], [address], [facility] 03/25/2024 13:17:55 03/25/20 37415: Manual therapy completed Josh Echevarria, MANAGER SURGICAL [address], [place], [address], [facility] 03/25/2024 13:17:55 03/23/20 00870 Therapeutic Exercise (1:1) completed Josh Echevarria, MANAGER SURGICAL [address], [place], [address], [facility] 03/23/2024 11:37:37 03/23/20 05377: Manual therapy completed Josh Echevarria, MANAGER SURGICAL [address], [place], [address], [facility] 03/23/2024 11:37:37 03/17/20 62430 Therapeutic Exercise (1:1) completed Julius Tao, PT [address], [place], [address], [facility] 03/17/2024 09:34:47 03/17/20 37623: Manual therapy completed Julius Tao, PT [address], [place], [address], [facility] 03/17/2024 07:08:38 03/15/20 89592 Therapeutic Exercise (1:1) completed Julius Tao, PT [address], [place], [address], [facility] 03/15/2024 06:43:43 03/15/20 68148: Manual therapy completed Julius Tao, PT [address], [place], [address], [facility] 03/15/2024 06:43:43 03/09/20 11973 Therapeutic Exercise (1:1) completed Josh Echevarria, MANAGER SURGICAL [address], [place], [address], [facility] 03/09/2024 14:44:40 03/09/20 74550: Manual therapy completed Josh Echevarria, MANAGER SURGICAL [address], [place], [address], [facility] 03/09/2024 14:44:40 03/07/20 61726 Therapeutic Exercise (1:1) completed Josh Echevarria, MANAGER SURGICAL [address], [place], [address], [facility] 03/07/2024 12:35:25 03/07/20 60554: Manual therapy completed Josh Echevarria, MANAGER SURGICAL [address], [place], [address], [facility] 03/07/2024 12:35:25 03/03/20 03169 Therapeutic Exercise (1:1) completed Josh Scafuri, MANAGER SURGICAL [address], [place], [address], [facility] 03/03/2024 12:01:17 03/03/20 13934: Manual therapy completed Josh Giofuri, MANAGER SURGICAL [address], [place], [address], [facility] 03/03/2024 11:54:06 03/01/20 59874 Therapeutic Exercise (1:1) completed Josh Scafuri, MANAGER SURGICAL [address], [place], [address], [facility] 03/01/2024 11:11:52 03/01/20 65160: Manual therapy completed Josh Powersfuri, MANAGER SURGICAL [address], [place], [address], [facility] 03/01/2024 11:10:49 02/25/20 14019 Therapeutic Exercise (1:1) completed Julius Tao, PT [address], [place], [address], [facility] 02/25/2024 04:53:04 02/25/20 07526: Manual therapy completed Julius Tao, PT [address], [place], [address], [facility] 02/25/2024 04:53:04 02/19/20 95905 Therapeutic Exercise (1:1) completed Josh Scafuri, MANAGER SURGICAL [address], [place], [address], [facility] 02/22/2024 10:27:03 02/19/20 15491: Manual therapy completed Josh Giofuri, MANAGER SURGICAL [address], [place], [address], [facility] 02/22/2024 10:27:03 02/17/20 00889 Therapeutic Exercise (1:1) completed Josh Scafuri, MANAGER SURGICAL [address], [place], [address], [facility] 02/17/2024 14:59:06 02/17/20 24 22649: Manual therapy completed Josh Echevarria, MANAGER SURGICAL [address], [place], [address], [facility] 02/17/2024 14:59:06 02/10/20 24 72778 Therapeutic Exercise (1:1) completed Julius Tao, PT [address], [place], [address], [facility] 02/10/2024 06:49:45 02/10/20 55806: Manual therapy completed Julius Tao, PT [address], [place], [address], [facility] 02/10/2024 11:48:46 02/08/20 24 33421 Therapeutic Exercise (1:1) completed Julius Tao, PT [address], [place], [address], [facility] 02/08/2024 18:18:50 02/08/20 24 86067: Low complexity PT Eval completed Julius Tao, PT [address], [place], [address], [facility] 02/08/2024 18:18:55 02/08/20 24 G8420 BMI Normal, No Follow-Up Plan Required completed Julius Tao PT [address], [place], [address], [facility] 02/08/2024 18:19:10 02/08/20 24 G8427 Current Medication Documented completed Julius Tao PT [address], [place], [address], [facility] 02/08/2024 18:19:03 01/05/20 24 repair of rotator cuff by suture completed ABRAN HARKINS [facility] 02/05/2024 09:57:23 10/28/19 24 Sports Shoulder completed Jeannie Mena MD [address], [place], [address], [facility] 10/28/2023 15:06:42 01/08/20 17 Other completed ABRAN HARKINS [facility] 01/19/2024 13:37:46 01/10/20 01 Stent completed ABRAN HARKINS [facility] 10/28/2023 14:01:35 hernia repair completed ABRAN HARKINS [facility] 01/19/2024 13:38:06 cardiac catheterization completed ABRAN HARKINS [facility] 01/19/2024 13:38:31 Imaging Results None recorded. [...] 240 ML BY MOUTH EVERY 10 MINUTES 06/19 /2024 completed Not Available Not Available Not Available Eliquis 5 mg tablet active Not Available Not Available No t Available Vitals None Recorded Social History Question Answer Notes LastModified by Organizat ion Details LastModified Time Tobacco Smoking Status Never Smoker ABRAN velasquez [place] - [facility] 10/28/2023 14:01:35 What Is Your Relationship Status? [email or web address] Information not available 02/24/2025 Sex: Unknown Functional Status Question Answer Note LastModified by Organizat ion Details LastModified Time How many times per week do you consume alcohol? 3-4 times per week Information not available 02/24/2025 Do you use any illicit or recreational drugs? No [email or web address] Information not available 02/24/2025 Do you or have you ever used any other forms of tobacco or nicotine? No [email or web address] Information not available 10/28/2023 What is your level of alcohol consumption? Occasional Information not available 02/24/2025 Mental Status None [...] ICD10 Code Diagnosis IMO Codes Diagnosis Note [id number] MD Matthias Bateman [address] [place] [address] 10/28/2023 13:36:09 11/17/2023 16:08:42 Pain of right shoulder joint [id number] 3017050 M25.851 [id number] MD Matthias Bateman [address] floor [address] [place] [address] 12/01/2023 12:18:02 12/29/2023 15:07:19 Pain of right shoulder joint 7318400832 [id number] M25.138 [id number] MD Jeremías Bateman Clinical [address] [place] [address] 12/11/2023 07:09:19 01/08/2024 17:14:21 Partial thickness rotator cuff tear 486686974 M75.111 Full thick ness rotator cuff tear 252513013 M75.368 [id number] MD Matthias Bateman [address] [place] [address] 01/19/2024 13:19:43 02/11/2024 13:48:49 Partial thickness rotator cuff tear 321340805 M75.681 [id number] MD Matthias Bateman [address] [place] [address] 02/05/2024 09:35:17 02/26/2024 15:00:35 Follow-up orthopedic assessment [id number] Z47.89 [id number] Julius Tao, PT [facility] [address] [place] [address] 02/08/2024 12:15:30 02/08/2024 13:10:24 Rupture of rotator cuff of right shoulder 4512013022 [id number] M75.517 [id number] Julius Tao, PT [facility] [address] [place] [address] 02/10/2024 06:43:06 02/10/2024 07:34:40 Rupture of rotator cuff of right shoulder 6913397608 [id number] M75.621 [id number] Josh Echevarria, MANAGER SURGICAL [facility] [address] [place] [address] 02/17/2024 11:20:44 02/17/2024 12:11:01 Rupture of rotator cuff of right shoulder [id number] M75.004 [id number] Josh Echevarria, MANAGER SURGICAL [facility] [address] [place] [address] 02/19/2024 15:09:10 02/19/2024 16:08:13 Rupture of rotator cuff of right shoulder 6314013365 [id number] M75.575 [id number] Julius Tao, PT [facility] [address] [place] [address] 02/25/2024 07:45:19 02/25/2024 10:37:19 Rupture of rotator cuff of right shoulder 9364150397 [id number] M75.564 [id number] Josh Echevarria, MANAGER SURGICAL [facility] [address] [place] [address] 03/01/2024 09:46:12 03/01/2024 11:23:39 Rupture of rotator cuff of right shoulder 9467532045 [id number] M75.029 [id number] Josh Echevarria, MANAGER SURGICAL [facility] [address] [place] [address] 03/03/2024 09:41:20 03/03/2024 10:29:06 Rupture of rotator cuff of right shoulder 7750392526 [id number] M75.588 [id number] Josh Echevarria, MANAGER SURGICAL [facility] [address] [place] [address] 03/07/2024 10:45:28 03/07/2024 11:34:17 Rupture of rotator cuff of right shoulder 4897794961 [id number] M75.259 [id number] Josh Echevarria, MANAGER SURGICAL [facility] [address] [place] [address] 03/09/2024 10:46:52 03/09/2024 12:19:55 Rupture of rotator cuff of right shoulder [id number] M75.416 [id number] Julius Tao, PT [facility] [address] [place] [address] 03/15/2024 08:44:39 03/15/2024 10:31:45 Rupture of rotator cuff of right shoulder [id number] [id number] M75.248 [id number] Julius Dinh, PT [facility] [address] [place] [address] 03/17/2024 08:46:24 03/17/2024 11:06:50 Rupture of rotator cuff of right shoulder 5518948608 [id number] M75.279 [id number] Kati Blackmon, WE[facility] [employer] [address] [place] [address] 03/24/2024 08:49:00 04/12/2024 13:57:05 [id number] Josh Echevarria, MANAGER SURGICAL [facility] [address] [place] [address] 03/23/2024 10:48:37 03/23/2024 12:01:00 Rupture of rotator cuff of right shoulder [id number] M75.037 [id number] Josh Echevarria, MANAGER SURGICAL [facility] [address] [place] [address] 03/25/2024 10:48:34 03/25/2024 12:53:50 Rupture of rotator cuff of right shoulder 3617904444 [id number] M75.591 [id number] Julius Dinh, PT [facility] [address] [place] [address] 03/29/2024 09:15:43 03/29/2024 10:47:41 Rupture of rotator cuff of right shoulder [id number] M75.079 [id number] Julius Tao, PT [facility] [address] [place] [address] 04/01/2024 09:16:55 04/01/2024 10:18:00 Rupture of rotator cuff of right shoulder 9719551538 [id number] M75.528 [id number] Julius Tao, PT [facility] [address] [place] [address] 04/05/2024 09:20:08 04/05/2024 10:52:55 Rupture of rotator cuff of right shoulder [id number] M75.873 [id number] MD Jeremías Bateman Clinical [address] [place] [address] 04/29/2024 09:36:12 05/22/2024 10:27:52 Follow-up orthopedic assessment [id number] Z47.89 [id number] Julius Tao, PT [facility] [address] [place] [address] 04/11/2024 10:42:23 04/11/2024 11:53:47 Rupture of rotator cuff of right shoulder 4104702819 [id number] M75.782 [id number] Julius Tao, PT [facility] [address] [place] [address] 04/14/2024 13:15:43 04/14/2024 14:19:15 Rupture of rotator cuff of right shoulder 0869905381 [id number] M75.543 [id number] Julius Tao, PT [facility] [address] [place] [address] 04/20/2024 08:14:11 04/20/2024 09:02:39 Rupture of rotator cuff of right shoulder 5954582206 [id number] M75.723 [id number] Julius Tao, PT [facility] [address] [place] [address] 04/22/2024 09:17:28 04/22/2024 10:31:17 Rupture of rotator cuff of right shoulder 1301790330 [id number] M75.334 [id number] Julius Tao, PT [facility] [address] [place] [address] 04/26/2024 09:52:15 04/26/2024 10:21:58 Rupture of rotator cuff of right shoulder 9684208717 [id number] M75.576 [id number] Julius Tao, PT [facility] [address] [place] [address] 04/28/2024 09:17:13 04/28/2024 10:41:24 Rupture of rotator cuff of right shoulder 4667157098 [id number] M75.665 [id number] Julius Tao, PT [facility] [address] [place] [address] 05/02/2024 09:17:05 05/03/2024 06:40:18 Rupture of rotator cuff of right shoulder [id number] M75.000 [id number] Josh Echevarria, MANAGER SURG[facility] [address] [place] [address] 05/09/2024 07:13:32 05/09/2024 07:54:26 Rupture of rotator cuff of right shoulder [id number] M75.762 [id number] Julius Tao, PT [facility] [address] [place] [address] 05/12/2024 10:18:05 05/12/2024 11:18:11 Rupture of rotator cuff of right shoulder [id number] M75.191 [id number] MD OLIMPIA Bateman [address] [place] [address] 08/22/2024 09:33:01 09/01/2024 15:14:22 Follow-up orthopedic assessment [id number] Z47.89 [id number] MD OLIMPIA Bateman [facility] [address] [facility] [address] 02/24/2025 08:26:36 03/06/2025 12:14:07 Impingement syndrome of right shoulder region [id number] M75.41 [id number] Julius Tao, PT [facility] [address] [place] [address] 03/08/2025 13:11:38 03/08/2025 16:24:18 Impingement syndrome of right shoulder region [id number] 26663 M75.41 [id number] Julius Tao, PT [facility] [address] [place] [address] 03/10/2025 07:17:53 03/10/2025 09:48:20 Impingement syndrome of right shoulder region [id number] M75.41 [id number] Julius Tao, PT [facility] [address] [place] [address] 03/14/2025 08:47:17 03/14/2025 12:46:15 Impingement syndrome of right shoulder region [id number] 89038 M75.41 [id number] Julius Tao, PT [facility] [address] [place] [address] 03/17/2025 07:22:19 03/17/2025 08:31:47 Impingement syndrome of right shoulder region [id number] 71432 M75.41 [id number] Julius Tao, PT [facility] [address] [place] [address] 03/22/2025 13:51:01 03/22/2025 14:56:10 Impingement syndrome of right shoulder region [id number] M75.41 Health Concerns Section Related Observation LastModified by Organization Detai ls LastModified Time None Recorded Concern Status LastModified by Organization Details LastModified Time None Recorded Advance Directives Directive None Recorded Payers Insurance Date Sequence Insurance Name Policy Number Policy Marx Covered Member ID Marx Member ID Guarantor Name 03/11/2025 NORIDIAN - SPECIALITY CLAIMS (MEDICARE DME REGION A) Pipo Vidal [id number] 1 [id number] Pipo Vidal 03/23/2025 2 [place] [id number] Pipo Vidal [id number] Pipo Vidal 03/11/2025 1 [place] [employer]ERNMENT [place] Pipo Vidal [id number] 1 [id number] Pipo Vidal Notes Date Note Type [...] get back to all normal activities, Julius Dinh, PT [address] [facility], [place], [address], [facility] 03/09/2025 07:02:26 03/10/2025 text/html Patient states pain 0/10 at rest, pain 2/10 with movement. Julius Tao, PT [address], [place], [address], [facility] 03/10/2025 08:54:01 03/14/2025 text/html Patient states pain 0/10 at rest, pain 2/10 with movement. Julius Tao, PT [address], [place], [address], [facility] 03/14/2025 11:59:29 03/17/2025 text/html Patient states pain 0/10 at rest, pain 2/10 with movement. Julius Tao, PT [address], [place], [address], [facility] 03/17/2025 08:28:03 03/22/2025 text/html Patient states pain 0/10 at rest, pain 2/10 with movement. Julius Tao, PT [address], [place], [address], [facility] 03/23/2025 04:19:02
--- OUTSIDE RECORDS SUMMARY | 2025-03-23 11:18 | XMS_ITS | Continuity of Care Document ---
Author Organization [facility], [facility] Villator[facility] PT Address [address] [place] [address] Care Team Providers Care Sales Stock Associate Name Role Phone LUCRETIA NICOLE Referring Provider [phone] LUCRETIA NICOLE Primary Care Provider MENA BARNEY Medical Scientific Liaison Assessment Encounter Date Assessment Date Assessment LastModified by Organization Details LastModified Time 03/22/2025 03/22/2025 Assessment: Patient presents with improved mechanics AG. Increased posterior capsule mobility. Plan: Continue PT @ 2x/wk to decrease pain, increase strength, optimize shoulder mechanics for functional movements such as reaching and self-care. Lower trap strength. [email or web address] Not available 03/23/2025 04:18:27 Plan of Treatment Reminders Order Date Submit Date Provider Last Modified By Organization Details Last Modified Time Details Appointments PT FOLLOW -UP 025 10:30AM Juliusfannie Tao, PT Not available Not available Not available PT FOLLOW -UP 025 08:00AM Julius Fannieek, PT Not available Not available Not available PT FOLLOW -UP 025 07:00AM Julius Florek, PT Not available Not available Not available PT ANY 30 025 07:00AM Julius Fannieek, PT Not available Not available Not available PT FOLLOW -UP 025 07:30AM Joshcarleen Carranzari, TRACTOR OPERATOR LASER LEVELING Not available Not available Not available PT FOLLOW -UP 025 01:00PM Juliusfannie Grecoek, PT Not available Not available Not available PT FOLLOW -UP 025 08:00AM Julius Fannieek, PT Not available Not available Not available PT FOLLOW -UP 025 08:00AM Juliusfannie Grecoek, PT Not available Not available Not available PT FOLLOW -UP 025 07:30AM Julius Florek, PT Not available Not available Not available PT FOLLOW -UP 025 07:00AM Josh Scafuri, TRACTOR OPERATOR LASER LEVELING Not available Not available Not available PT FOLLOW -UP 025 07:30AM Josh Scafuri, TRACTOR OPERATOR LASER LEVELING Not available Not available Not available PT FOLLOW -UP 025 07:30AM Julius Florek, PT Not available Not available Not available PT FOLLOW -UP 025 07:30AM Josh Scafuri, TRACTOR OPERATOR LASER LEVELING Not available Not available Not available Lab [...] Address Organization Details Recorded Time No complaints [id number] Active Status : 'I'; Not Available [facility] 4 09:12:21 Pain of left shoulder joint [id number] 9109 Active 2020 Status : 'A'; Not Available [facility] 4 11:12:27 Problem Notes None recorded. Procedures Surgical History Date Name Laterality Status Provider Name and Address Organization Details Recorded Time 03/22/20 50035 Therapeutic Exercise (1:1) completed Julius Tao, PT [address], [place], [address], [facility] 03/22/2025 08:11:02 03/22/20 25 20956: Manual therapy completed Julius Tao, PT [address], [place], [address], [facility] 03/22/2025 08:11:02 03/17/20 25 28454 Therapeutic Exercise (1:1) completed Julius Tao, PT [address], [place], [address], [facility] 03/17/2025 03:56:30 03/17/20 08431: Manual therapy completed Julius Tao, PT [address], [place], [address], [facility] 03/17/2025 03:56:30 03/14/20 35980 Therapeutic Exercise (1:1) completed Julius Tao, PT [address], [place], [address], [facility] 03/14/2025 03:57:28 03/14/20 12463: Manual therapy completed Julius Tao, PT [address], [place], [address], [facility] 03/14/2025 03:57:28 03/10/20 84075 Therapeutic Exercise (1:1) completed Julius Tao, PT [address], [place], [address], [facility] 03/10/2025 08:48:32 03/10/20 74317: Manual therapy completed Julius Tao, PT [address], [place], [address], [facility] 03/10/2025 08:48:42 03/08/20 73974 Therapeutic Exercise (1:1) completed Julius Tao, PT [address], [place], [address], [facility] 03/08/2025 14:53:44 03/08/20 17880: Low complexity PT Eval completed Julius Tao, PT [address], [place], [address], [facility] 03/08/2025 14:53:47 03/08/20 G8420 BMI Normal, No Follow-Up Plan Required completed Julius Tao, PT [address], [place], [address], [facility] 03/09/2025 07:01:56 03/08/20 G8427 Current Medication Documented completed Julius Tao, PT [address], [place], [address], [facility] 03/09/2025 07:01:48 05/12/19 26959 Therapeutic Exercise (1:1) completed Julius Tao, PT [address], [place], [address], [facility] 05/12/2024 08:57:53 05/12/19 71017: Manual therapy completed Julius Tao, PT [address], [place], [address], [facility] 05/12/2024 08:57:53 05/09/20 01007 Therapeutic Exercise (1:1) completed Josh Echevarria, TRACTOR OPERATOR LASER LEVELING [address], [place], [address], [facility] 05/09/2024 08:23:53 05/09/20 96244: Manual therapy completed Josh Echevarria, TRACTOR OPERATOR LASER LEVELING [address], [place], [address], [facility] 05/09/2024 08:22:09 05/02/20 84713 Therapeutic Exercise (1:1) completed Julius Tao, PT [address], [place], [address], [facility] 05/01/2024 15:44:37 05/02/20 36408: Manual therapy completed Julius Tao, PT [address], [place], [address], [facility] 05/01/2024 15:44:37 04/28/20 24 99535 Therapeutic Exercise (1:1) completed Julius Tao, PT [address], [place], [address], [facility] 04/28/2024 05:34:40 04/28/20 29473: Manual therapy completed Julius Tao, PT [address], [place], [address], [facility] 04/28/2024 05:34:40 04/26/20 66997 Therapeutic Exercise (1:1) completed Julius Tao, PT [address], [place], [address], [facility] 04/25/2024 16:17:02 04/26/20 02787: Manual therapy completed Julius Tao, PT [address], [place], [address], [facility] 04/25/2024 16:17:02 04/22/20 69938 Therapeutic Exercise (1:1) completed Julius Tao, PT [address], [place], [address], [facility] 04/21/2024 12:52:55 04/22/20 82380: Manual therapy completed Julius Tao, PT [address], [place], [address], [facility] 04/21/2024 12:52:56 04/20/20 02615 Therapeutic Exercise (1:1) completed Julius Tao, PT [address], [place], [address], [facility] 04/20/2024 11:46:40 04/20/20 80622: Manual therapy completed Julius Tao, PT [address], [place], [address], [facility] 04/20/2024 11:46:43 04/14/20 00574 Therapeutic Exercise (1:1) completed Julius Tao, PT [address], [place], [address], [facility] 04/15/2024 11:56:08 04/14/20 59056: Manual therapy completed Julius Tao, PT [address], [place], [address], [facility] 04/15/2024 11:56:00 04/11/20 57784 Therapeutic Exercise (1:1) completed Juliusfannie Tao, PT [address], [place], [address], [facility] 04/10/2024 08:24:50 04/11/20 08846: Manual therapy completed Julius Tao, PT [address], [place], [address], [facility] 04/10/2024 08:24:50 04/05/20 63782 Therapeutic Exercise (1:1) completed Julius Tao, PT [address], [place], [address], [facility] 04/05/2024 06:44:04 04/05/20 38464: Manual therapy completed Julius Tao, PT [address], [place], [address], [facility] 04/05/2024 06:44:04 04/01/20 95901 Therapeutic Exercise (1:1) completed Julius Tao, PT [address], [place], [address], [facility] 03/31/2024 15:24:07 04/01/20 27613: Manual therapy completed Julius Tao, PT [address], [place], [address], [facility] 03/31/2024 15:24:07 03/29/20 26310 Therapeutic Exercise (1:1) completed Julius Tao, PT [address], [place], [address], [facility] 03/28/2024 11:04:52 03/29/20 26560: Manual therapy completed Julius Tao, PT [address], [place], [address], [facility] 03/28/2024 11:04:52 03/25/20 29401 Therapeutic Exercise (1:1) completed Josh Echevarria, TRACTOR OPERATOR LASER LEVELING [address], [place], [address], [facility] 03/25/2024 13:17:55 03/25/20 23704: Manual therapy completed Josh Echevarria, TRACTOR OPERATOR LASER LEVELING [address], [place], [address], [facility] 03/25/2024 13:17:55 03/23/20 13962 Therapeutic Exercise (1:1) completed Josh Echevarria, TRACTOR OPERATOR LASER LEVELING [address], [place], [address], [facility] 03/23/2024 11:37:37 03/23/20 96897: Manual therapy completed Josh Echevarria, TRACTOR OPERATOR LASER LEVELING [address], [place], [address], [facility] 03/23/2024 11:37:37 03/17/20 63468 Therapeutic Exercise (1:1) completed Julius Tao, PT [address], [place], [address], [facility] 03/17/2024 09:34:47 03/17/20 54126: Manual therapy completed Julius Tao, PT [address], [place], [address], [facility] 03/17/2024 07:08:38 03/15/20 73204 Therapeutic Exercise (1:1) completed Julius Tao, PT [address], [place], [address], [facility] 03/15/2024 06:43:43 03/15/20 92585: Manual therapy completed Julius Tao, PT [address], [place], [address], [facility] 03/15/2024 06:43:43 03/09/20 44859 Therapeutic Exercise (1:1) completed Josh Echevarria, TRACTOR OPERATOR LASER LEVELING [address], [place], [address], [facility] 03/09/2024 14:44:40 03/09/20 96172: Manual therapy completed Josh Scafuri, TRACTOR OPERATOR LASER LEVELING [address], [place], [address], [facility] 03/09/2024 14:44:40 03/07/20 97785 Therapeutic Exercise (1:1) completed Josh Scafuri, TRACTOR OPERATOR LASER LEVELING [address], [place], [address], [facility] 03/07/2024 12:35:25 03/07/20 47630: Manual therapy completed Josh Scafuri, TRACTOR OPERATOR LASER LEVELING [address], [place], [address], [facility] 03/07/2024 12:35:25 03/03/20 22464 Therapeutic Exercise (1:1) completed Josh Powersfuri, TRACTOR OPERATOR LASER LEVELING [address], [place], [address], [facility] 03/03/2024 12:01:17 03/03/20 65256: Manual therapy completed Josh Scafuri, TRACTOR OPERATOR LASER LEVELING [address], [place], [address], [facility] 03/03/2024 11:54:06 03/01/20 49612 Therapeutic Exercise (1:1) completed Josh Carranzari, TRACTOR OPERATOR LASER LEVELING [address], [place], [address], [facility] 03/01/2024 11:11:52 03/01/20 68953: Manual therapy completed Josh Powersfuri, TRACTOR OPERATOR LASER LEVELING [address], [place], [address], [facility] 03/01/2024 11:10:49 02/25/20 32431 Therapeutic Exercise (1:1) completed Julius Tao, PT [address], [place], [address], [facility] 02/25/2024 04:53:04 02/25/20 48480: Manual therapy completed Julius Tao, PT [address], [place], [address], [facility] 02/25/2024 04:53:04 02/19/20 59489 Therapeutic Exercise (1:1) completed Josh Echevarria, TRACTOR OPERATOR LASER LEVELING [address], [place], [address], [facility] 02/22/2024 10:27:03 02/19/20 82055: Manual therapy completed Josh Echevarria, TRACTOR OPERATOR LASER LEVELING [address], [place], [address], [facility] 02/22/2024 10:27:03 02/17/20 48362 Therapeutic Exercise (1:1) completed Josh Echevarria, TRACTOR OPERATOR LASER LEVELING [address], [place], [address], [facility] 02/17/2024 14:59:06 02/17/20 83057: Manual therapy completed Josh Echevarria, TRACTOR OPERATOR LASER LEVELING [address], [place], [address], [facility] 02/17/2024 14:59:06 02/10/20 38442 Therapeutic Exercise (1:1) completed Jluius Tao, PT [address], [place], [address], [facility] 02/10/2024 06:49:45 02/10/20 63014: Manual therapy completed Julius Tao, PT [address], [place], [address], [facility] 02/10/2024 11:48:46 02/08/20 00422 Therapeutic Exercise (1:1) completed Julius Tao PT [address], [place], [address], [facility] 02/08/2024 18:18:50 02/08/20 33687: Low complexity PT Eval completed Julius Tao, PT [address], [place], [address], [facility] 02/08/2024 18:18:55 02/08/20 24 G8420 BMI Normal, No Follow-Up Plan Required completed Julius Tao, PT [address], [place], [address], [facility] 02/08/2024 18:19:10 02/08/20 24 G8427 Current Medication Documented completed Julius Tao, PT [address], [place], [address], [facility] 02/08/2024 18:19:03 01/05/20 24 repair of rotator cuff by suture completed ABRANTORY HARKINS [facility] 02/05/2024 09:57:23 10/28/19 24 Sports Shoulder completed Jeannie Mena MD [address], [place], [address], [facility] 10/28/2023 15:06:42 01/08/20 17 Other completed ABRAN HARKINS [facility] 01/19/2024 13:37:46 01/10/20 01 Stent completed ABRAN [facility] 10/28/2023 14:01:35 hernia repair completed ABRAN HARKINS [facility] 01/19/2024 13:38:06 [facility] 13:38:31 Imaging Results None recorded. [...] Social History Question Answer Notes LastModified by [employer] ion Details LastModified Time Tobacco Smoking Status Never Smoker ABRAN velasquez [place] - [facility] 10/28/2023 14:01:35 What Is Your Relationship Status? [email or web address] Information not available 02/24/2025 Sex: Unknown Functional Status Question Answer Note LastModified by Organizat ion Details LastModified Time How many times per week do you consume alcohol? 3-4 times per week [email or web address] Information not available 02/24/2025 Do you use any illicit or recreational drugs? No [email or web address] Information not available 02/24/2025 Do you or [...] Disease N Heart Trouble Y Heart Attack (OR) N Gastrointestinal Disease N Cholesterol Y Diabetes [...] ICD10 Code Diagnosis IMO Codes Diagnosis Note [id number] MD [place] [address] [place] [address] 02/24/2025 08:26:36 03/06/2025 12:14:07 Impingement syndrome of right shoulder region [id number] 63503 M75.41 [id number] Julius Tao, PT [facility] [address] [place] [address] 03/08/2025 13:11:38 03/08/2025 16:24:18 Impingement syndrome of right shoulder region [id number] 47509 M75.41 [id number] Julius Tao PT [facility] [address] [place] [address] 03/10/2025 07:17:53 03/10/2025 09:48:20 Impingement syndrome of right shoulder region [id number] 59276 M75.41 [id number] Julius Tao, PT [facility] [address] [place] [address] 03/14/2025 08:47:17 03/14/2025 12:46:15 Impingement syndrome of right shoulder region [id number] 15776 M75.41 [id number] Julius Tao, PT [facility] [address] [place] [address] 03/17/2025 07:22:19 03/17/2025 08:31:47 Impingement syndrome of right shoulder region [id number] 17858 M75.41 [id number] Julius Tao, PT [facility] [address] [place] [address] 03/22/2025 13:51:01 03/22/2025 14:56:10 Impingement syndrome of right shoulder region [id number] 29838 M75.41 Health Concerns Section Related Observation LastModified by Organization Detai ls LastModified Time None Recorded Concern Status LastModified by Organization Details LastModified Time None Recorded Payers Encounter Date Sequence Insurance Name Policy Number Policy Marx Covered Member ID Marx Member ID Guarantor Name 03/22/2025 2 [place] [id number] Pipo Vidal [id number] Pipo Vidal 03/22/2025 1 [place] [facility] G[facility]ERNMENT SERVICES Pipo Vidal [id number] 1 [id number] Pipo Vidal Notes Date Note Type Note Provider Name and Address Organization Details Recorded Time 03/22/2025 text/html Patient states pain 0/10 at rest, pain 2/10 with movement. Julius Tao, PT [address], [place], [address], [facility] 03/23/2025 04:19:02
--- OUTSIDE RECORDS SUMMARY | 2025-03-23 11:18 | XMS_ITS | Clinical Summary ---
Author Organization [facility] Address [address] [place] [address] Phone Care Team Providers Care Pressure Steamer Tender Name Role Phone Kaleb Vilchis MD Primary Care Provider Meredith Nayak MD Unavailable [phone] Allergies No known active allergies Medications BABY [...] day. Active azelastine-flut icasone (DYMISTA) 137-50 mcg/spray [place] 1 spray by Each Nare route 2 [...] patient's age to complete this topic IPV VACCINES Aged Out No longer eligi ble [...] EDT) GLUCOSE 66(A) 70 - 100 mg/dL [facility] UREA N 20 6 - 23 mg/dL [facility] CREATININE 0.98 0.50 - 1.20 mg/dL [facility] eGFR >=60 [facility] Comment: (Abnormal if <60 mL/min/1.73m2 If patient is black, multiply by 1.21) SODIUM 138 136 - 145 mmol/L [facility] POTASSIUM 3.6 3.4 - 5.0 mmol/L [facility] CHLORIDE 104 98 - 107 mmol/L [facility] TOTAL CO2 25 22 - 31 mmol/L [facility] CALCIUM 8.7(A) 8.8 - 10.7 mg/dL [facility] MAGNESIUM 2.3 1.7 - 2.6 mg/dL [facility] ANION GAP 9 5 - 17 mmol/L [facility] 12/30/2013 7:46 AM EDT Comment:BLOOD us Conversion Provider Not In Sys LAB BLOOD ORDERAB LES Final Result [address] [id number] from Last 3 Months or Most Recently Relevant to Health Maintenance Insurance MEDICARE PART A & B [facility] CROSS MEDEX SUPPLEMENT MEDICARE PART A & B [employer] SU[employer] MEDICARE PART A & B [employer] SUPPLEMENT MEDICARE PART A & B [facility] CROSS MEDEX SUPPLEMENT MEDICARE PART A & B [employer] SUPPLEMENT MEDICARE PART A & B [employer] MEDEX SUPPLEMENT MEDICARE PART A & B [employer] SUPPLEMENT MEDICARE PART A & B [employer] MED[employer] SUPPLEMENT MEDICARE PART A & B [employer] SUPPLEMENT Care Teams Pressure Steamer Tender Relationship Specialty Start Date End Date Kaleb Vilchis MD [address] [place] [id number] PCP - General 09/14/14 Meredith Nayak MD [address] [place] [id number] Cardiology 03/19/15 Additional Source Comments The information contained in this document represents components of the legal health record. It is not the complete legal health record.[facility]
--- OUTSIDE RECORDS SUMMARY | 2025-03-23 11:18 | XMS_ITS | Continuity of Care Document ---
Author Organization [facility], OLIMPIA Villatoro PT Address [address] [place] [address] Care Team Providers Care Surgical Consultant Name Role Phone LUCRETIA NICOLE Referring Provider [phone] LUCRETIA NICOLE Primary Care Provider MENA BARNEY Clipper Counters Assessment Encounter Date Assessment Date Assessment LastModified by Organization Details LastModified Time 03/14/2025 03/14/2025 Assessment: Patient presents with improved mechanics AG. Increased posterior capsule mobility. Plan: Continue PT @ 2x/wk to decrease pain, increase strength, optimize shoulder mechanics for functional movements such as reaching and self-care. Lower trap strength. [email or web address] Not available 03/14/2025 11:59:06 Plan of Treatment Reminders Order Date Submit [...] PT FOLLOW -UP 025 07:30AM Joshcarleen Carranzari, SLITTER SERVICE AND SETTER Not available Not available Not available PT [...] PT FOLLOW -UP 025 07:00AM Josh Scafuri, SLITTER SERVICE AND SETTER Not available Not available Not available PT FOLLOW -UP 025 07:30AM Josh Scafuri, SLITTER SERVICE AND SETTER Not available Not available Not available PT FOLLOW -UP 025 07:30AM Julius Florek, PT Not available Not available Not available PT FOLLOW -UP 025 07:30AM Josh Scafuri, SLITTER SERVICE AND SETTER Not available Not available Not available Lab [...] Address Organization Details Recorded Time No complaints [id number] Active Status : 'I'; Not Available [facility] 4 09:12:21 Pain of left shoulder joint [id number] 9109 Active 2020 Status : 'A'; Not Available [facility] 4 11:12:27 Problem Notes None recorded. Procedures Surgical History Date Name Laterality Status Provider Name and Address Organization Details Recorded Time 03/22/20 19591 Therapeutic Exercise (1:1) completed Julius Tao, PT [address], [place], [address], [facility] 03/22/2025 08:11:02 03/22/20 25 99527: Manual therapy completed Julius Tao, PT [address], [place], [address], [facility] 03/22/2025 08:11:02 03/17/20 25 75177 Therapeutic Exercise (1:1) completed Julius Tao, PT [address], [place], [address], [facility] 03/17/2025 03:56:30 03/17/20 85974: Manual therapy completed Julius Tao, PT [address], [place], [address], [facility] 03/17/2025 03:56:30 03/14/20 07049 Therapeutic Exercise (1:1) completed Julius Tao, PT [address], [place], [address], [facility] 03/14/2025 03:57:28 03/14/20 23706: Manual therapy completed Julius Tao, PT [address], [place], [address], [facility] 03/14/2025 03:57:28 03/10/20 87045 Therapeutic Exercise (1:1) completed Julius Tao, PT [address], [place], [address], [facility] 03/10/2025 08:48:32 03/10/20 98863: Manual therapy completed Julius Tao, PT [address], [place], [address], [facility] 03/10/2025 08:48:42 03/08/20 28762 Therapeutic Exercise (1:1) completed Julius Tao, PT [address], [place], [address], [facility] 03/08/2025 14:53:44 03/08/20 34328: Low complexity PT Eval completed Julius Tao, PT [address], [place], [address], [facility] 03/08/2025 14:53:47 03/08/20 G8420 BMI Normal, No Follow-Up Plan Required completed Julius Tao, PT [address], [place], [address], [facility] 03/09/2025 07:01:56 03/08/20 G8427 Current Medication Documented completed Julius Tao, PT [address], [place], [address], [facility] 03/09/2025 07:01:48 05/12/19 98734 Therapeutic Exercise (1:1) completed Julius Tao, PT [address], [place], [address], [facility] 05/12/2024 08:57:53 05/12/19 69049: Manual therapy completed Julius Tao, PT [address], [place], [address], [facility] 05/12/2024 08:57:53 05/09/20 84992 Therapeutic Exercise (1:1) completed Josh Echevarria, SLITTER SERVICE AND SETTER [address], [place], [address], [facility] 05/09/2024 08:23:53 05/09/20 95538: Manual therapy completed Josh Echevarria, SLITTER SERVICE AND SETTER [address], [place], [address], [facility] 05/09/2024 08:22:09 05/02/20 85534 Therapeutic Exercise (1:1) completed Julius Tao, PT [address], [place], [address], [facility] 05/01/2024 15:44:37 05/02/20 63652: Manual therapy completed Julius Tao, PT [address], [place], [address], [facility] 05/01/2024 15:44:37 04/28/20 24 17165 Therapeutic Exercise (1:1) completed Julius Tao, PT [address], [place], [address], [facility] 04/28/2024 05:34:40 04/28/20 12855: Manual therapy completed Julius Tao, PT [address], [place], [address], [facility] 04/28/2024 05:34:40 04/26/20 77181 Therapeutic Exercise (1:1) completed Julius Tao, PT [address], [place], [address], [facility] 04/25/2024 16:17:02 04/26/20 99071: Manual therapy completed Julius Tao, PT [address], [place], [address], [facility] 04/25/2024 16:17:02 04/22/20 72155 Therapeutic Exercise (1:1) completed Julius Tao, PT [address], [place], [address], [facility] 04/21/2024 12:52:55 04/22/20 67715: Manual therapy completed Julius Tao, PT [address], [place], [address], [facility] 04/21/2024 12:52:56 04/20/20 68792 Therapeutic Exercise (1:1) completed Julius Tao, PT [address], [place], [address], [facility] 04/20/2024 11:46:40 04/20/20 76028: Manual therapy completed Julius Tao, PT [address], [place], [address], [facility] 04/20/2024 11:46:43 04/14/20 82693 Therapeutic Exercise (1:1) completed Julius Tao, PT [address], [place], [address], [facility] 04/15/2024 11:56:08 04/14/20 63124: Manual therapy completed Julius Tao, PT [address], [place], [address], [facility] 04/15/2024 11:56:00 04/11/20 27001 Therapeutic Exercise (1:1) completed Juliusfannie Tao, PT [address], [place], [address], [facility] 04/10/2024 08:24:50 04/11/20 74164: Manual therapy completed Julius Tao, PT [address], [place], [address], [facility] 04/10/2024 08:24:50 04/05/20 11916 Therapeutic Exercise (1:1) completed Julius Tao, PT [address], [place], [address], [facility] 04/05/2024 06:44:04 04/05/20 76398: Manual therapy completed Julius Tao, PT [address], [place], [address], [facility] 04/05/2024 06:44:04 04/01/20 23151 Therapeutic Exercise (1:1) completed Julius Tao, PT [address], [place], [address], [facility] 03/31/2024 15:24:07 04/01/20 90326: Manual therapy completed Julius Tao, PT [address], [place], [address], [facility] 03/31/2024 15:24:07 03/29/20 83818 Therapeutic Exercise (1:1) completed Julius Tao, PT [address], [place], [address], [facility] 03/28/2024 11:04:52 03/29/20 71288: Manual therapy completed Julius Tao, PT [address], [place], [address], [facility] 03/28/2024 11:04:52 03/25/20 94074 Therapeutic Exercise (1:1) completed Josh Echevarria, SLITTER SERVICE AND SETTER [address], [place], [address], [facility] 03/25/2024 13:17:55 03/25/20 07673: Manual therapy completed Josh Echevarria, SLITTER SERVICE AND SETTER [address], [place], [address], [facility] 03/25/2024 13:17:55 03/23/20 71146 Therapeutic Exercise (1:1) completed Josh Echevarria, SLITTER SERVICE AND SETTER [address], [place], [address], [facility] 03/23/2024 11:37:37 03/23/20 25696: Manual therapy completed Josh Echevarria, SLITTER SERVICE AND SETTER [address], [place], [address], [facility] 03/23/2024 11:37:37 03/17/20 08840 Therapeutic Exercise (1:1) completed Julius Tao, PT [address], [place], [address], [facility] 03/17/2024 09:34:47 03/17/20 12337: Manual therapy completed Julius Tao, PT [address], [place], [address], [facility] 03/17/2024 07:08:38 03/15/20 28430 Therapeutic Exercise (1:1) completed Julius Tao, PT [address], [place], [address], [facility] 03/15/2024 06:43:43 03/15/20 09623: Manual therapy completed Julius Tao, PT [address], [place], [address], [facility] 03/15/2024 06:43:43 03/09/20 34504 Therapeutic Exercise (1:1) completed Josh Echevarria, SLITTER SERVICE AND SETTER [address], [place], [address], [facility] 03/09/2024 14:44:40 03/09/20 39703: Manual therapy completed Josh Scafuri, SLITTER SERVICE AND SETTER [address], [place], [address], [facility] 03/09/2024 14:44:40 03/07/20 56831 Therapeutic Exercise (1:1) completed Josh Scafuri, SLITTER SERVICE AND SETTER [address], [place], [address], [facility] 03/07/2024 12:35:25 03/07/20 02994: Manual therapy completed Josh Scafuri, SLITTER SERVICE AND SETTER [address], [place], [address], [facility] 03/07/2024 12:35:25 03/03/20 42318 Therapeutic Exercise (1:1) completed Josh Powersfuri, SLITTER SERVICE AND SETTER [address], [place], [address], [facility] 03/03/2024 12:01:17 03/03/20 48128: Manual therapy completed Josh Scafuri, SLITTER SERVICE AND SETTER [address], [place], [address], [facility] 03/03/2024 11:54:06 03/01/20 14563 Therapeutic Exercise (1:1) completed Josh Carranzari, SLITTER SERVICE AND SETTER [address], [place], [address], [facility] 03/01/2024 11:11:52 03/01/20 77624: Manual therapy completed Josh Powersfuri, SLITTER SERVICE AND SETTER [address], [place], [address], [facility] 03/01/2024 11:10:49 02/25/20 77176 Therapeutic Exercise (1:1) completed Julius Tao, PT [address], [place], [address], [facility] 02/25/2024 04:53:04 02/25/20 03515: Manual therapy completed Julius Tao, PT [address], [place], [address], [facility] 02/25/2024 04:53:04 02/19/20 64648 Therapeutic Exercise (1:1) completed Josh Echevarria, SLITTER SERVICE AND SETTER [address], [place], [address], [facility] 02/22/2024 10:27:03 02/19/20 01448: Manual therapy completed Josh Echevarria, SLITTER SERVICE AND SETTER [address], [place], [address], [facility] 02/22/2024 10:27:03 02/17/20 83045 Therapeutic Exercise (1:1) completed Josh Echevarria, SLITTER SERVICE AND SETTER [address], [place], [address], [facility] 02/17/2024 14:59:06 02/17/20 98252: Manual therapy completed Josh Echevarria, SLITTER SERVICE AND SETTER [address], [place], [address], [facility] 02/17/2024 14:59:06 02/10/20 03036 Therapeutic Exercise (1:1) completed Julius Tao, PT [address], [place], [address], [facility] 02/10/2024 06:49:45 02/10/20 25016: Manual therapy completed Julius Tao, PT [address], [place], [address], [facility] 02/10/2024 11:48:46 02/08/20 98847 Therapeutic Exercise (1:1) completed Julius Tao PT [address], [place], [address], [facility] 02/08/2024 18:18:50 02/08/20 14652: Low complexity PT Eval completed Julius Tao, PT [address], [place], [address], [facility] 02/08/2024 18:18:55 02/08/20 24 G8420 BMI Normal, No Follow-Up Plan Required completed Julius Tao, PT [address], [place], [address], [facility] 02/08/2024 18:19:10 02/08/20 24 G8427 Current Medication Documented completed Julius Tao, PT [address], [place], [address], [facility] 02/08/2024 18:19:03 01/05/20 24 repair of rotator cuff by suture completed ABRANTORY HARKINS [facility] 02/05/2024 09:57:23 10/28/19 24 Sports Shoulder completed Jeannie Mena MD [address], [place], [address], [facility] 10/28/2023 15:06:42 01/08/20 17 Other completed ABRAN HARKINS [facility] 01/19/2024 13:37:46 01/10/20 01 Stent completed ABRAN [facility] 10/28/2023 14:01:35 hernia repair completed ABRAN HARKINS [facility] 01/19/2024 13:38:06 [facility] 13:38:31 Imaging Results None recorded. Procedure [...] Social History Question Answer Notes LastModified by [employer] ion Details LastModified Time Tobacco Smoking Status Never Smoker ABRAN velasquez [place] - [facility] 10/28/2023 14:01:35 What Is Your Relationship Status? [email or web address] Information not available 02/24/2025 Sex: Unknown Functional Status Question Answer Note LastModified by Organizat ion Details LastModified Time How many times per week do you consume alcohol? 3-4 times per week [email or web address] Information not available 02/24/2025 Do you use any illicit or recreational drugs? No Information not available 02/24/2025 Do you or have you ever used any other forms of tobacco or nicotine? No [email or web address] Information not available 10/28/2023 What is your level of alcohol consumption? Occasional [email or web address] Information not available 02/24/2025 Mental Status None recorded. Family History Nothing Reported. Medical History Condition Response Allergies/Hayfever N Coronary Artery Disease N Anxiety/Depression N Breathing or lung disorders N Emphysema N Nerve Disorders N Thyroid Problems N COPD N Pacemaker N Anemia N Kidney/Bladder Problems N Vascular Disease N Heart Trouble Y Heart Attack (PR) N Gastrointestinal Disease N Cholesterol Y Diabetes [...] ICD10 Code Diagnosis IMO Codes Diagnosis Note [id number] MD OLIMPIA Bateman [facility] [address] [address] 02/24/2025 08:26:36 03/06/2025 12:14:07 Impingement syndrome of right shoulder region [id number] 92085 M75.41 [id number] Julius Tao, PT [facility] [address] [place] [address] 03/08/2025 13:11:38 03/08/2025 16:24:18 Impingement syndrome of right shoulder region [id number] 39018 M75.41 [id number] Julius Tao PT [facility] [address] [place] [address] 03/10/2025 07:17:53 03/10/2025 09:48:20 Impingement syndrome of right shoulder region [id number] 89243 M75.41 [id number] Julius Tao, PT [facility] [address] [place] [address] 03/14/2025 08:47:17 03/14/2025 12:46:15 Impingement syndrome of right shoulder region [id number] 49625 M75.41 Health Concerns Section Related Observation LastModified by Organization Detai ls LastModified Time None Recorded Concern Status LastModified by Organization Details LastModified Time None Recorded Payers Encounter Date Sequence Insurance Name Policy Number Policy Marx Covered Member ID Marx Member ID Guarantor Name 03/14/2025 2 [place] [id number] Pipo Vidal [id number] Pipo Vidal 03/14/2025 1 [place] [employer] Pipo Vidal [id number] Pipo Vidal Notes Date Note Type Note Provider Name and Address Organization Details Recorded Time 03/14/2025 text/html Patient states pain 0/10 at rest, pain 2/10 with movement. Julius Tao[facility] [address] [facility] [address], [place], [address], [facility] 03/14/2025 11:59:29
--- OUTSIDE RECORDS SUMMARY | 2025-03-23 11:18 | XMS_ITS | Continuity of Care Document ---
Author Organization [facility] Len Hutchins [facility], OLIMPIA Villatoro PT Address [address] [place] [address] Care Team Providers Care Quality Cloth Tester Name Role Phone LUCRETIA NICOLE Referring Provider [phone] LUCRETIA NICOLE Primary Care Provider MENA BARNEY Sterilizer Machine Operator Assessment Encounter Date Assessment Date Assessment LastModified by Organization Details LastModified Time 03/17/2025 03/17/2025 Assessment: Patient presents with improved mechanics AG. Increased posterior capsule mobility. Pain with D1 flexion. Plan: Continue PT @ 2x/wk to decrease pain, increase strength, optimize shoulder mechanics for functional movements such as reaching and self-care. Lower trap strength. [email or web address] Not available 03/17/2025 08:27:42 Plan of Treatment Reminders Order Date Submit Date Provider Last Modified By Organization Details Last Modified Time Details Appointments PT FOLLOW -UP 025 10:30AM Julius Grecoek, PT Not available Not available Not available PT FOLLOW -UP 025 08:00AM Juliusfanine Grecoek, PT Not available Not available Not available PT FOLLOW -UP 025 07:00AM Julius Fannieek, PT Not available Not available Not available PT ANY 30 025 07:00AM Julius Fannieek, PT Not available Not available Not available PT FOLLOW -UP 025 07:30AM Joshcarleen Carranzari, THREAD DRAWER Not available Not available Not available PT FOLLOW -UP 025 01:00PM Juliusfannie Tao, PT Not available Not available Not available PT FOLLOW -UP 025 08:00AM Julius Florek, PT Not available Not available Not available PT FOLLOW -UP 025 08:00AM Julius Florek, PT Not available Not available Not available PT FOLLOW -UP 025 07:30AM Julius Florek, PT Not available Not available Not available PT FOLLOW -UP 025 07:00AM Josh Scafuri, THREAD DRAWER Not available Not available Not available PT FOLLOW -UP 025 07:30AM Josh Scafuri, THREAD DRAWER Not available Not available Not available PT FOLLOW -UP 025 07:30AM Julius Florek, PT Not available Not available Not available PT FOLLOW -UP 025 07:30AM Josh Scafuri, THREAD DRAWER Not available Not available Not available Lab [...] Address Organization Details Recorded Time No complaints [id number] Active Status : 'I'; Not Available [facility] 4 09:12:21 Pain of left shoulder joint [id number] 9109 Active 2020 Status : 'A'; Not Available [facility] 4 11:12:27 Problem Notes None recorded. Procedures Surgical History Date Name Laterality Status Provider Name and Address Organization Details Recorded Time 03/22/20 25 84140 Therapeutic Exercise (1:1) completed Julius Tao, PT [address], [place], [address], [facility] 03/22/2025 08:11:02 03/22/20 25 90109: Manual therapy completed Julius Tao, PT [address], [place], [address], [facility] 03/22/2025 08:11:02 03/17/20 25 69444 Therapeutic Exercise (1:1) completed Julius Tao, PT [address], [place], [address], [facility] 03/17/2025 03:56:30 03/17/20 37633: Manual therapy completed Julius Tao, PT [address], [place], [address], [facility] 03/17/2025 03:56:30 03/14/20 36782 Therapeutic Exercise (1:1) completed Julius Tao, PT [address], [place], [address], [facility] 03/14/2025 03:57:28 03/14/20 00563: Manual therapy completed Julius Tao, PT [address], [place], [address], [facility] 03/14/2025 03:57:28 03/10/20 35108 Therapeutic Exercise (1:1) completed Julius Tao, PT [address], [place], [address], [facility] 03/10/2025 08:48:32 03/10/20 70289: Manual therapy completed Julius Tao, PT [address], [place], [address], [facility] 03/10/2025 08:48:42 03/08/20 44381 Therapeutic Exercise (1:1) completed Julius Tao, PT [address], [place], [address], [facility] 03/08/2025 14:53:44 03/08/20 32837: Low complexity PT Eval completed Julius Tao, PT [address], [place], [address], [facility] 03/08/2025 14:53:47 03/08/20 G8420 BMI Normal, No Follow-Up Plan Required completed Julius Tao, PT [address], [place], [address], [facility] 03/09/2025 07:01:56 03/08/20 G8427 Current Medication Documented completed Julius Tao, PT [address], [place], [address], [facility] 03/09/2025 07:01:48 05/12/19 82441 Therapeutic Exercise (1:1) completed Julius Tao, PT [address], [place], [address], [facility] 05/12/2024 08:57:53 05/12/19 25 14782: Manual therapy completed Julius Tao, PT [address], [place], [address], [facility] 05/12/2024 08:57:53 05/09/20 24 32548 Therapeutic Exercise (1:1) completed Josh Echevarria, THREAD DRAWER [address], [place], [address], [facility] 05/09/2024 08:23:53 05/09/20 24 92217: Manual therapy completed Josh Echevarria, THREAD DRAWER [address], [place], [address], [facility] 05/09/2024 08:22:09 05/02/20 19611 Therapeutic Exercise (1:1) completed Julius Tao, PT [address], [place], [address], [facility] 05/01/2024 15:44:37 05/02/20 24 27505: Manual therapy completed Julius Tao, PT [address], [place], [address], [facility] 05/01/2024 15:44:37 04/28/20 24 27642 Therapeutic Exercise (1:1) completed Julius Tao, PT [address], [place], [address], [facility] 04/28/2024 05:34:40 04/28/20 24 84005: Manual therapy completed Julius Tao, PT [address], [place], [address], [facility] 04/28/2024 05:34:40 04/26/20 43053 Therapeutic Exercise (1:1) completed Julius Tao, PT [address], [place], [address], [facility] 04/25/2024 16:17:02 04/26/20 80619: Manual therapy completed Julius Tao, PT [address], [place], [address], [facility] 04/25/2024 16:17:02 04/22/20 85763 Therapeutic Exercise (1:1) completed Julius Tao, PT [address], [place], [address], [facility] 04/21/2024 12:52:55 04/22/20 04650: Manual therapy completed Julius Tao, PT [address], [place], [address], [facility] 04/21/2024 12:52:56 04/20/20 57326 Therapeutic Exercise (1:1) completed Julius Tao, PT [address], [place], [address], [facility] 04/20/2024 11:46:40 04/20/20 35962: Manual therapy completed Julius Tao, PT [address], [place], [address], [facility] 04/20/2024 11:46:43 04/14/20 76610 Therapeutic Exercise (1:1) completed Julius Tao, PT [address], [place], [address], [facility] 04/15/2024 11:56:08 04/14/20 19229: Manual therapy completed Julius Tao, PT [address], [place], [address], [facility] 04/15/2024 11:56:00 04/11/20 34028 Therapeutic Exercise (1:1) completed Julius Tao, PT [address], [place], [address], [facility] 04/10/2024 08:24:50 04/11/20 45354: Manual therapy completed Julius Tao, PT [address], [place], [address], [facility] 04/10/2024 08:24:50 04/05/20 51514 Therapeutic Exercise (1:1) completed Julius Tao, PT [address], [place], [address], [facility] 04/05/2024 06:44:04 04/05/20 90776: Manual therapy completed Julius Tao, PT [address], [place], [address], [facility] 04/05/2024 06:44:04 04/01/20 99738 Therapeutic Exercise (1:1) completed Julius Tao, PT [address], [place], [address], [facility] 03/31/2024 15:24:07 04/01/20 88775: Manual therapy completed Julius Tao, PT [address], [place], [address], [facility] 03/31/2024 15:24:07 03/29/20 94429 Therapeutic Exercise (1:1) completed Julius Tao, PT [address], [place], [address], [facility] 03/28/2024 11:04:52 03/29/20 85672: Manual therapy completed Julius Tao, PT [address], [place], [address], [facility] 03/28/2024 11:04:52 03/25/20 97373 Therapeutic Exercise (1:1) completed Josh Echevarria, THREAD DRAWER [address], [place], [address], [facility] 03/25/2024 13:17:55 03/25/20 82849: Manual therapy completed Josh Echevarria, THREAD DRAWER [address], [place], [address], [facility] 03/25/2024 13:17:55 03/23/20 04111 Therapeutic Exercise (1:1) completed Josh Echevarria, THREAD DRAWER [address], [place], [address], [facility] 03/23/2024 11:37:37 03/23/20 93169: Manual therapy completed Josh Echevarria, THREAD DRAWER [address], [place], [address], [facility] 03/23/2024 11:37:37 03/17/20 28529 Therapeutic Exercise (1:1) completed Julius Tao, PT [address], [place], [address], [facility] 03/17/2024 09:34:47 03/17/20 22567: Manual therapy completed Julius Tao, PT [address], [place], [address], [facility] 03/17/2024 07:08:38 03/15/20 03787 Therapeutic Exercise (1:1) completed Julius Tao, PT [address], [place], [address], [facility] 03/15/2024 06:43:43 03/15/20 50265: Manual therapy completed Julius Tao, PT [address], [place], [address], [facility] 03/15/2024 06:43:43 03/09/20 19884 Therapeutic Exercise (1:1) completed Josh Echevarria, THREAD DRAWER [address], [place], [address], [facility] 03/09/2024 14:44:40 03/09/20 05296: Manual therapy completed Josh Scafuri, THREAD DRAWER [address], [place], [address], [facility] 03/09/2024 14:44:40 03/07/20 17138 Therapeutic Exercise (1:1) completed Josh Scafuri, THREAD DRAWER [address], [place], [address], [facility] 03/07/2024 12:35:25 03/07/20 13491: Manual therapy completed Josh Scafuri, THREAD DRAWER [address], [place], [address], [facility] 03/07/2024 12:35:25 03/03/20 96359 Therapeutic Exercise (1:1) completed Josh Powersfuri, THREAD DRAWER [address], [place], [address], [facility] 03/03/2024 12:01:17 03/03/20 88458: Manual therapy completed Josh Scafuri, THREAD DRAWER [address], [place], [address], [facility] 03/03/2024 11:54:06 03/01/20 60910 Therapeutic Exercise (1:1) completed Josh Powersfuri, THREAD DRAWER [address], [place], [address], [facility] 03/01/2024 11:11:52 03/01/20 07840: Manual therapy completed Josh Scafuri, THREAD DRAWER [address], [place], [address], [facility] 03/01/2024 11:10:49 02/25/20 62413 Therapeutic Exercise (1:1) completed Julius Tao, PT [address], [place], [address], [facility] 02/25/2024 04:53:04 02/25/20 85673: Manual therapy completed Julius Tao, PT [address], [place], [address], [facility] 02/25/2024 04:53:04 02/19/20 22337 Therapeutic Exercise (1:1) completed Josh Echevarria, THREAD DRAWER [address], [place], [address], [facility] 02/22/2024 10:27:03 02/19/20 18643: Manual therapy completed Josh Echevarria, THREAD DRAWER [address], [place], [address], [facility] 02/22/2024 10:27:03 02/17/20 89789 Therapeutic Exercise (1:1) completed Josh Echevarria, THREAD DRAWER [address], [place], [address], [facility] 02/17/2024 14:59:06 02/17/20 76492: Manual therapy completed Josh Echevarria, THREAD DRAWER [address], [place], [address], [facility] 02/17/2024 14:59:06 02/10/20 36887 Therapeutic Exercise (1:1) completed Julius Tao, PT [address], [place], [address], [facility] 02/10/2024 06:49:45 02/10/20 59426: Manual therapy completed Julius Tao, PT [address], [place], [address], [facility] 02/10/2024 11:48:46 02/08/20 33448 Therapeutic Exercise (1:1) completed Julius Tao PT [address], [place], [address], [facility] 02/08/2024 18:18:50 02/08/20 50159: Low complexity PT Eval completed Julius Tao, PT [address], [place], [address], [facility] 02/08/2024 18:18:55 02/08/20 24 G8420 BMI Normal, No Follow-Up Plan Required completed Julius Tao, PT [address], [place], [address], [facility] 02/08/2024 18:19:10 02/08/20 24 G8427 Current Medication Documented completed Julius Tao, PT [address], [place], [address], [facility] 02/08/2024 18:19:03 01/05/20 24 repair of rotator cuff by suture completed ABRAN HARKINS [facility] 02/05/2024 09:57:23 10/28/19 24 Sports Shoulder completed Jeannie Mena MD [address], [place], [address], [facility] 10/28/2023 15:06:42 01/08/20 17 Other completed ABRAN HARKINS [facility] 01/19/2024 13:37:46 01/10/20 01 [facility] 14:01:35 hernia repair completed ABRAN HARKINS [facility] 01/19/2024 13:38:06 cardiac catheterization completed ABRAN SHAHANA [facility] 01/19/2024 13:38:31 Imaging Results None [...] Status Never Smoker ABRAN velasquez [place] - [place] [facility] 10/28/2023 14:01:35 What Is Your Relationship Status? [email or web address] Information not available 02/24/2025 Sex: Unknown Functional Status Question Answer Note LastModified by Organizat ion Details LastModified Time How many times per week do you consume alcohol? 3-4 times per week [email or web address] Information not available 02/24/2025 Do you use any illicit or recreational drugs? No [email or web address] Information not available 02/24/2025 Do you or have you ever used any other forms of tobacco or nicotine? No [email or web address] Information not available 10/28/2023 What is your level of alcohol consumption? Occasional [email or web address] Information not available 02/24/2025 Mental Status None recorded. Family History Nothing Reported. Medical History Condition Response Coronary Artery Disease N Anxiety/Depression N Emphysema N COPD N Pacemaker N Vascular Disease N Heart Trouble Y Gastrointestinal Disease N Autoimmune disease N Orthotics N Arthritis N Blood Clot N Acid Reflux (GERD) N Cancer N Stroke N Circulation Problems N Rheumatoid Arthritis N Arrhythmia N Headaches N Fibromyalgia N Allergies/Hayfever N Breathing or lung disorders N Nerve Disorders N Thyroid Problems N Kidney/Bladder Problems N Anemia N Heart Attack (HI) N Cholesterol Y Diabetes N Bleeding Disorder N Seizures/Epilepsy N AIDS/HIV N Congestive Heart Failure (CHF) N Asthma N Peripheral Vascular Disease N Sleep Apnea Y Hepatitis N Heart Disease N Pulmonary Embolism N Hypertension Y Osteoporosis N Past Encounters Encounter ID Performer Location Encounter Start Date Encounter Closed Date Diagnosis/Indication Diagnosis SNOMED-CT Code Diagnosis ICD10 Code Diagnosis IMO Codes Diagnosis Note [id number] MD [facility] [address] [address] 02/24/2025 08:26:36 03/06/2025 12:14:07 Impingement syndrome of right shoulder region [id number] 75428 M75.41 [id number] Julius Tao, PT [facility] [address] [place] [address] 03/08/2025 13:11:38 03/08/2025 16:24:18 Impingement syndrome of right shoulder region [id number] 86088 M75.41 [id number] Julius Tao PT [facility] [address] [place] [address] 03/10/2025 07:17:53 03/10/2025 09:48:20 Impingement syndrome of right shoulder region [id number] 08566 M75.41 [id number] Julius Tao, PT [facility] [address] [place] [address] 03/14/2025 08:47:17 03/14/2025 12:46:15 Impingement syndrome of right shoulder region [id number] 74581 M75.41 [id number] Julius Tao, PT [facility] [address] [place] [address] 03/17/2025 07:22:19 03/17/2025 08:31:47 Impingement syndrome of right shoulder region [id number] 51264 M75.41 Health Concerns Section Related Observation LastModified by Organization Detai ls LastModified Time None Recorded Concern Status LastModified by Organization Details LastModified Time None Recorded Payers Encounter Date Sequence Insurance Name Policy Number Policy Marx Covered Member ID Marx Member ID Guarantor Name 03/17/2025 2 [place] [id number] Pipo Vidal [id number] Pipo Vidal 03/17/2025 1 [place] [employer] Pipo Vidal [id number] Pipo Vidal Notes Date Note Type Note Provider Name and Address Organization Details Recorded Time 03/17/2025 text/html Patient states pain 0/10 at rest, pain 2/10 with movement. Julius Tao, PT [address], [place], [address], [facility] 03/17/2025 08:28:03
== END 2025-03-23 09:44 | disposition home or self-care (01) ==
LOC: HO.BBR 09:43
PROVIDERS: PCP Physician Assistant Medical; Visit Provider Internal Medicine Hematology & Oncology
DX: D45 Polycythemia vera (principal)
CPT/HCPCS: 85014; 85018; 99195

== ENCOUNTER 2025-04-05 09:44 | Outpatient (REF) | payer MEDICARE, SELFPAY ==
--- OUTSIDE RECORDS SUMMARY | 2025-04-05 11:06 | XMS_ITS | Clinical Summary ---
Author Organization [facility] Address [address] [place] [address] Phone Care Team Providers Care Coal Screener Name Role Phone Pankaj Storey Primary Care [...] 02/06/2025 9:00 AM EDT Consult Pulmonology - [place] [address] [facility] [address] [place] [address] Jessica Ulrich MD Mild intermittent asthma, unspecified whether complicated (Primary Dx) 01/27/2025 9:44 AM EDT - 01/27/2025 11:59 PM EDT Hospital Encounter [facility] [address] [place] [address] Cough variant asthma Discharge Disposition: Home or [...] from the original result were not included. [facility] [address] [place] [address] Pulmonary Functions Report Date of service: 01/27/25 [...] Result from Last 3 Months Insurance MEDICARE [facility] Care Teams Coal Screener Relationship Specialty Start Date End Date Pankaj Storey PA [id number] [address] PCP - General Internal Medicine 01/26/25
== END 2025-04-05 09:45 | disposition home or self-care (01) ==
LOC: HO.BBR 09:44
PROVIDERS: PCP Physician Assistant Medical; Visit Provider Internal Medicine Hematology & Oncology
DX: D45 Polycythemia vera (principal)
CPT/HCPCS: 85018; 99195

== ENCOUNTER 2025-04-19 09:58 | Outpatient (REF) | payer MEDICARE, SELFPAY | END 2025-04-19 09:59 | disposition home or self-care (01) | LOC: HO.BBR 09:58 | PROVIDERS: PCP Physician Assistant Medical; Visit Provider Internal Medicine Hematology & Oncology | DX: D45 Polycythemia vera (principal) | CPT/HCPCS: 85014; 85018; 99195 ==

== ENCOUNTER 2025-05-09 09:46 | Outpatient (REF) | payer MEDICARE, SELFPAY ==
--- OUTSIDE RECORDS SUMMARY | 2025-05-09 12:35 | XMS_ITS | Encounter Summary ---
Author Organization Valery Lehman [facility] Address [address] [place] [address] Care Team Providers Care Stem Threshing Machine Operator Name Role Phone Shay Isaac MD Primary Care Provider [phone] Encounter Details Date Type Department Care Team (Late st Contact Info) Description 01/23/2010 Clinical Conversion Encounter Department of Urology [facility]rology [address] [place] [address] Silver Brush MD [address] [place] [address] Social History Tobacco Use Types Packs/Day Years Used Date Smoking Tobacco: Never Assessed Sex and Gender Information Value Date Recorded Sex Assigned at Not on file Legal Sex Male 5:00 PM EST Gender Identity Not on file Sexual Orientation Not on file documented as of this encounter Progress Notes * Silver Brush MD - 06/01/2014 6:21 AM EST [id number],RICHARD [place], [place]. UROLOGY CJ DEXTER 02/18/2010 # [id number] : 1955 Second Visit ID: [id number] Visit ID: [id number] Mr. Dexter is a pleasant 54-year-old gentleman who had previously seen Dr. Gomes with lower urinary tract symptoms. On 01/10/2010, he underwent cystoscopy with hydrodistention. The patient had a very good result. He reports that he is much better than he was before. He has cut down on the amount of wine that he drinks. He is voiding every two hours during the day and has nocturia x3. He still remains on Flomax and Avodart. He is drinking lots of water during the course of the day. Past medical history, past surgical history, review of systems, family history, social history, allergies, medications, and physical examination are unchanged from previously documented history and physical from November 30, 2009, by Dr. Mika Gomes. Bladder scan performed today in the office revealed a postvoid residual 19 mL. DECISION MAKING: In summary, Mr. Dexter is a pleasant 54-year-old gentleman with symptoms suggestive of interstitial cystitis who now presents for evaluation. He has had a very good response to the cystoscopy with hydrodistention procedure. I have asked him to continue on his Flomax and Avodart for the time being. I have also urged him to cut back his intake of water, which should help him overall with his symptoms. The patient will do so. He will return to see me back in six months or sooner should he have any further issues. Silver Brush MD [phone] [id number] J: [id number] CC: Silver Brush MD, <Referring> Shay Isaac MD, <Second referring Dr Name> THIS DOCUMENT WAS ELECTRONICALLY AUTHENTICATED BY Silver Brush MD ON 03/18/2010 07:20:19 PROGRESS NOTE [facility] * [address] [place] [address] * [phone] Page 1 of 1 documented in this encounter Miscellaneous Notes * Telephone Encounter - Silver Brush MD - 05/31/2014 2:59 PM EST [id number],RICHARD REVISED [facility] - [place], [place]. Recorded as Task Date: 01/23/2010 12:11 PM, Created By: Crystal Arias Task Name: Results-Call Back Assigned To: Crystal Arias Regarding Patient: CJ DEXTER, Status: Active Comment: Crystal Arias - 23 Jan 2010 12:11 PM TASK CREATED Caller: Self; ; Please call pt with his pathology results SILVER BRUSH - 23 Jan 2010 4:13 PM TASK REPLIED TO: Previously Assigned To SILVER BRUSH, Spoke to the patient. All set. Thanks! CTN Electronically signed by:Crystal Arias Jan 23 2010 5:00PM EST documented in this encounter Plan of Treatment Not on file documented as of this encounter Visit Diagnoses Not on filedocumented in this encounter Care Teams Stem Threshing Machine Operator Relationship Specialty Start Date End Date Shay Isaac MD PCP - General 03/20/14 documented as of this encounter
--- OUTSIDE RECORDS SUMMARY | 2025-05-09 12:35 | XMS_ITS | Clinical Summary ---
Author Organization [facility] Address [address] [place] [address] Phone Care Team Providers Care Milk Treater Name Role Phone Pankaj Storey Primary Care [...] 6.7 g 1 5 02/07/20 26 Active Social History Tobacco Use Types Packs/Day Years [...] PM EDT Sexual Orientation Not on file Last Filed [...] on patient's age to complete this topic Insurance MEDICARE [facility] Care Teams Milk Treater Relationship Specialty Start Date End Date Pankaj Storey [place] [address] [id number] PCP - General Internal Medicine 01/26/25
--- OUTSIDE RECORDS SUMMARY | 2025-05-09 12:35 | XMS_ITS | Encounter Summary ---
Author Organization Valery Lehman [facility] Address [address] [place] [address] Care Team Providers Care Education Reviewer Name Role Phone Shay Isaac MD Primary Care Provider [phone] Encounter Details Date Type Department Care Team (Late st Contact Info) Description 05/27/2010 Clinical Conversion Encounter Department of Urology [facility] Urology [address] [place] [address] Silver Brush MD [address] [place] [address] Social History Tobacco Use Types Packs/Day Years Used Date Smoking Tobacco: Never Assessed Sex and Gender Information Value Date Recorded Sex Assigned at Not on file Legal Sex Male 5:00 PM EST Gender Identity Not on file Sexual Orientation Not on file documented as of this encounter Progress Notes * Silver Brush MD - 06/01/2014 4:18 PM EST [id number],RICHARD [place], [place]. UROLOGY CJ DEXTER 05/27/2010 # [id number] : 1955 Second Visit ID: [id number] Visit ID: [id number] Mr. Dexter is a pleasant 54-year-old gentleman with a history of interstitial cystitis who presents today in followup. He has been seeing Dr. Contreras [place] for this as well. He did undergo a cystoscopy with hydrodistention procedure on January 10, 2010. He did have three months of very good result. He since reports that he does get intermittent suprapubic discomfort that comes and goes. He states that when he started drinking cranberry juice, he had five days where he has not had any symptoms. However, he does feel that his symptoms are still very difficult to alleviate. He still remains on Flomax and Avodart. Past medical history, past surgical history, review of systems, family history, social history, allergies, medications, and physical exam is unchanged from previously documented history and physical from February 18, 2010. Bladder scan in the office today revealed a postvoid residual of 0 mL. DECISION MAKING: In summary, Mr. Dexter is a pleasant 54-year-old gentleman with symptoms suggestive of chronic pelvic pain and interstitial cystitis. At this point, I have asked him to continue the Flomax and Avodart. I have offered him an additional medication such as Elmiron 100 mg two times a day in hopes that this improves his symptoms. He did state that he would try this medication. I have offered him intravesical therapy with DMSO, which he is not interested at this time. Certainly, if he fails then this is the likely direction that we will proceed in. The patient understands this and agrees. Total time spent with the patient today was 25 minutes, greater than 50% of which was in consultation and coordination of care. I also included at this time the time spent reviewing his notes from his outside physician's office. Silver Brush MD [phone] [id number] J: [id number] CC: Shay Isaac MD, <Referring> THIS DOCUMENT WAS ELECTRONICALLY AUTHENTICATED BY Silver Brush MD ON 06/30/2010 07:09:48 PROGRESS NOTE [facility] * [address] [place] [address], [place] [address] * [phone] Page 1 of 1 documented in this encounter Plan of Treatment Not on file documented as of this encounter Visit Diagnoses Not on filedocumented in this encounter Care Teams Education Reviewer Relationship Specialty Start Date End Date Shay Isaac MD [phone] (work) PCP - General 03/20/14 documented as of this encounter
--- OUTSIDE RECORDS SUMMARY | 2025-05-09 12:35 | XMS_ITS | Clinical Summary ---
Author Organization [facility] Address [address] [place] [address] Phone Care Team Providers Care Weed Cutter Name Role Phone Kaleb Vilchis MD Primary Care Provider Meredith Nayak MD Unavailable [phone] Allergies No known active allergies Medications BABY [...] day. Active azelastine-flut icasone (DYMISTA) 137-50 mcg/spray [place] 1 spray by Each Nare route 2 [...] EDT) GLUCOSE 66(A) 70 - 100 mg/dL [facility] UREA N 20 6 - 23 mg/dL [facility] CREATININE 0.98 0.50 - 1.20 mg/dL [facility] eGFR >=60 [facility] Comment: (Abnormal if <60 mL/min/1.73m2 If patient is black, multiply by 1.21) SODIUM 138 136 - 145 mmol/L [facility] POTASSIUM 3.6 3.4 - 5.0 mmol/L [facility] CHLORIDE 104 98 - 107 mmol/L [facility] TOTAL CO2 25 22 - 31 mmol/L [facility] CALCIUM 8.7(A) 8.8 - 10.7 mg/dL [facility] MAGNESIUM 2.3 1.7 - 2.6 mg/dL [facility] ANION GAP 9 5 - 17 mmol/L [facility] 12/30/2013 7:46 AM EDT Comment:BLOOD us Conversion Provider Not In Sys LAB BLOOD ORDERAB LES Final Result [address] [address] from Last 3 Months or Most Recently Relevant to Health Maintenance Insurance MEDICARE PART A & B [employer] SUPPLEMENT MEDICARE PART A & B [employer] MEDEX SUPPLEMENT MEDICARE PART A & B [employer] MEDEX SUPPLEMENT MEDICARE PART A & B [employer] CROSS MEDEX SUPPLEMENT MEDICARE PART A & B [employer] MEDEX SUPPLEMENT MEDICARE PART A & B [employer] MED[employer] SUPPLEMENT MEDICARE PART A & B [employer] MED[employer] SUPPLEMENT MEDICARE PART A & B [employer] MED[employer] SUPPLEMENT MEDICARE PART A & B [employer] MEDEX SUPPLEMENT Care Teams Weed Cutter Relationship Specialty Start Date End Date Kaleb Vilchis MD [address] [place] [address] PCP - General 09/14/14 Meredith Nayak MD [address] [place] [address] Cardiology 03/19/15 Additional Source Comments The information contained in this document represents components of the legal health record. It is not the complete legal health record.[facility]
--- OUTSIDE RECORDS SUMMARY | 2025-05-09 12:35 | XMS_ITS | Clinical Summary ---
Author Organization aVlery Lehman [facility] Address [address] [place] [address] Care Team Providers Care Manager Latin Name Role Phone Shay Isaac MD Primary Care Provider [phone] Allergies Active Allergy Reactions Criticality Noted Date Comments No Known Drug Allergies Other (See Comments) Medications ELMIRON 100 mg capsule TAKE 1 CAPSULE 3 TIMES DAILY BEFORE MEALS. 07/29/2010 Active Active Problems Problem Noted Date Diagnosed Date Hypercholesterolemia 05/27/2010 Overview (07/10/2014): Hypercholesterolemia Hypertension 05/27/2010 Overview (07/10/2014): Hypertension Chronic coronary artery disease 05/27/2010 Overview (07/10/2014): Coronary Artery Disease Chronic interstitial cystitis 05/27/2010 Overview (07/10/2014): Chronic Interstitial Cystitis Social History Tobacco Use Types Packs/Day Years Used Date Smoking Tobacco: Never Assessed Sex and Gender Information Value Date Recorded Sex Assigned at Not on file Legal Sex Male 5:00 PM EST Gender Identity Not on file Sexual Orientation Not on file Plan of Treatment Not on file Advance Directives Documents on File Type Date Recorded 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
--- OUTSIDE RECORDS SUMMARY | 2025-05-09 12:35 | XMS_ITS | Encounter Summary ---
Author Organization Valery Lehman [facility] Address [address] [place] [address] Care Team Providers Care Registry Nurse Name Role Phone Shay Isaac MD Primary Care Provider [phone] Encounter Details Date Type Department Care Team (Late st Contact Info) Description 04/25/2010 Clinical Conversion Encounter Department of Urology [facility]rology [address] [place] [address] Silver Abbott MD [address] [place] [address] Social History Tobacco Use Types Packs/Day Years Used Date Smoking Tobacco: Never Assessed Sex and Gender Information Value Date Recorded Sex Assigned at Not on file Legal Sex Male 5:00 PM EST Gender Identity Not on file Sexual Orientation Not on file documented as of this encounter Miscellaneous Notes * Telephone Encounter - Silver Abbott MD - 06/01/2014 1:22 PM EST [id number],RICHARD REVISED [facility] - [place], [place]. Recorded as Task Date: 04/25/2010 10:39 AM, Created By: Crystal Arias Task Name: Physician-Call Back Assigned To: Crystal Arias Regarding Patient: CJ DEXTER, Status: Active Comment: Crystal Arias - 25 Apr 2010 10:39 AM TASK CREATED Caller: Self; ; (Day) Dr. Abbott pt had a cystoscopy back in January. Over the past month he's been very sore. Sometimes when he wakes up in the morning is sore and can't lay down in his stomach. He would like to speak with you SILVER ABBOTT - 25 Apr 2010 3:35 PM TASK REPLIED TO: Previously Assigned To KEARA,SILVER Rojas, Spoke to the patient about his concerns. Complaining of soreness in the groin, however, no other symptoms such as fever, chills, swelling. CTN Electronically signed by:Crystal Arias Apr 25 2010 3:40PM EST documented in this encounter Plan of Treatment Not on file documented as of this encounter Visit Diagnoses Not on filedocumented in this encounter Care Teams Registry Nurse Relationship Specialty Start Date End Date Shay Isaac MD PCP - General 03/20/14 documented as of this encounter
--- OUTSIDE RECORDS SUMMARY | 2025-05-09 12:35 | XMS_ITS | Encounter Summary ---
Author Organization Valery Lehman [facility] Address [address] [place] [address] Care Team Providers Care Supervisor Varnish Name Role Phone Shay Isaac MD Primary Care Provider [phone] Encounter Details Date Type Department Care Team (Late st Contact Info) Description 01/10/2010 Clinical Conversion Encounter GENERAL CONVERSION Adriana Lozano RN Social History Tobacco Use Types Packs/Day Years Used Date Smoking Tobacco: Never Assessed Sex and Gender Information Value Date Recorded Sex Assigned at Not on file Legal Sex Male 5:00 PM EST Gender Identity Not on file Sexual Orientation Not on file documented as of this encounter Miscellaneous Notes * Telephone Encounter - Adriana Lozano RN - 05/31/2014 2:59 PM EST [id number] STRINGER [facility] TELEPHONE MEMORANDUM CJ DEXTER 01/10/2010 # [id number] VISIT ID: [id number] : 1955 POST OPERATIVE FOLLOW UP CALL Date patient called : 01/11/10 Date of Procedure: 01/10/10 RN: karine ADULT x PEDI 1. Do you have excessive pain or discomfort that is not relieved by pain medication? no 2. Is there any excessive drainage or bleeding on your dressing? no 3. Is there swelling with cast or problems with sensation? na 4. Are you having any problems tolerating fluids or food? no 5. Do you have any problems voiding? no 6. Do you have a fever? no What is the temp? 7. How would you describe the quality of care that you received during your recovery period? excellent 8. Did you receive adequate pain relief while in the recovery period? yes 9. Do you feel that you had all the information that you needed to care for yourself once at home? yes 10. Are there any other comments that you have regarding your recovery period? no 11. Do you have the information for your next follow-up visit? yes Comments: Referred patient to Adriana Lozano RN [phone] RLW: J: [id number] CC: Shay Isaac MD, <Primary Care Physician> THIS DOCUMENT WAS ELECTRONICALLY AUTHENTICATED BY Adriana Lozano RN ON 01/11/2010 09:23:54 documented in this encounter Plan of Treatment Not on file documented as of this encounter Visit Diagnoses Not on filedocumented in this encounter Care Teams Supervisor Varnish Relationship Specialty Start Date End Date Shay Isaac MD PCP - General 03/20/14 documented as of this encounter
--- OUTSIDE RECORDS SUMMARY | 2025-05-09 12:35 | XMS_ITS | Encounter Summary ---
Author Organization Valery Lehman [facility] Address [address] [place] [address] Care Team Providers Care Chairman Emeritus Name Role Phone Shay Isaac MD Primary Care Provider [phone] Encounter Details Date Type Department Care Team (Late st Contact Info) Description 12/06/2009 Clinical Conversion Encounter Department of Urology [facility] Urology [address] [place] [address] Silver Brush MD [address] [place] [address] Social History Tobacco Use Types Packs/Day Years Used Date Smoking Tobacco: Never Assessed Sex and Gender Information Value Date Recorded Sex Assigned at Not on file Legal Sex Male 5:00 PM EST Gender Identity Not on file Sexual Orientation Not on file documented as of this encounter Miscellaneous Notes * Telephone Encounter - Silver Brush MD - 05/30/2014 10:11 PM EST [id number],RICHARD REVISED [facility] [place], [place]. Recorded as Task Date: 12/05/2009 08:53 AM, Created By: DWAYNE SHORT Task Name: Provider Initiated Assigned To: Crystal Arias Regarding Patient: CJ DEXTER, Status: Active Comment: DWAYNE SHORT - 05 Dec 2009 8:53 AM TASK CREATED set up amb cysto bladder distention, bx in OR with Dr Brush. DX is r/o Interstitial cystitis .I spoke to patient already. Elda Garcia - 05 Dec 2009 10:25 AM TASK REASSIGNED: Previously Assigned To Elda Moran Kellie - 06 Dec 2009 9:21 AM TASK REPLIED TO: Previously Assigned To Lorena Melton As per our conversation, Dr. Brush will need to fill out surgical forms so this can be booked. Elda Moran - 06 Dec 2009 9:21 AM TASK EDITED Elda Moran 06 Dec 2009 9:21 AM TASK REASSIGNED: Previously Assigned To Elda Moran does greyson need to see this pt first 12/06/09-- spoke with Dr. Brush starting paperwork Electronically signed by:Crystal Arias Dec 06 2009 10:49AM EST documented in this encounter Plan of Treatment Not on file documented as of this encounter Visit Diagnoses Not on filedocumented in this encounter Care Teams Chairman Emeritus Relationship Specialty Start Date End Date Shay Isaac MD PCP - General 03/20/14 documented as of this encounter
== END 2025-05-09 09:47 ==
LOC: HO.BBR 09:46
PROVIDERS: PCP Physician Assistant Medical; Visit Provider Internal Medicine Hematology & Oncology
DX: D45 Polycythemia vera (principal)
CPT/HCPCS: 85014; 85018; 99195